=== PATIENT | female | born 2000 | race Hispanic/Latino ===

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

== ENCOUNTER 2021-05-28 13:58 | Emergency (ER) | payer OTHER ==
--- OUTSIDE RECORDS SUMMARY | 2021-05-28 14:00 | XMS REPORT | Continuity of Care Document ---
:2000 Author Organization [facility] Address [facility] Richard Galicia [address] [place] [id number] Care Team Providers Name Role Phone NONSTAFF Primary Care Physician Unavailable Lexie ROGERS Attending Clinician Unavailable Payers Payer Name Policy Type Policy Number Effective Date Expiration Date Lm bartholomew [place] Amber [id number] 2017 2012 [facility] 00:00:00 00:00:00 - [facility] Problems This patient has no known problems. Allergies, Adverse Reactions, Alerts This patient has no known allergies or adverse reactions. Medications This patient has no known medications. Procedures This patient has no known procedures. Encounters Start End Encounter Admission Attending Care Care Encounter Source Date/Time Date/Time Type Type Clinicians Facility Department ID 2017-06-30 2017-06-30 Departed ER [facility] [id number] WALTER Mendoza 19:25:00 22:00:[address] Results Test Description Test Time Test Comments Results Result Comments Source LOWER LEG LEFT [facility] [address] [place], [place] [address] Patient Name: ELISEO PEREZ MR #: [id number] : 2000 Age/Sex: 16/F Req #: [id number] Adm Physician: Ordered by: MEGAN JOYNER RECORDS MANAGER Report #: [id number] Location: ER Room/Bed: Procedure: [id number] DX/LOWER LEG LEFT Exam Date: 06/30/17 Exam Time: 1950 REPORT STATUS: Signed EXAMINATION: ANKLE 3+ VIEWS LEFT, FOOT LEFT COMPLETE, LOWER LEG LEFT 06/30/2017 7:37 PM COMPARISON: None INDICATION: Fall, rule out fracture DISCUSSION: 3 views of the left ankle (AP, lateral, and oblique) 2 views of the left lower leg (AP and lateral) 3 views of the left foot (AP, lateral, and oblique) No fracture or dislocation. Joint spaces are maintained. Soft tissues are unremarkable IMPRESSION: No acute radiographic abnormality of the left ankle, leg, or foot. Eva Jacobs MD Signed by: Dr. Eva Jacobs M.D. on 06/30/2017 9:00 PM Dictated By: EVA JACOBS MD 99 Transcribed By: SELWYN on 06/30/172099 COPY TO: MEGAN JOYNER RECORDS MANAGER FOOT LEFT COMPLETE [place] [address] Patient Name: ELISEO PEREZ MR #: [id number] : 2000 Age/Sex: 16/F Req #: [id number] Adm Physician: Ordered by: MEGAN JOYNER RECORDS MANAGER Report #: [id number] Location: ER Room/Bed: Procedure: [id number] DX/FOOT LEFT COMPLETE Exam Date: 06/30/17 Exam Time: 2007 REPORT STATUS: Signed EXAMINATION: ANKLE 3+ VIEWS LEFT, FOOT LEFT COMPLETE, LOWER LEG LEFT 06/30/2017 7:37 PM COMPARISON: None INDICATION: Fall, rule out fracture DISCUSSION: 3 views of the left ankle (AP, lateral, and oblique) 2 views of the left lower leg (AP and lateral) 3 views of the left foot (AP, lateral, and oblique) No fracture or dislocation. Joint spaces are maintained. Soft tissues are unremarkable IMPRESSION: No acute radiographic abnormality of the left ankle, leg, or foot. Eva Jacobs MD Signed by: Dr. Eva Jacobs M.D. on 06/30/2017 9:00 PM Dictated By: EVA JACOBS MD 99 Transcribed By: SELWYN on 06/30/172099 COPY TO: MEGAN JOYNER RECORDS MANAGER ANKLE 3+ VIEWS [place] [address] Patient Name: ELISEO PEREZ MR #: [id number] : 2000 Age/Sex: 16/F Req #: [id number] Adm Physician: Ordered by: MEGAN JOYNER RECORDS MANAGER Report #: [id number] Location: ER Room/Bed: Procedure: [id number] DX/ANKLE 3+ VIEWS LEFT Exam Date: 06/30/17 Exam Time: 2000 REPORT STATUS: Signed EXAMINATION: ANKLE 3+ VIEWS LEFT, FOOT LEFT COMPLETE, LOWER LEG LEFT 06/30/2017 7:37 PM COMPARISON: None INDICATION: Fall, rule out fracture DISCUSSION: 3 views of the left ankle (AP, lateral, and oblique) 2 views of the left lower leg (AP and lateral) 3 views of the left foot (AP, lateral, and oblique) No fracture or dislocation. Joint spaces are maintained. Soft tissues are unremarkable IMPRESSION: No acute radiographic abnormality of the left ankle, leg, or foot. Eva Jacobs MD Signed by: Dr. Eva Jacobs M.D. on 06/30/2017 9:00 PM Dictated By: EVA JACOBS MD 99 Transcribed By: SELWYN on 06/30/172099 COPY TO: MEGAN JOYNER NP
[2021-05-28 14:30] LABS: Urine Blood 2+ (Negative); Urine Glucose Negative (Negative); Urine Protein Trace (Negative); Urine Specific Gravity 1.025 (1.005-1.030)
[2021-05-28 14:42] LABS: Absolute Lymphocytes (CBC) 2.6 K/uL (0.7-4.9); Hematocrit 34.7 % (36.0-45.0); Lymphocytes % 22.6 % (15.3-44.8); MPV 7.8 fL (7.6-11.3); RBC Red Blood Cell Count 4.61 M/uL (3.86-4.86)
[2021-05-28 14:56] LABS: BUN Blood Urea Nitrogen 4 mg/dL (7-18); Bicarbonate 22 mmol/L (21-32); Glucose Level 90 mg/dL (74-106); Potassium 3.6 mmol/L (3.5-5.1); Sodium Level 135 mmol/L (136-145)
[2021-05-28 15:11] LABS: Anisocytosis 1+; Blood Morphology Comment NOTED (NOT SEEN); Platelet Estimate INCR; White Blood Cell Scan OK (OK)
[2021-05-28 15:15] LABS: HCG, Quantitative 87944 mIU/mL (1-3)
--- NOTE | 2021-05-28 15:59 | RAD REPORT ---
EXAM DESCRIPTION: US - Transvaginal OB - 05/28/2021 3:47 pm CLINICAL HISTORY: with abdominal pain COMPARISON: None. FINDINGS: The uterus measures 9 x 6 x 6 centimeters. Gestational sac is present within the endometr ium measuring 3.8 x 3 x 3.9 centimeters. Within this is a pole with a crown-rump length 2.2 lorenza timeters. Cardiac activity 176 beats per minute. 6 millimeter subchorionic bleed Ovaries are normal in size and echotexture.. The right adnexa unremarkable. Limited evaluation of the left at adnexa secondary to overlying bowel gas No significant free fluid IMPRESSION: Single live into with an estimated gestational age 9 weeks 0 days [facility] 01/01/20 22
--- NOTE | 2021-05-28 16:04 | EDPHYS ---
Physician Documentation [facility] Name: Jessica Tavares Age: 20 yrs Sex: Female : 2000 Arrival Date: 05/28/2021 Time: 14:02 Bed 20 Private MD: ED Physician Hernando Foster HPI: 05/28 14:46 This 20 yrs old Female presents to ER via Ambulatory with complaints of kb Vaginal Bleeding, + Preg <12wks, Abdominal Cramping. 16:01 The patient presents to the emergency department with abdominal pain, described as kb crampy, vaginal bleeding, described as spotting. The estimated gestational age is 8 weeks. course: care: none. Previous pregnancies: the patient has never been . Associated signs and symptoms: Pertinent positives: abdominal pain, vaginal bleeding. The patient has not experienced similar symptoms in the past. The patient has not recently seen a physician. Pt reports bright red blood when she wiped and abd cramping that started today. CAme in to make sure everything was ok. Has not seen an OB yet. 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 - Social history:: Smoking status: Patient denies any tobacco usage or history of. ROS: 16:01 Constitutional: Negative for fever, chills, and weight loss. kb 16:01 Abdomen/GI: Positive for abdominal cramps. 16:01 : Positive for vaginal bleeding. 16:01 All other systems are negative. Exam: 16:01 Constitutional: This is a well developed, well nourished patient who is awake, alert, kb and in no acute distress. Head/Face: Normocephalic, atraumatic. ENT: Moist Mucous membranes Cardiovascular: Regular rate and rhythm with a normal S1 and S2. No gallops, murmurs, or rubs. No pulse deficits. Respiratory: Respirations even and unlabored. No increased work of breathing. Talking in full sentences Abdomen/GI: Soft, non-tender. No distention Skin: Warm, dry with normal turgor. Normal color. MS/ Extremity: Pulses equal, no cyanosis. Neurovascular intact. Full, normal range of motion. Neuro: Awake and alert, GCS 15, oriented to person, place, time, and situation. Moves all extremities. Normal gait. Psych: Awake, alert, with orientation to person, place and time. Behavior, mood, and affect are within normal limits. Vital Signs: 14:08 BP 124 / 70; Pulse 72; Resp 18; Temp 98.4; Pulse Ox 100% ; Weight 102.06 kg; Height 5 ap3 ft. (152.40 cm); 15:34 BP 121 / 71; Pulse 70; Resp 16; Temp 98.6; Pulse Ox 98% ; Pain 0/10; cb5 14:08 Body Mass Index 43.94 (102.06 kg, 152.40 cm) ap3 MDM: 14:17 Patient medically screened. kb 16:01 Data reviewed: vital signs, nurses notes. Data interpreted: Pulse oximetry: on room air kb is 100 %. Interpretation: normal. Counseling: I had a detailed discussion with the patient and/or guardian regarding: the historical points, exam findings, and any diagnostic results supporting the discharge/admit diagnosis, lab results, radiology results, the need for outpatient follow up, an OB/Gyne specialist, to return to the emergency department if symptoms worsen or persist or if there are any questions or concerns that arise at home. 05/28 14:18 Order name: Abo/rh Typing; Complete Time: 16:03 kb 05/28 14:18 Order name: Basic Metabolic Panel; Complete Time: 15:19 kb 05/28 14:18 Order name: CBC with Diff; Complete Time: 15:19 kb 05/28 14:18 Order name: Quantitative Hcg; Complete Time: 15:19 kb 05/28 14:30 Order name: Urine Dipstick-Ancillary; Complete Time: 14:40 EDMS 05/28 14:32 Order name: Urine --Ancillary (enter results) bd 05/28 14:18 Order name: IV Saline Lock; Complete Time: 14:37 kb 05/28 14:18 Order name: Labs collected and sent; Complete Time: 14:37 kb 03/08 14:18 Order name: NPO; Complete Time: 14:37 kb 05/28 14:18 Order name: Urine Dipstick-Ancillary (obtain specimen); Complete Time: 14:37 kb 05/28 14:18 Order name: Urine Test (obtain specimen); Complete Time: 14:37 kb 05/28 14:18 Order name: US Transvaginal Ob; Complete Time: 16:00 kb 05/28 15:11 Order name: CBC Smear Scan; Complete Time: 15:19 EDMS Administered Medications: No medications were administered Point of Care Testing: Urine : 16:17 hCG Reading: Positive; cb5 Disposition: 17:08 Co-signature as Attending Physician, Hernnado Foster MD. rn Disposition Summary: 05/28/21 16:03 Discharge Ordered Location: Home kb Condition: Stable kb Diagnosis - Threatened kb Followup: kb - With: Emergency Department - When: As needed - Reason: Worsening of condition Followup: kb - With: Private Physician - When: 2 - 3 days - Reason: Recheck today's complaints, Continuance of care, Re-evaluation by your physician Discharge Instructions: - Discharge Summary Sheet kb - Threatened Miscarriage, [id number] kb - Vaginal Bleeding During , First Trimester, [id number] kb Forms: - Medication Reconciliation Form kb - Thank You Letter kb - Antibiotic Education kb - Prescription Opioid Use kb Signatures: Dispatcher [employer] Maria Fernanda Morris, NURSE ANESTHESIA PROGRAM DIRECTOR-C NURSE ANESTHESIA PROGRAM DIRECTOR-Hernando Swan MD MD rn Trish Deleon RN RN ap3
--- NOTE | 2021-05-28 16:04 | ER ---
Nurse's Notes [facility] Name: Jessica Tavares Age: 20 yrs Sex: Female : 2000 Arrival Date: 05/28/2021 Time: 14:02 Bed 20 Private MD: Diagnosis: Threatened Presentation: 05/28 14:08 Chief complaint: Patient states: she has been nauseated with severe lower abdominal ap3 cramping. patient reports she is approx 8 weeks , and has noticed vaginal bleeding which she described as bright red. Coronavirus screen: At this time, the client does not indicate any symptoms associated with coronavirus-19. Ebola Screen: No symptoms or risks identified at this time. Initial Sepsis Screen: Does the patient meet any 2 criteria? No. Patient's initial sepsis screen is negative. Does the patient have a suspected source of infection? No. Patient's initial sepsis screen is negative. Risk Assessment: Do you want to hurt yourself or someone else? Patient reports no desire to harm self or others. Onset of symptoms was May 28, 2021. 14:08 Method Of Arrival: Ambulatory ap3 14:08 Acuity: HEATHER 3 ap3 Triage Assessment: 14:11 General: Appears in no apparent distress. Behavior is calm, cooperative, appropriate ap3 for age. Pain: Complains of pain in abdomen Pain currently is 0 out of 10 on a pain scale. at worst was 6 out of 10 on a pain scale. Is intermittent. Neuro: Level of Consciousness is awake, alert, obeys commands, Oriented to person, place, time, situation, Appropriate for age Speech is normal. Cardiovascular: Patient's skin is warm and dry. Respiratory: Airway is patent Respiratory effort is even, unlabored. : Reports cramping, low abdominal cramping vaginal bleeding that is bright red. CPHT: 14:13 LMP 03/26/2021 ap3 14:46 1, 0, Living 0, LMP 03/26/2021 kb Historical: - Allergies: 14:11 No Known Allergies; ap3 - Home Meds: 14:11 None [Active]; ap3 - PMHx: 14:11 None; ap3 - Immunization history:: Client reports receiving the 1st dose of the Covid vaccine, Flu vaccine is up to date. - Social history:: Smoking status: Patient denies any tobacco usage or history of. Screenin:13 Abuse screen: Denies threats or abuse. Nutritional screening: No deficits noted. ap3 Tuberculosis screening: No symptoms or risk factors identified. Fall Risk Fall in past 12 months (25 points). Assessment: 14:30 General: Appears in no apparent distress. comfortable, obese, well groomed, Behavior is cb5 calm, cooperative, appropriate for age. Pain: Complains of pain in abdomen Pain currently is 3 out of 10 on a pain scale. Quality of pain is described as crampy. Neuro: No deficits noted. Level of Consciousness is awake, alert, obeys commands, Oriented to person, place, time, situation, Appropriate for age. Cardiovascular: No deficits noted. Respiratory: No deficits noted. GI: No deficits noted. : No deficits noted. EENT: No deficits noted. Derm: No deficits noted. Musculoskeletal: No deficits noted. 15:09 Reassessment: Patient and/or family updated on plan of care and expected duration. Pain cb5 level reassessed. Vital Signs: 14:08 BP 124 / 70; Pulse 72; Resp 18; Temp 98.4; Pulse Ox 100% ; Weight 102.06 kg; Height 5 ap3 ft. (152.40 cm); 15:34 BP 121 / 71; Pulse 70; Resp 16; Temp 98.6; Pulse Ox 98% ; Pain 0/10; cb5 14:08 Body Mass Index 43.94 (102.06 kg, 152.40 cm) ap3 ED Course: 14:02 Patient arrived in ED. kz 14:07 [facility]C [facility] kb 14:07 Hernando Foster MD is Attending Physician. kb 14:10 Triage completed. ap3 14:13 Arm band placed on right wrist. ap3 14:21 [place] Ren, CRISTIAN is Primary Nurse. cb5 14:24 Initial lab(s) drawn, by ED staff, sent to lab. Urine collected: clean catch specimen. kj1 Inserted saline lock: 20 gauge in right antecubital area, using aseptic technique. Blood collected. 15:10 Patient has correct armband on for positive identification. Call light in reach. Side cb5 rails up X 1. 15:46 US Transvaginal Ob In Process Unspecified. EDMS 16:17 No provider procedures requiring assistance completed. cb5 16:17 IV discontinued. cb5 Administered Medications: No medications were administered Point of Care Testing: Urine : 16:17 hCG Reading: Positive; cb5 Outcome: 16:03 Discharge ordered by MD. angel 16:17 Discharged to home ambulatory. cb5 16:17 Condition: stable 16:17 Discharge instructions given to patient. 16:18 Patient left the ED. cb5 Signatures: Dispatcher [employer] EDMaria Fernanda Avalos, Trish Franks, RN RN ap3 Sigrid Shetty Colleen, CRISTIAN RN cb5 Mirtha Moulton
[2021-05-28 16:45] VITALS: BP 121/71; TEMP 98.6; O2SAT 98
[2021-05-28 18:29] LABS: Urine Specific Gravity/Preg 1.025 (1.005-1.030)
== END 2021-05-28 16:18 | disposition home or self-care (01) ==
LOC: ER 13:58
DX: O20.0 Threatened abortion (principal); Z3A.09 9 weeks gestation of pregnancy
CPT/HCPCS: 36415; 76817; 80048; 81003; 81025; 84702; 85025; 86900; 86901; 99284

== ENCOUNTER 2021-08-06 01:09 | Emergency (ER) | payer OTHER ==
--- OUTSIDE RECORDS SUMMARY | 2021-08-06 01:12 | XMS REPORT | Continuity of Care Document ---
:2000 Author Organization [facility] Address [address] [place] [address] Care Team Providers Name Role Phone NONSTAFF Primary Care Physician Unavailable Lexie ROGERS Attending Clinician Unavailable Payers Payer Name Policy Type Policy Number Effective Date Expiration Date S puma Clark [id number] 2017 2012 [facility] 00:00:00 00:00:00 [facility] Problems This patient has no known problems. Allergies, Adverse Reactions, Alerts This patient has no known allergies or adverse reactions. Medications This patient has no known medications. Procedures This patient has no known procedures. Encounters Start End Encounter Admission Attending Care Care Encounter Source Date/Time Date/Time Type Type Clinicians Facility Department ID 2017-06-30 2017-06-30 Departed ER [facility] [id number] WALTER Goodman 19:25:00 22:00:[address] s Room [facility] Results Test Description Test Time Test Comments Results Result Comments Source CULTURE, URINE 2021-07-13 SPECIMEN NUMBER: [id number] CULTURE, URINE SPECIMEN NUMBER: [id number] SPECIMEN COMMENT: URINE SOURCE: URINE REPORT STATUS: FINAL FINAL REPORT: 07/13/2021 >100,000 CFU/ML UROGENITAL SUSIE PRESENT NO COMMON PATHOGENS DRUG ABUSE SCREEN 10 REFLEX CONFIRM 2021-07-12 05:43:38 Test Item Value Reference Range Interpretation Comme nts AMPHETAMINES (test code = NEGATIVE NEGATIVE 3201) BARBITURATES (test code = NEGATIVE NEGATIVE 3202) BENZODIAZEPINES (test code = NEGATIVE NEGATIVE 3203) CANNABINOIDS (test code = NEGATIVE NEGATIVE 3204) COCAINE METABOLITE (test code NEGATIVE NEGATIVE = 3205) OPIATES (test code = 3209) NEGATIVE NEGATIVE OXYCODONE (test code = 92587) NEGATIVE NEGATIVE PHENCYCLIDINE (test code = NEGATIVE NEGATIVE 3210) METHADONE (test code = 3207) NEGATIVE NEGATIVE BUPRENORPHINE (test code = NEGATIVE NEGATIVE 24328) SOURCE (test code = 271765) URINE SEE BELOW FOR THRESHOLDS AND IMPORTANT M ETHOD NOTES ANALYTE SCREENING CUTOF F CONFIRMATORY CUTOFF AMPHETAMIN ES 500 NG/ML 100 NG/MLBARBITURAT ES 200 NG/ML 100 NG/MLBENZODIAZE PINES 200 NG/ML 100 NG/MLCANNABINOI DS (THC) 20 NG/ML 15 NG/MLCOCAINE ME TABOLITES 150 NG/ML 100 NG/MLOPIATE MET ABOLITES 300 NG/ML 100 NG/MLOXYCODONE 100 NG/ML 100 NG/MLPHENCYCLID INE (PCP) 25 NG/ML 25 NG/MLMETHADONE 300 NG/ML 100 NG/MLBUPRENORPH INE 5 NG/ML 5 NG/ML NOTE: Screening methodology is qualitative Enz yme Immunoassay.The screening metho d may be less sensitive for c ertain medicationsincl uding clonazepam and lorazepam in th e benzodiazepine assay andtramad ol or fentanyl in the opiate assa y, amongst others. Patientcomplian ce, hydration status, timing and dose of medications, dr ugabsorption and specimen qualit y may affect screening assay .For clinical discrepancies, consider directed testing for spe cificcompounds or contact the lab oratory within specimen stabil shirin back for confirmatory te sting. This test is specified for m edicalpurposes only. It is not yoandy d for forensic use. UNLESS OTH ERWISE INDICATED, ALL TESTING PER FORMED [facility]CL[facility] PATHOLOGY [facility] [address] [place] [address] LABORATORY DIRE CTOR: YAYA MERCER M.D. CLIA NUMBER [id number] [place]. [id number] GLUCOSE 1 HR POST 50 [id number] 04:51:49 Test Item Value Reference Range Interpretation Comments GLUCOSE 1 HR POST 50 GM (test code = 87 MG/DL <140 2005) CULTURE, [id number] 08:46:16SPECIMEN NUMBER: [id number] CULTURE, URINE SPECIMEN NUMBER: [id number] SPECIMEN COMMENT: URINE SOURCE: URINE REPORT STATUS: FINAL FINAL REPORT: 06/09/2021 & gt;100,000 CFU/ML UROGENITAL SUSIE PRESENT NO COMMON PATHOGENS DRUG ABUSE SCREEN 10 REFLEX [id number] 12:01:40 Test Item Value Reference Interpretation Comments Range COMMENTS (test code TEST NOT Unable t o perform = 3222) PERFORMED testing due to a laboratory erro r.Charges adjusted as natalie licable. Note: Valid ity testing suggest s an altered, adulte rated or compromised specimen. Analytic detec tion may be affected. Consideration s hould be given to repeat analysis on a newly acquired specimen or cli nical correlation and medication review. AMPHETAMINES (test TEST NOT NEGATIVE code = 3201) PERFORMED BARBITURATES (test TEST NOT NEGATIVE code = 3202) PERFORMED BENZODIAZEPINES TEST NOT NEGATIVE (test code = 3203) PERFORMED CANNABINOIDS (test TEST NOT NEGATIVE code = 3204) PERFORMED COCAINE METABOLITE TEST NOT NEGATIVE (test code = 3205) PERFORMED OPIATES (test code = TEST NOT NEGATIVE 3209) PERFORMED OXYCODONE (test code TEST NOT NEGATIVE = 59851) PERFORMED PHENCYCLIDINE (test TEST NOT NEGATIVE code = 3210) PERFORMED METHADONE (test code TEST NOT NEGATIVE = 3207) PERFORMED BUPRENORPHINE (test TEST NOT NEGATIVE code = 63569) PERFORMED SOURCE (test code = TEST NOT * SEE BELOW FOR 332051) PERFORMED THRESHOLDS AND IMPORTANT METHOD NOTES * ANALYTE SCREENING CUTOF F CONFIRMATORY CUTOFF ___AMPHETAMINES 500 NG/M L 100 NG/MLBARBITURAT ES 200 NG /ML 100 NG/MLBENZODIAZE PINES 200 NG /ML 100 NG/MLCANNABINOI DS (THC) 20 NG /ML 15 NG/MLCOCAINE ME TABOLITES 150 NG /ML 100 NG /MLOPIATE METABOLITES 300 NG/ML 100 NG/MLOXYCOD ONE 10 0 NG/ML 10 0 NG/MLPHENCYCLID INE (PCP) 25 NG /ML 25 NG/MLMETHADONE 300 NG /ML 100 NG/MLBUPRENORPH INE 5 NG /ML 5 NG /ML NOTE: Screening metho dology is qualitative Enz yme Immunoassay.The screening metho d may be less sensitive for certain medicationsincl uding clonazepam and lorazepam in the benzodia zepine assay andtramad ol or fentanyl in the opiate assay, amongst others. Patientcomplian ce, hydration statu s, timing and dose of med ications, drugabsorption and specimen qualit y may affect screenin g assay.For clini hussein discrepancies, consider directed testin g for specificcompoun ds or contact the lab oratory within specimen stability tofor navarro for confirmatory te sting. This test is sp ecified for medicalpurp oses only. It is no t valid for forensic us e. UNLESS OTHERWIS E INDICATED, ALL TESTING PERFORMED [facility]. [address] [address] 4 LABORATORY DIR MESHA: YAYA BARAJAS M.D. CLIA NUMBER [id number] CAP ACCREDITATION N O. [id number] HEMOGLOBIN [id number] 10:51:35 Test Item Value Reference Range Interpretation Comments HEMOGLOBIN A1 (test 97.8 % 95.0-98.5 code = 2575) HEMOGLOBIN A2 (test 2.2 % 1.6-3.7 code = 2576) HEMOGLOBIN F () 0.0 % 0.0-2.0 (test code = 2722) HEMOGLOBIN S (test NONE % NONE DETECTED code = 2724) HEMOGLOBIN C (test NONE % NONE DETECTED code = 2726) OTHER HEMOGLOBIN NONE DETEC % NONE DETECTED VARIANT (test code = 24271) PATHOLOGIST'S (NOTE) NO ABNORMAL INTERPRETATION (test HEMOGLO BINS code = 2577) IDENTIFIED. IF NOT ALREADY PERFORM ED, TESTINGFOR SERU M IRON, TIBC, AND SERAFIN TIN IS SUGGESTED. IF IRON DEFICIENCYEXIST S AND IF HEMOGLOBIN D OES NOT NORMALIZE AFTER IRON STORES AREREPLE NISHED, A REPEAT HEMOGL OBIN ELECTROPHORESIS IS SUGGESTED. IRONDEFICIENCY CAN OBSCURE THE IJEOMA GNOSIS OF ALPHA-THALAS SEMIA OR CAN CAUSEA S PURIOUS DECREASE IN HbA 2, OBSCURING THE DIAGNOSIS OFBETA-THALASSE KATHLEEN. CESAR HOOVER M.D. CT/NG, NAAT, [id number] 18:48:48 Test Item Value Reference Range Interpretation Comments GONORRHEA, NAAT NEGATIVE NEGATIVE IMPORTANT (test code = NOTICE: [place] [address]) [email or web address] Note: Assay methodology is nucleic acid amplification b y web solutions architect mediated amplification ( TMA) utilizing the A ptima Combo 2 Assay. CHLAMYDIA, NAAT NEGATIVE NEGATIVE IMPORTANT (test code = NOTICE: [place] [address]) [email or web address] Note: Assay methodology is nucleic acid amplification b y web solutions architect mediated amplification ( TMA) utilizing the A ptima Combo 2 Assay. VARICELLA ZOSTER [id number] 16:11:55 Test Item Value Reference Range Interpretation Comments VARICELLA ZOSTER IgG 177 INDEX SEE BELOW INTERPRETATION (test code = 99367) VZV IgG N EGATIVE . . . . . . . . . . . . INDEX <135 EQUIVOCAL. . . . . . . . . . . . I NDEX 135-164 NOTE: CONSIDER RETEST ING IN A CLINICALLY SUIT ABLE KAYY OD OF TIME, NO SOONER THAN 1-2 WEEKS. POSITIVE . . . . . . . . . . . . INDEX >=165 OBSTETRIC PANEL + [id number] 03:58:49 Test Item Value Reference Range Interpretation Comments WBC (test code = 11.7 K/UL 3.5-11.0 H 1001) RBC (test code = 4.41 M/UL 3.80-5.40 1002) HEMOGLOBIN (test 10.8 G/DL 11.5-15.5 L code = 1003) HEMATOCRIT (test 33.6 % 34.0-45.0 L code = 1004) MCV (test code = 76.2 fL 80.0-99.0 L 1005) MCH (test code = 24.5 PG 25.0-33.0 L 1006) MCHC (test code = 32.1 G/DL 31.0-36.0 1007) RDW (test code = 18.3 % 11.5-15.0 H 1038) NEUTROPHILS (test 72.5 % code = 1008) LYMPHOCYTES (test 21.3 % code = 1010) MONOCYTES (test 3.8 % code = 1011) EOSINOPHILS (test 1.8 % code = 1012) BASOPHILS (test 0.3 % code = 1013) IMMATURE 0.3 % GRANULOCYTES (test code = 1036) NUCLEATED RBCS 0.0 /100 WBC'S See_Comment [Automate d message] (test code = 1065) The syste m which generated this result transmit leonardo reference range : 0.0. The refere nce range was not u sed to interpret th is result as normal/abnormal . PLATELET COUNT 390 K/UL 130-400 (test code = 1015) ABSOLUTE 8.49 K/UL 1.50-7.50 H NEUTROPHILS (test code = 1066) ABSOLUTE 2.49 K/UL 1.00-4.00 LYMPHOCYTES (test code = 1067) ABSOLUTE MONOCYTES 0.45 K/UL 0.20-1.00 (test code = 1068) ABSOLUTE 0.21 K/UL 0.00-0.50 EOSINOPHILS (test code = 1040) ABSOLUTE BASOPHILS 0.03 K/UL 0.00-0.20 (test code = 1069) ABS IMMATURE 0.04 K/UL 0.00-0.10 GRANULOCYTES (test code = 1020) ABS NUCLEATED RBCS 0.00 K/UL 0.00-0.11 (test code = 25588) BLOOD TYPE AND RH O POSITIVE A HISTORI HUSSEIN RECORD (test code = 3901) CHECK FOR PREVIOUS RESULTS IS NOT PERFORMED.THESE RESULTS SHOULD BE CORRELATED WITH RESULTS OF PRIO R BLOODTYPING AND ANTIBODY SCREEN STUDIES. ANTIBODY SCREEN NEGATIVE NEGATIVE A HISTORICA L RECORD (test code = 3902) CHECK FOR PREVIOUS RESULTS IS NOT PERFORMED.THESE RESULTS SHOULD BE CORRELATED WITH RESULTS OF PRIO R BLOODTYPING AND ANTIBODY SCREEN STUDIES. RUBELLA ANTIBODY 31 IU/ML SEE BELOW SCREEN (test code = INTERPRE TATION 4600) RUBELLA IgG NON-REACTIVE/NO N-IMM UNE . . . . . . . IU/ML < 10 REACTIVE/IM MUNE . . . . . . . . . . . IU/ML >=10 RUBELLA IgG INTERP REACTIVE REACTIVE (test code = 43599) HEPATITIS B SURF AG NON-REACTIVE NON-REACTIVE (test code = 1808) RPR (test code = NON-REACTIVE NON-REACTIVE 52434) RPR TITER (test NOT INDIC. NOT INDIC. code = 3500) TITER HIV 1/2 4TH GEN, NON-REACTIVE NON-REACTIVE RFLX CONF (test code = 3514) HEPATITIS C REFLEX [id number] 03:58:49 Test Item Value Reference Range Interpretation Comments HEPATITIS C ANTIBODY (test code NON-REACTIVE NON-REACTIVE = 4675) [id number] 03:24:31 Test Item Value Reference Range Interpretation Comments RPR RESULT (test code = NON-REACTIVE NON-REACTIVE 3501) RPR TITER (test code = 3500) NOT INDIC. TITER NOT INDIC. ANKLE 3+ VIEWS LEFT [facility] [address] [address] Patient Name: ELISEO PEREZ MR #: [id number] : 2000 Age/Sex: 16/F #: [id number] Adm Physician: Ordered by: MEGAN JOYNER FISCAL OFFICER Report #: [id number] Location: ER Room/Bed: Procedure: [id number] DX/ANKLE 3+ VIEWS LEFT Exam Date: 06/30/17 [...] JACOBS MD 99 Transcribed By: SELWYN on COPY TO: MEGAN JOYNER NPLOWER LEG LEFT [place] [address] Patient Name: ELISEO PEREZ MR #: [id number] : 2000 Age/Sex: 16/F #: [id number] Adm Physician: Ordered by: MEGAN JOYNER FISCAL OFFICER Report #: [id number] Location: ER Room/Bed: Procedure: [id number] DX/LOWER LEG LEFT Exam Date: 06/30/17 Exam [...] SELWYN on 06/30/172099 COPY TO: MEGAN JOYNER NPFOOT LEFT COMPLETE [place] [address] Patient Name: ELISEO PEREZ MR #: [id number] : 2000 Age/Sex: 16/F #: [id number] Adm Physician: Ordered by: MEGAN JOYNER NP Report #: [id number] Location: ER Room/Bed: Procedure: [id number] DX/FOOT LEFT COMPLETE Exam Date: 06/30/17 Exam Time: 2007 REPORT STATUS: Signed EXAMINATION: ANKLE 3+ VIEWS LEFT, FOOT LEFT COMPLETE, LOWER LEG LEFT 06/30/2017 7:37 PM COMPARISON: None INDICATION: Fall, rule out fracture DISCUSSION: 3 views of the left ankle (AP, lateral, and oblique) 2 viewsof the left lower leg (AP and lateral) 3 views of the left foot (AP, lateral, and oblique) Nofracture or dislocation. Joint spaces are maintained. Soft tissues are unremarkable
[2021-08-06 03:14] LABS: Urine Blood Trace-lysed (Negative); Urine Glucose Negative (Negative); Urine Protein Trace (Negative); Urine Specific Gravity >=1.030 (1.005-1.030)
[2021-08-06 03:50] LABS: Urine Bacteria 20-50 /HPF (<20); Urine Urothelial Cells <5 /HPF (NONE SEEN)
--- NOTE | 2021-08-06 04:08 | EDPHYS ---
Physician Documentation [facility] Name: Jessica Tavares Age: 20 yrs Sex: Female : 2000 Arrival Date: 08/06/2021 Time: 01:14 Bed 17 Private MD: ED Physician Miles Long HPI: 08/06 03:05 This 20 yrs old Female presents to ER via Ambulatory with complaints of mh7 Vaginal Itching. 03:05 The patient presents with vaginal discharge, that is a moderate amount of curd-like, mh7 white discharge. Onset: The symptoms/episode began/occurred 1 week(s) ago. Modifying factors: The symptoms are alleviated by nothing, the symptoms are aggravated by urinating. Associated signs and symptoms: Pertinent negatives: constipation, cramping, diarrhea, dyspareunia, fever, hematuria, nausea, urinary frequency, vaginal bleeding, vomiting. Severity of symptoms: At their worst the symptoms were moderate, 3 day(s) ago, in the emergency department the symptoms are unchanged. The patient is sexually active, reportedly has a single partner, uses protection during intercourse. States that she is 19 weeks . She complains of white, cottage cheese like vaginal discharge, and burning with urination for a week. Denies any abdominal pain, pelvic pain, fever, nausea, vomiting, vaginal bleeding.. 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 - Social history:: Smoking status: Patient denies any tobacco usage or history of. ROS: 03:05 Constitutional: Negative for fever, chills, and weight loss, Eyes: Negative for injury, mh7 pain, redness, and discharge, ENT: Negative for injury, pain, and discharge, Neck: Negative for injury, pain, and swelling, Cardiovascular: Negative for chest pain, palpitations, and edema, Respiratory: Negative for shortness of breath, cough, wheezing, and pleuritic chest pain, Abdomen/GI: Negative for abdominal pain, nausea, vomiting, diarrhea, and constipation, Back: Negative for injury and pain, MS/Extremity: Negative for injury and deformity, Skin: Negative for injury, rash, and discoloration, Neuro: Negative for headache, weakness, numbness, tingling, and seizure, Psych: Negative for depression, anxiety, suicide ideation, homicidal ideation, and hallucinations, Allergy/Immunology: Negative for hives, rash, and allergies, Endocrine: Negative for neck swelling, polydipsia, polyuria, polyphagia, and marked weight changes. Exam: 03:05 Constitutional: This is a well developed, well nourished patient who is awake, alert, mh7 and in no acute distress. Head/Face: Normocephalic, atraumatic. Eyes: Pupils equal round and reactive to light, extra-ocular motions intact. Lids and lashes normal. Conjunctiva and sclera are non-icteric and not injected. Cornea within normal limits. Periorbital areas with no swelling, redness, or edema. Neck: Trachea midline, no thyromegaly or masses palpated, and no cervical lymphadenopathy. Supple, full range of motion without nuchal rigidity, or vertebral point tenderness. No Meningismus. Chest/axilla: Normal chest wall appearance and motion. Nontender with no deformity. No lesions are appreciated. Cardiovascular: Regular rate and rhythm with a normal S1 and S2. No gallops, murmurs, or rubs. Normal PMI, no JVD. No pulse deficits. Respiratory: Lungs have equal breath sounds bilaterally, clear to auscultation and percussion. No rales, rhonchi or wheezes noted. No increased work of breathing, no retractions or nasal flaring. Back: No spinal tenderness. No costovertebral tenderness. Full range of motion. Skin: Warm, dry with normal turgor. Normal color with no rashes, no lesions, and no evidence of cellulitis. MS/ Extremity: Pulses equal, no cyanosis. Neurovascular intact. Full, normal range of motion. Neuro: Awake and alert, GCS 15, oriented to person, place, time, and situation. Cranial nerves II-XII grossly intact. Motor strength 5/5 in all extremities. Sensory grossly intact. Cerebellar exam normal. Normal gait. Psych: Awake, alert, with orientation to person, place and time. Behavior, mood, and affect are within normal limits. 03:55 : CVA tenderness, is absent, Pelvic Exam: External exam: is normal, Speculum exam: no mh7 bleeding is noted, no cervicitis, no tissue in cervix is seen, no tissue in vagina is seen, bimanual exam reveals normal findings, discharge, white, the nurse was present for the exam, Gravid exam: Fundal height: consistent with gestational age, Bladder: is normal, non-distended, non-tender, Rectal exam: is refused by patient or guardian. Vital Signs: 01:35 BP 122 / 68; Pulse 75; Resp 16 S; Temp 98.2(O); Pulse Ox 99% on R/A; Weight 107.05 kg bb (R); Height 5 ft. 0 in. (152.40 cm) (R); Pain 0/10; 01:35 Body Mass Index 46.09 (107.05 kg, 152.40 cm) bb MDM: 04:05 Differential diagnosis: efrem infection, cervicitis, urinary tract infection, mh7 vaginosis. Data reviewed: vital signs, nurses notes, lab test result(s), urinalysis, bacteruria. Data interpreted: Pulse oximetry: on room air is 99 %. Interpretation: normal. Counseling: I had a detailed discussion with the patient and/or guardian regarding: the historical points, exam findings, and any diagnostic results supporting the discharge/admit diagnosis, lab results, the need for outpatient follow up, an OB/Gyne specialist, to return to the emergency department if symptoms worsen or persist or if there are any questions or concerns that arise at home. Response to treatment: the patient's symptoms have markedly improved after treatment. 04:08 Patient medically screened. [facility] 08/06 03:12 Order name: Urine Microscopic Only; Complete Time: 04:02 [facility] 08/06 03:12 Order name: Urine Culture [facility] 08/06 03:14 Order name: Urine Dipstick-Ancillary; Complete Time: 04:02 EDMS 08/06 04:02 Order name: GC (GONORR/CHLAMYDIA) Probe [facility] 08/06 04:02 Order name: Wet Prep [facility] 08/06 03:05 Order name: Urine Dipstick-Ancillary (obtain specimen); Complete Time: 03:18 [facility] Administered Medications: 04:15 Drug: Macrobid (nitrofurantoin) 100 mg Route: PO; lp1 04:26 Follow up: Response: Medication administered at discharge. [facility] Disposition Summary: 08/06/21 04:08 Discharge Ordered Location: Home [facility] Problem: new [facility] Symptoms: have improved [facility] Condition: Stable [facility] Diagnosis - Candidiasis of vulva and vagina [facility] - UTI/ Urinary tract infection, site not specified [facility] - 19 weeks gestation of [facility] Followup: [facility] - With: Private Physician - When: 1 - 2 days - Reason: Worsening of condition, Recheck today's complaints, Continuance of care, Re-evaluation by your physician Discharge Instructions: - Discharge Summary Sheet [facility] - Vaginal Yeast Infection, Adult [facility] Forms: - Family Work Release lp1 - Medication Reconciliation Form [facility] - Thank You Letter [facility] - Antibiotic Education [facility] - Prescription Opioid Use [facility] Prescriptions: - Clotrimazole 1 % Vaginal Cream - insert 1 applicatorful by VAGINAL route At bedtime for 7 days; 7 Syringe; [facility] Refills: 0, Product Selection Permitted - Pyridium 200 mg Oral Tablet - take 1 tablet by ORAL route every 8 hours for 2 days; 6 tablet; Refills: 0, [facility] Product Selection Permitted - Macrobid 100 mg Oral Capsule - take 1 capsule by ORAL route every 12 hours for 7 days; 14 capsule; Refills: 0, [facility] Product Selection Permitted Signatures: Dispatcher [employer] Ayana Cervantes RN RN bb Henna West RN RN lp1 Miles Long MD MD [facility]
--- NOTE | 2021-08-06 04:08 | ER ---
Nurse's Notes [facility] Name: Jessica Tavares Age: 20 yrs Sex: Female : 2000 Arrival Date: 08/06/2021 Time: 01:14 Bed 17 Private MD: Diagnosis: Candidiasis of vulva and vagina;UTI/ Urinary tract infection, site not specified;19 weeks gestation of Presentation: 08/06 01:35 Chief complaint: Patient states: she is 19 weeks and has had burning and bb itching in her vaginal area x 1 week with a milky discharge. Coronavirus screen: At this time, the client does not indicate any symptoms associated with coronavirus-19. Ebola Screen: No symptoms or risks identified at this time. Initial Sepsis Screen: Does the patient meet any 2 criteria? No. Patient's initial sepsis screen is negative. Does the patient have a suspected source of infection? No. Patient's initial sepsis screen is negative. Risk Assessment: Do you want to hurt yourself or someone else? Patient reports no desire to harm self or others. Onset of symptoms was July 30, 2021. 01:35 Method Of Arrival: Ambulatory bb 01:35 Acuity: HEATHER 3 bb Triage Assessment: 01:36 General: Appears in no apparent distress. uncomfortable, Behavior is calm, cooperative. bb Pain: Denies pain. Neuro: Level of Consciousness is awake, alert, obeys commands, Oriented to person, place, time, situation. Cardiovascular: No deficits noted. : Reports vaginal itching, and burning. Derm: Skin is pink, warm \T\ dry. Musculoskeletal: Circulation, motion, and sensation intact. 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 - Social history:: Smoking status: Patient denies any tobacco usage or history of. Screenin:07 Abuse screen: Denies threats or abuse. Denies injuries from another. Nutritional lp1 screening: No deficits noted. Tuberculosis screening: No symptoms or risk factors identified. Fall Risk None identified. Assessment: 02:30 General: Appears uncomfortable, Behavior is appropriate for age. Pain: Complains of lp1 pain in groin Quality of pain is described as burning. Neuro: Level of Consciousness is awake, alert, obeys commands. Cardiovascular: Patient's skin is warm and dry. Respiratory: Respiratory effort is even, unlabored. GI: No signs and/or symptoms were reported involving the gastrointestinal system. : Reports discharge, from vagina that is white, vaginal itching, since 1 week ago Currently . EENT: No signs and/or symptoms were reported regarding the EENT system. Derm: Skin is pink, warm \T\ dry. Musculoskeletal: No deficits noted. Vital Signs: 01:35 BP 122 / 68; Pulse 75; Resp 16 S; Temp 98.2(O); Pulse Ox 99% on R/A; Weight 107.05 kg bb (R); Height 5 ft. 0 in. (152.40 cm) (R); Pain 0/10; 01:35 Body Mass Index 46.09 (107.05 kg, 152.40 cm) ED Course: 01:14 Patient arrived in ED. kz 01:36 Triage completed. bb 01:36 Arm band placed on Patient placed in waiting room, Patient notified of wait time. bb Family accompanied patient. 02:21 Miles Long MD is Attending Physician. [facility] 02:30 Patient has correct armband on for positive identification. Placed in gown. lp1 03:27 Henna West, RN is Primary Nurse. lp1 04:00 Assist provider with pelvic exam: Set up pelvic tray. Performed by Miles Long MD lp1 Specimens sent to lab. 04:25 Patient did not have IV access during this emergency room visit. lp1 Administered Medications: 04:15 Drug: Macrobid (nitrofurantoin) 100 mg Route: PO; lp1 04:26 Follow up: Response: Medication administered at discharge. lp1 Medication: 04:07 VIS not applicable for this client. lp1 Outcome: 04:08 Discharge ordered by . [facility] 04:25 Discharged to home ambulatory, with significant other. lp1 04:25 Condition: good 04:25 Discharge instructions given to patient, Instructed on discharge instructions, follow up and referral plans. medication usage, Demonstrated understanding of instructions, follow-up care, medications, Prescriptions given X 3. 04:26 Patient left the ED. lp1 Signatures: Ayana Nettles RN RN bb Henna West RN RN lp1 Miles Long MD MD [facility] Mirtha Moulton
[2021-08-06] MEDS ORDERED: NITROFURAN MACRO 100 MG CAP PO ONE (04:19)
[2021-08-06 04:33] VITALS: BP 122/68; TEMP 98.2; O2SAT 99
[2021-08-08 17:03] LABS: C.trachomatis RNA,TMA Not Detected (Not Detected)
== END 2021-08-06 04:26 | disposition home or self-care (01) ==
LOC: ER 01:09
DX: O98.812 Other maternal infectious and parasitic diseases complicating pregnancy, second trimester (principal); O23.42 Unspecified infection of urinary tract in pregnancy, second trimester; N39.0 Urinary tract infection, site not specified; B37.3 Candidiasis of vulva and vagina; Z3A.19 19 weeks gestation of pregnancy
CPT/HCPCS: 81003; 81015; 87077; 87086; 87088; 87186; 87210; 87490; 87590; 99284

== ENCOUNTER 2021-08-24 19:19 | Emergency (ER) | payer OTHER ==
--- OUTSIDE RECORDS SUMMARY | 2021-08-24 19:21 | XMS REPORT | Continuity of Care Document ---
:2000 Author Organization [facility] Address [facility] [address] [place] [address] Care Team Providers Name Role Phone NONSTAFF Primary Care Physician Unavailable Lexie ROGERS Attending Clinician Unavailable Payers Payer Name Policy Type Policy Number Effective Date Expiration Date Lm Clark [id number] 2017 [address] [facility] 00:00:00 00:00:00 Patient Medical Center Problems This [...] 2017-06-30 Departed ER [facility] [id number] WALTER Goodman 19:25:00 22:00:00 Emergency [facility] [address] [place] [address] s Room Patient [facility] Results Test Description Test Time Test Comments Results Result Comments Source CULTURE, URINE 2021-08-14 SPECIMEN NUMBER: 10:22:58 [id number] CULTURE, URINE SPECIMEN NUMBER: [id number] SPECIMEN COMMENT: URINE SOURCE: URINE REPORT STATUS: FINAL ISOLATE NUMBER 1: IDENTIFICATION: 08/14/2021 50-100,000 CFU/ML BETA-STREPTOCOCCUS GROUP B ADDITIONAL OBSERVATIONS: PENICILLIN AND AMPICILLIN ARE DRUGS OF CHOICE FOR TREATMENT OF B-HEMOLYTIC STREPTOCOCCAL INFECTIONS. SUSCEPTIBILITY TESTING OF PENICILLIN AND OTHER B-LACTAMS APPROVED BY THE US FOOD AND DRUG ADMINISTRATION FOR TREATMENT OF B-HEMOLYTIC STREPTOCOCCAL INFECTIONS NEED NOT BE PERFORMED ROUTINELY. ADDITIONAL OBSERVATIONS: 08/14/2021 50-100,000 CFU/ML UROGENITAL SUSIE PRESENT NO COMMON PATHOGENS MATERNAL AFP FOR NTD ONLY 2021-08-13 15:16:44 Test Item Value Reference Range Interpretation Comme nts INTERPRETATION (test code = SCREEN NEGATIVE 478304) Neural tube defect risk (test 1:1196 code = 51241) Neural tube defect interpretation (NOTE) --- NORMAL - NOT AT (test code = 20869) INCREASE D RISK --- The AFP results indicat e a risk for neural tube def ect less than or equal to parish t of the general population. (A normal result is defined as an Adjusted AFP M.O.M. of less than 2.50 for non-diabetics a nd less than 2.0 for diabetics). The gestation age w as based upon Ultrasound Exam ination. Note that this is a screening test only. Nor mal results are not a guara ntee of a normal . DATE OF (test code = 2660) 2000 MATERNAL WEIGHT (test code = 239 LBS 2657) INITIAL/REPEAT (test code = INITIAL 597094) FAMILY HISTORY OF NTD (test code NO = 947350) INSULIN DEP. DIABETIC (test code NO = 2659) RACE (test code = 2658) SMOKER? (test code = 350739) NO NUMBER OF GESTATIONS (test code = 1 99671) GESTATIONAL AGE (test code = 20.0 WEEKS 2656) DETERMINED BY: (test code = 2654) US DATE OF SONOGRAM (test code = 06/07/2021 63605) GESTATIONAL AGE AT SONO (test 10.6 WEEKS code = 2653) ADJUST AFP M.O.M. (test code = 1.465 M.O.M. 2661) AFP (test code = 18872) 65.0 NG/ML UNLESS OTHERWISE INDICATED, ALL TESTING PERFORMED ATCLINICAL PATH [place] [address] LABORATORY DIRE CTOR: YAYA MERCER M.D. CLIA NUMBER [id number] [place]. [id number] CULTURE, [id number] 09:06:22SPECIMEN NUMBER: [id number] CULTURE, URINE SPECIMEN NUMBER: [id number] SPECIMEN COMMENT: URINE SOURCE: URINE REPORT STATUS: FINAL FINAL REPORT: 07/13/2021 & gt;100,000 CFU/ML UROGENITAL SUSIE PRESENT NO COMMON PATHOGENS DRUG ABUSE SCREEN 10 REFLEX [id number] 05:43:38 Test Item Value Reference Range Interpretation Comments AMPHETAMINES (test NEGATIVE NEGATIVE code = 3201) BARBITURATES (test NEGATIVE NEGATIVE code = 3202) BENZODIAZEPINES (test NEGATIVE NEGATIVE code = 3203) CANNABINOIDS (test NEGATIVE NEGATIVE code = 3204) COCAINE METABOLITE NEGATIVE NEGATIVE (test code = 3205) OPIATES (test code = NEGATIVE NEGATIVE 3209) OXYCODONE (test code NEGATIVE NEGATIVE = 91652) PHENCYCLIDINE (test NEGATIVE NEGATIVE code = 3210) METHADONE (test code NEGATIVE NEGATIVE = 3207) BUPRENORPHINE (test NEGATIVE NEGATIVE code = 03168) SOURCE (test code = URINE * SEE BELOW FOR 875361) THRESHOLDS AND IMPORTANT METHOD NOTES * ANALYTE SCREENING CUTOF F CONFIRMATORY CUTOFF AMPHETAMINES 500 NG/ML 100 NG/MLBARB ITURATES 2 00 NG/ML 10 0 NG/MLBENZODIAZE PINES 200 NG/ ML 100 NG/MLCANNABINOI DS (THC) 20 NG/ ML 15 NG/M LCOCAINE METABOLITES 150 NG/ML 100 NG/MLOPIATE MET ABOLITES 300 NG/ ML 100 NG/M LOXYCODONE 100 NG/ML 100 NG/MLPHENCYCLID INE (PCP) 25 NG/ ML 25 NG/M LMETHADONE 300 NG/ML 100 NG/MLBUPRENORPH INE 5 NG/ ML 5 NG/M L NOTE: Screening metho dology is qualitative Enz yme Immunoassay.The screening method may be l ess sensitive for c ertain medicationsincl uding clonazepam and lorazepam in the benzodia zepine assay andtramad ol or fentanyl in the opiate assay, amongst others. Patientcomplian ce, hydration statu s, timing and dose of med ications, drugabsorption and specimen qualit y may affect screenin g assay.For clini hussein discrepancies, consider directed testin g for specificcompoun ds or contact the lab oratory within specimen stability toforward for confirmatory te sting. This test is sp ecified for medicalpurp oses only. It is not yoandy d for forensic use. UNLESS OTHERWIS E INDICATED, ALL TESTING PERFORMED [facility] [employer] [address] [place] [address] [place], [place] [address] LABORATORY DIRE CTOR: YAYA BARAJAS M.D. CLIA NUMBER [id number] [place]. [id number] GLUCOSE 1 HR POST 50 [id number] 04:51:49 Test Item Value Reference Range Interpretation Comments GLUCOSE 1 HR POST 50 GM (test code = 87 MG/DL <140 2006) CULTURE, [id number] 08:46:16SPECIMEN NUMBER: [id number] CULTURE, URINE SPECIMEN NUMBER: [id number] SPECIMEN COMMENT: URINE SOURCE: URINE REPORT STATUS: FINAL FINAL REPORT: 06/09/2021 & gt;100,000 CFU/ML UROGENITAL SUSIE PRESENT NO COMMON PATHOGENS DRUG ABUSE SCREEN 10 REFLEX [id number] 12:01:40 Test Item Value Reference Interpretation Comments [...] OXYCODONE (test code TEST NOT NEGATIVE = 34399) PERFORMED PHENCYCLIDINE (test TEST NOT NEGATIVE code = 3210) PERFORMED METHADONE (test code TEST NOT NEGATIVE = 3207) PERFORMED BUPRENORPHINE (test TEST NOT NEGATIVE code = 54162) PERFORMED SOURCE (test code = TEST NOT * SEE BELOW FOR 107428) PERFORMED THRESHOLDS AND IMPORTANT METHOD NOTES * [...] UNLESS OTHERWIS E INDICATED, ALL TESTING PERFORMED [email or web address] [address] [place] [address] 4 LABORATORY DIR MESHA: YAYA BARAJAS M.D. CLIA NUMBER [id number] [place] N O. [id number] HEMOGLOBIN [id number] 10:51:35 Test Item Value Reference Range Interpretation [...] % NONE DETECTED VARIANT (test code = 21169) PATHOLOGIST'S (NOTE) NO ABNORMAL INTERPRETATION (test HEMOGLO [...] OFBETA-THALASSE KATHLEEN. CESAR HOOVER M.D. CT/NG, NAAT, [id number] 18:48:48 Test Item Value Reference Range Interpretation Comments GONORRHEA, NAAT NEGATIVE NEGATIVE IMPORTANT (test code = NOTICE: [place] [address]) [email or web address] Note: Assay methodology is nucleic acid amplification b y port surveyor mediated amplification ( TMA) utilizing the A ptEyeQuant Combo 2 Assay. CHLAMYDIA, NAAT NEGATIVE NEGATIVE IMPORTANT (test code = NOTICE: [place] [address]) [email or web address] Note: Assay methodology is nucleic acid amplification b y port surveyor mediated amplification ( TMA) utilizing the A ptEyeQuant Combo 2 Assay. VARICELLA ZOSTER [id number] 16:11:55 Test Item Value Reference Range Interpretation Comments VARICELLA ZOSTER IgG 177 INDEX SEE BELOW INTERPRETATION (test code = 24857) VZV IgG N EGATIVE . . . [...] . . INDEX >=165 OBSTETRIC PANEL + [id number] 03:58:49 Test Item Value Reference Range Interpretation [...] message] (test code = 1065) The syste [employer] which generated this result transmit leonardo reference [...] RBCS 0.00 K/UL 0.00-0.11 (test code = 68126) BLOOD TYPE AND RH O POSITIVE A HISTORI HUSSEIN RECORD (test code = 3907) CHECK FOR PREVIOUS RESULTS IS NOT PERFORMED.THESE RESULTS SHOULD BE CORRELATED WITH RESULTS OF PRIO R BLOODTYPING AND ANTIBODY SCREEN STUDIES. ANTIBODY SCREEN NEGATIVE NEGATIVE A HISTORICA L RECORD (test code = 3908) CHECK FOR PREVIOUS RESULTS IS NOT PERFORMED.THESE RESULTS SHOULD BE CORRELATED WITH RESULTS OF PRIO R BLOODTYPING AND ANTIBODY SCREEN STUDIES. RUBELLA ANTIBODY 31 IU/ML SEE BELOW SCREEN (test code = INTERPRE TATION 3470) RUBELLA IgG NON-REACTIVE/NO N-IMM UNE . . . . . . . IU/ML < 10 REACTIVE/IM MUNE . . . . . . . . . . . IU/ML >=10 RUBELLA IgG INTERP REACTIVE REACTIVE (test code = 28767) HEPATITIS B SURF AG NON-REACTIVE NON-REACTIVE (test code = 2739) RPR (test code = NON-REACTIVE NON-REACTIVE 07584) RPR TITER (test NOT INDIC. NOT INDIC. code = 3500) TITER HIV 1/2 4TH GEN, NON-REACTIVE NON-REACTIVE RFLX CONF (test code = 3514) HEPATITIS C REFLEX [id number] 03:58:49 Test Item Value Reference Range Interpretation Comments HEPATITIS C ANTIBODY (test code NON-REACTIVE NON-REACTIVE = 4675) [id number] 03:24:31 Test Item Value Reference Range Interpretation Comments RPR RESULT (test code = NON-REACTIVE NON-REACTIVE 3501) RPR TITER (test code = 3500) NOT INDIC. TITER NOT INDIC. LOWER LEG LEFT [place] [address] Patient Name: ELISEO PEREZ MR #: [id number] : 2000 Age/Sex: 16/F #: [id number] Adm Physician: Ordered by: MEGAN JOYNER MAIL ORDER SORTER Report #: [id number] Location: ER Room/Bed: Procedure: [id number] DX/LOWER LEG LEFT Exam Date: 06/30/17 Exam [...] COPY TO: MEGAN JOYNER NPFOOT LEFT COMPLETE [place] [address] Patient Name: ELISEO PEREZ MR #: [id number] : 2000 Age/Sex: 16/F #: [id number] Adm Physician: Ordered by: MEGAN JOYNER MAIL ORDER SORTER Report #: [id number] Location: ER Room/Bed: Procedure: [id number] DX/FOOT LEFT COMPLETE Exam Date: 06/30/17 Exam [...] SELWYN on 06/30/172099 COPY TO: MEGAN JOYNER NPANKLE 3+ VIEWS LEFT [facility] [address] [place] [address] Patient Name: ELISEO PEREZ MR #: [id number] : 2000 Age/Sex: 16/F #: [id number] Adm Physician: Ordered by: MEGAN JOYNER NP Report #: [id number] Location: ER Room/Bed: Procedure: [id number] DX/ANKLE 3+ VIEWS LEFT Exam Date: 06/30/17 [...] By: SELWYN on COPY TO: MEGAN JOYNER NP
--- NOTE | 2021-08-24 19:51 | ER ---
Nurse's Notes [facility] Name: Jessica Tavares Age: 21 yrs Sex: Female : 2000 Arrival Date: 08/24/2021 Time: 19:22 Bed Waiting Private MD: Diagnosis: Influenza Presentation: 08/24 19:40 Chief complaint: Patient states: I've been having flu like symptoms. my obgyn told me kd3 to come here. I'm 21 weeks . last night I was vomiting and i have muscle aches. Coronavirus screen: Vaccine status: Patient reports receiving the 1st dose of the Covid vaccine. Date December 2021. Ebola Screen: No symptoms or risks identified at this time. Initial Sepsis Screen: Does the patient meet any 2 criteria? No. Patient's initial sepsis screen is negative. Does the patient have a suspected source of infection? No. Patient's initial sepsis screen is negative. Risk Assessment: Do you want to hurt yourself or someone else? Patient reports no desire to harm self or others. Onset of symptoms was August 24, 2021. 19:40 Method Of Arrival: Ambulatory kd3 19:40 Acuity: HEATHER 3 kd3 Triage Assessment: 19:44 General: Appears in no apparent distress. Behavior is calm, cooperative. Pain: kd3 Complains of pain in generalized body aches. Neuro: Level of Consciousness is awake, alert, obeys commands, Oriented to person, place, time, situation. Cardiovascular: Patient's skin is warm and dry. Respiratory: Airway is patent Trachea midline Respiratory effort is even, unlabored, Respiratory pattern is regular, symmetrical. 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 - Social history:: Smoking status: Patient denies any tobacco usage or history of. Screenin:48 Abuse screen: Denies threats or abuse. Denies injuries from another. Nutritional kd3 screening: No deficits noted. Tuberculosis screening: No symptoms or risk factors identified. Fall Risk None identified. Assessment: 20:21 Reassessment: pt seen in triage and discharged from the lobby. kd3 Vital Signs: 19:40 BP 110 / 81; Pulse 110; Resp 17; Temp 97.4(TE); Pulse Ox 100% on R/A; Weight 107.05 kg; kd3 Height 5 ft. (152.40 cm); 19:40 Body Mass Index 46.09 (107.05 kg, 152.40 cm) kd3 ED Course: 19:22 Patient arrived in ED. ja2 19:24 Carlos Hooper DO is Attending Physician. ms3 19:43 Triage completed. kd3 19:44 Arm band placed on right wrist. kd3 19:48 Patient has correct armband on for positive identification. kd3 19:48 No provider procedures requiring assistance completed. Patient did not have IV access kd3 during this emergency room visit. 19:49 Merle Rosas, RN is Primary Nurse. kd3 Administered Medications: No medications were administered Medication: 19:49 VIS not applicable for this client. kd3 Outcome: 19:48 Discharged to home ambulatory, with family. kd3 19:48 Condition: stable 19:48 Discharge instructions given to patient, family, Instructed on discharge instructions, follow up and referral plans. medication usage, Demonstrated understanding of instructions, follow-up care, medications, Prescriptions given X 19:50 Discharge ordered by MD. ms3 20:20 Patient left the ED. kd3 Signatures: Carlos Hooper DO DO ms3 Kay Wilhelm ja2 Merle Rosas, RN RN kd3
--- NOTE | 2021-08-24 19:51 | EDPHYS ---
Physician Documentation [facility] Name: Jessica Tavares Age: 21 yrs Sex: Female : 2000 Arrival Date: 08/24/2021 Time: 19:22 Bed Waiting Private MD: ED Physician Carlos Hooper HPI: 08/24 19:50 This 21 yrs old Female presents to ER via Ambulatory with complaints of Flu ms3 Symptoms. 19:50 The patient or guardian reports cough, Fever. Onset: The symptoms/episode ms3 began/occurred 2 day(s) ago. Severity of symptoms: At their worst the symptoms were moderate, in the emergency department the symptoms are unchanged. Modifying factors: The symptoms are alleviated by Tylenol, the symptoms are aggravated by nothing. Associated signs and symptoms: Pertinent positives: fever, Pertinent negatives: chest pain. 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 - Social history:: Smoking status: Patient denies any tobacco usage or history of. ROS: 19:52 Eyes: Negative for injury, pain, redness, and discharge, Neck: Negative for injury, ms3 pain, and swelling, Cardiovascular: Negative for chest pain, and palpitations. 19:52 Skin: Negative for injury, rash, and discoloration, Psych: Negative for depression, anxiety, suicide ideation, homicidal ideation, and hallucinations. 19:52 Constitutional: Positive for body aches, chills, fever. 19:52 Respiratory: Positive for cough. 19:52 All other systems are negative. Exam: 19:52 Constitutional: This is a well developed, well nourished patient who is awake, alert, ms3 and in no acute distress. Eyes: Pupils equal round and reactive to light, extra-ocular motions intact. Lids and lashes normal. Conjunctiva and sclera are non-icteric and not injected. Periorbital areas with no swelling, redness, or edema. ENT: Nares patent. No nasal discharge, no septal abnormalities noted. Tympanic membranes are normal and external auditory canals are clear. Oropharynx with no redness, swelling, or masses, exudates, or evidence of obstruction, uvula midline. Mucous membranes moist. Neck: Trachea midline, no cervical lymphadenopathy. Supple, full range of motion without nuchal rigidity, or vertebral point tenderness. No Meningismus. Chest/axilla: Normal chest wall appearance and motion. Nontender with no deformity. Cardiovascular: Regular rate and rhythm with a normal S1 and S2. No gallops, murmurs, or rubs. Normal PMI, no JVD. No pulse deficits. Respiratory: Lungs have equal breath sounds bilaterally, clear to auscultation and percussion. No rales, rhonchi or wheezes noted. No increased work of breathing, no retractions or nasal flaring. Abdomen/GI: Soft, non-tender, with normal bowel sounds. No distension or tympany. No guarding or rebound. No evidence of tenderness throughout. Psych: Awake, alert, with orientation to person, place and time. Behavior, mood, and affect are within normal limits. Vital Signs: 19:40 BP 110 / 81; Pulse 110; Resp 17; Temp 97.4(TE); Pulse Ox 100% on R/A; Weight 107.05 kg; kd3 Height 5 ft. (152.40 cm); 19:40 Body Mass Index 46.09 (107.05 kg, 152.40 cm) kd3 MDM: 19:47 Patient medically screened. ms3 19:52 Differential Diagnosis: Influenza Upper Respiratory Infection Viral Syndrome. Data ms3 reviewed: vital signs, nurses notes. Counseling: I had a detailed discussion with the patient and/or guardian regarding: the historical points, exam findings, and any diagnostic results supporting the discharge/admit diagnosis, the need for outpatient follow up, to return to the emergency department if symptoms worsen or persist or if there are any questions or concerns that arise at home. ED course: Discussed physical exam findings with patient. Patient to follow-up with primary care physician in 2 to 3 days. Patient understands and agrees with plan. All questions were answered. Return precautions discussed include worsening symptoms, or any other concerns.. Administered Medications: No medications were administered Disposition Summary: 08/24/21 19:50 Discharge Ordered Location: Home ms3 Condition: Stable ms3 Diagnosis - Influenza ms3 Followup: ms3 - With: Private Physician - When: 2 - 3 days - Reason: Re-evaluation by your physician Discharge Instructions: - Discharge Summary Sheet ms3 - Influenza, Adult, [id number] ms3 Forms: - Medication Reconciliation Form ms3 - Thank You Letter ms3 - Antibiotic Education ms3 - Prescription Opioid Use ms3 Prescriptions: - Tamiflu 75 mg Oral Capsule - take 1 tablet by ORAL route every 12 hours for 5 days; 10 tablet; Refills: 0, ms3 Product Selection Permitted Signatures: Carlos Hooper DO DO ms3 Merle Rosas, RN RN kd3
[2021-08-24 20:24] VITALS: BP 110/81; TEMP 97.4; O2SAT 100
== END 2021-08-24 20:20 | disposition home or self-care (01) ==
LOC: ER 19:19
DX: J11.1 Influenza due to unidentified influenza virus with other respiratory manifestations (principal); Z20.822 Contact with and (suspected) exposure to COVID-19
CPT/HCPCS: 99282

== ENCOUNTER 2022-01-10 17:25 | Inpatient (IN) | payer OTHER ==
--- OUTSIDE RECORDS SUMMARY | 2022-01-10 17:31 | XMS REPORT | Continuity of Care Document ---
:2000 Author Organization [facility] Address [address] [place] [place] [address] Care Team Providers Name Role Phone NONSTAFF Primary Care Physician Unavailable MIMI FLOWER Attending Clinician Unavailable Mimi Jo Attending Clinician Enrrique Agarwal MD Attending Clinician Loly Robledo MD Attending Clinician [phone] Abelino Richardson MD Attending Clinician Salas Cifuentes MD Attending Clinician Doctor Unassigned, [place] Attending Clinician Unavailable INDIRA PEÑA Attending Clinician Unavailable Visit, [place] Nurse Attending Clinician Unavailable CHAITANYA JACOBO Attending Clinician Unavailable Princess Hayes DO Attending Clinician [place] Attending Clinician Chaitanya Jacobo MD Attending Clinician Michael, [place] Attending Clinician Unavailable Ultrasound, Ang-Mfm Attending Clinician Unavailable Yassine Gaspar MD Attending Clinician YASSINE GASPAR Attending Clinician Unavailable YASSINE GASPAR Attending Clinician Unavailable YUNG ROGERS Attending Clinician Unavailable CHAITANYA JACOBO Admitting Clinician Unavailable Loly Robledo MD Admitting Clinician [phone] LOLY ROBLEDO Admitting Clinician Unavailable Chaitanya Jacobo MD Admitting Clinician Payers Payer Name Policy Type Policy Number Effective Date Expiration Date Lm bartholomew [place] [employer] [id number] 2016 HEALTH 00:00:00 [place] [facility] [id number] 2017 2012 [facility] 00:00:00 00:00:00 [facility] Problems Condition Condition Condition Status Onset Resolution Last Treating Co mments Source Name Details Category Date Date Treatment Clinician Date Disease Active 2021-03 Univers (spontaneo (spontaneo 0-13 it y [place] vaginal [place] delivery[place] delivery[place] 00 [facility] Single Single Disease Active 2021-03 Univers live live 0-13 it y of 00:00: [place] 00 [facility] Branch Obstetrica Obstetrica Disease Active 2021-03 U nivers l l 0-13 ity of laceration [place] 00 [facility] [place] Acute Acute Disease Active 2021-03 Univers blood loss blood loss 0-13 it y of anemia anemia 00:00: [place] 00 [facility] Branch Rubella Rubella Disease Active 2021-03 Univers non-immune non-immune 0-13 it y of status, status, 00:00: [place] antepartum antepartum 00 Ca dical Branch GBS (group GBS (group Disease Active 2021-03 Overview : Univers B B 0-12 Formattin ity of Streptococ Streptococ 00:00: g of this [place] cus cus 00 note Medical carrier), carrier), might be Br anch +RV +RV different culture, culture, from the currently currently original. Address in labor and Delivery Elevated Elevated Disease Active 2021-03 Unive rs BP without BP without 0-10 it y of diagnosis diagnosis 00:00[place] of of 00 Medical hypertensi hypertensi Br anch on on 38 weeks 38 weeks Disease Active 2021-03 Unive rs gestation gestation 0-10 ity of of of 00:00: [place] 00 [facility] Depression Depression Disease Active 2021-03 U nivers 0-10 ity of 00:00: [place] 00 [facility] Branch Internal Internal Disease Active Unive rs hemorrhoid hemorrhoid 8-16 it y of s s 00:00: [place] 00 Medical Branch Diet Diet Disease Active Univers controlled controlled 8-10 it y of gestationa gestationa 00:00[place] l diabetes l diabetes 00 Me dical mellitus mellitus Branch (GDM) in (GDM) in third third trimester trimester Anemia of Anemia of Disease Active Uni vers mother in mother in 10-16 ity of , , 00:00: [place] antepartum antepartum 00 Me dical Branch Maternal Maternal Disease Active Overview: [place] varicella, varicella, 6-08 Formattin ity of non-immune non-immune 00:00: g of this [place] 00 note Medical might be Branch different from the original. Address in PP BMI BMI Disease Active Univers 45.0-49.9, 45.0-49.9, 6-06 it y of adult adult 00:00: [place] [address] Medical Branch Morbid Morbid Disease Active Univers obesity obesity 08-26 ity of 00:00: [address] History of History of Disease Active U nivers depression depression 6-06 it y of 00:00: [place] [facility] Multiparit Multiparit Disease Active U nivers y y 606 ity of 00:00: [address] Supervisio Supervisio Disease Active U nivers n of high n of high 6-06 ity of risk risk 00:00: [place] , , 00 Me dical antepartum antepartum Br anch Allergies, Adverse Reactions, Alerts Allergy Allergy Status Severity Reaction(s) Onset Inactive Treating Comm ents Source Name Type Date Date Clinician NO KNOWN Drug Active Univers ALLERGIE Class ity of [facility] Social History Social Habit Start Date Stop Date Quantity Comments Source ASSERTION 2021-04-16 [facility] 00:00:00 [facility] Alcohol intake 2022-01-01 2022-01-01 Ex-drinker [facility] 00:00:00 00:00:00 (finding) [facility] Exposure to 2021-12-20 2021-12-30 Not sure [facility] SARS-CoV-2 00:00:00 19:31:00 [facility] [place] [facility] (event) Branch Tobacco use and 2021-10-16 2021-10-16 Smokeless tobacco Un iversity of exposure 00:00:00 00:00:[address] [facility] Sex Assigned At 2000 2000 Universit y of 00:00:00 00:00:00 [facility] Smoking Status Start Date Stop Date Source Never smoked tobacco [facility] Medications Ordered Filled Start Stop Current Ordering Indication Dosage Frequency Signature Comments Components Source Medication Medication Date Date Medication? Clinician (SIG) Name Name ascorbic 2021-03 Yes 500mg 500 mg, Unive rs acid 0-13 Oral, BID, ity of (vitamin C) 14:00: First dose [place] (VITAMIN C) 00 on [facility] Medica l tablet 500 01/02/22 Branc h mg at 0900, Until Discontinu ed, Routine ferrous 2021-03 Yes 325mg 325 mg, Univer s sulfate 0-13 Oral, BID, ity of tablet 325 14:00: First dose [place] mg 00 on [facility] Medical 01/02/22 Branch at 0900, Until Discontinu ed, Routine varicella 2021-03 Yes 1{each} 0.5 mL (1 Univers virus 0-13 Each), ity of vaccine 12:53: Subcutaneo [facility] live 48 , Medical (VARIVAX) ONCE-PRIOR Bran ch injection TO and diluent DISCHARGE, vial 1 dose, Starting on [facility] 01/02/22 at 0753, Until Discontinu ed, Routine, Give vaccine prior to discharge oseltamivir 2021-03- No Take by [place] phosphate 0-13 10-13 mouth. ity of (TAMIFLU 07:56: 00:00 [place] ORAL) 35 :00 Medical Branch 2021-03 Yes [id number] 1{tbl} Take 1 Univers [id number] 0-13 tablet by ity of fum-folic 00:00: mouth in [facility] 27 mg iron- 00 the Medical 1 mg folic morning. Branc h tablet docusate 2021-03 Yes [id number] 200mg Take 2 U nivers 100 mg 0-13 capsules ity of capsule 00:00: by mouth [place] [address] once daily Medical as needed Branch for Constipati on. ferrous 2021-03 Yes [id number] 325mg Take 1 [place] sulfate 325 0-13 tablet by ity of mg (65 mg 00:00: mouth in [facility] iron) 00 the Medical tablet morning Branch and 1 tablet in the evening. ibuprofen 2021-03 Yes [id number] 600mg Take 1 Univers 600 mg 0-13 tablet by ity of tablet 00:00: mouth [place] 00 every 6 Medical (six) Branch hours as needed (Pain). Take with food or milk. foLIC acid 2021-03 Yes [id number] 1mg Take 1 Univers 1 mg tablet 0-13 tablet by ity of 00:00: mouth in [place] 00 the Medical morning. Branch 2021-03 Yes [id number] 1{tbl} Take 1 Univers [id number] 0-13 tablet by ity of fum-folic 00:00: mouth in [facility] s 27 mg iron- 00 the Medical 1 mg folic morning. Branc h tablet docusate 2021-03 Yes [id number] 200mg Take 2 U nivers 100 mg 0-13 capsules ity of capsule 00:00: by mouth [place] 00 once daily Medical as needed Branch for Constipati on. ferrous 2021-03 Yes [id number] 325mg Take 1 [place] sulfate 325 0-13 tablet by ity of mg (65 mg 00:00: mouth in [facility] iron) 00 the Medical tablet morning Branch and 1 tablet in the evening. ibuprofen 2021-03 Yes [id number] 600mg Take 1 Univers 600 mg 0-13 tablet by ity of tablet 00:00: mouth [place] 00 every 6 Medical (six) Branch hours as needed (Pain). Take with food or milk. foLIC acid 2021-03 Yes [id number] 1mg Take 1 Univers 1 mg tablet 0-13 tablet by ity of 00:00: mouth in [place] 00 the Medical morning. Branch 2021-03 Yes [id number] 1{tbl} Take 1 Univers [id number] 0-13 tablet by ity of fum-folic 00:00: mouth in [facility] 27 mg iron- 00 the Medical 1 mg folic morning. Branc h tablet docusate 2021-03 Yes [id number] 200mg Take 2 U nivers 100 mg 0-13 capsules ity of capsule 00:00: by mouth [place] 00 once daily Medical as needed Branch for Constipati on. ferrous 2021-03 Yes [id number] 325mg Take 1 [place] sulfate 325 0-13 tablet by ity of mg (65 mg 00:00: [facility] Medical tablet morning Branch and 1 tablet in the evening. ibuprofen 2021-03 Yes [id number] 600mg Take 1 Univers 600 mg 0-13 tablet by ity of tablet 00:00: mouth [place] 00 every 6 Medical (six) Branch hours as needed (Pain). Take with food or milk. foLIC acid 2021-03 Yes [id number] 1mg Take 1 Univers 1 mg tablet 0-13 tablet by ity of 00:00: mouth in [place] 00 the Medical morning. Branch rho(D) 2021-03 Yes 300ug 300 mcg, Univer s immune 0-12 Intramuscu ity of globulin 13:35: lar, ONCE, [place] (RHOGAM) 12 For 1 Medical syringe 300 dose, Branch mcg Conditiona l, Routine diphenhydrA 2021-03 Yes 25mg 25 mg, Univ ers MINE 0-12 Oral, ity of (BENADRYL) 13:35: Q6HPRN, [place] tablet 25 02 Starting Medica l mg on Thu Branch 01/01/22 at 0835, Until Discontinu ed, Routine, Sleep, Itching ondansetron 2021-03 Yes 4mg 4 mg, Slow Univers (ZOFRAN 0-12 IV Push, ity of (PF)) 13:35: Q8HPRN, [place] injection 4 02 Starting Medi yan mg on Thu Branch 01/01/22 at 0835, Until Discontinu ed, Routine, Nausea and Vomiting (N/V) simethicone 2021-03 Yes 160mg 160 mg, [place] (GAS RELIEF 0-12 Oral, ity of (SIMETHICON 13:35: PC+HSPRN, [place] E)) 02 Starting Medical chewable on Thu tablet 160 01/01/22 mg at 0835, Until Discontinu ed, Routine, Gas docusate 2021-03 Yes 200mg 200 mg, Unive rs (COLACE) 0-12 Oral, ity of capsule 200 13:35: QDAILYPRN, [place] mg 02 Starting Medical on Thu Branch 01/01/22 at 0835, Until Discontinu ed, Routine, Constipati on magnesium 2021-03 Yes 30mL 30 mL, Univer s hydroxide 0-12 Oral, ity of (MILK OF 13:35: QDAILYPRN, [place] MAGNESIA) 02 Starting Medica l 400 mg/5 mL on Thu Branch suspension 01/01/22 30 mL at 0835, Until Discontinu ed, Routine, Constipati on benzocaine- 2021-03 Yes Topical, [place] menthol 0-12 PRN, ity of (DERMOPLAST 13:25: Starting [place] ) 20-0.5 % 56 on Thu Medical topical 01/01/22 Branch spray at 0825, Until Discontinu ed, Routine, Perineum discomfort ibuprofen 2021-03 Yes 600mg 600 mg, Univ ers (IBU) 0-12 Oral, ity of tablet 600 12:36: Q6HPRN, [place] mg 04 Starting Medical on Thu Branch 01/01/22 at 0736, Until Discontinu ed, Routine, Pain (scale 4-6) acetaminoph 2021-03 Yes 650mg 650 mg, [place] en 0-12 Oral, ity of (TYLENOL) 12:36: Q6HPRN, [place] tablet 650 04 Starting Medic al mg on Thu Branch 01/01/22 at 0736, Until Discontinu ed, Routine, Pain (scale 1-3) oxytocin 2021-03- No 300mL/h 300 mL/hr, Univers (PITOCIN) 0-12 -12 IV ity of 30 units in 10:34: 13:35 Infusion, [place] NS 500 mL 12 :10 SEE-INSTRU Medi yan IV infusion CTIONS, Branc h Starting on Thu01/01/[address] at 300 mL/hr for 1 hr then 150 mL/hr for 1 hr. & nbsp; For post delivery uterotonic
oseltamivir 2021-03 Yes Take by Uni vers phosphate 0-12 mouth. ity of (TAMIFLU 05:35: [place] ORAL) 54 Medical Branch lactated 2021-03- No 500mL at 999 Unive rs ringers IV 0-12 10-12 mL/hr, 500 it y of infusion 03:45: 03:36 mL, IV [place] 500 mL 00 :00 Infusion, Medical ONCE, 1 Branch dose, On Thu12/31/21 at 2245, Routine sodium 2021-03- No 30mL 30 mL, Univers citrate-cit 0-12 10-12 Oral, ity of radha acid 02:54: 02:56 PRE-PROCED [place] (BICITRA) 39 :00 URE ONCE, Medic al 500-334 1 dose, Branch mg/5 mL Starting solution 30 on Thu mL 12/31/21 at 2154, Until Thu12/31/21 at 2156, Routine, Surgery/Pr ocedure sodium 2021-03- No 30mL 30 mL, Univers citrate-cit 0-12 10-12 Oral, ONCE i ty of radha acid 01:00: 00:14 NOW, 1 [place] (BICITRA) 00 :00 dose, On Medica l 500-334 e Branch mg/5 mL 12/31/21 solution 30 at 2000, mL Routine lactated 2021-03- No 500mL at 999 Unive rs ringers IV 0-12 10-12 mL/hr, 500 it y of infusion 00:27: 01:21 mL, IV [place] 500 mL 34 :00 Infusion, Medical PRN - SEE Branch INSTRUCTIO NS, 1 dose, Starting on Thu12/31/21 at 1927, Until Thu12/31/21 at 202, Routine lactated 2021-03- No 500mL at 999 Unive rs ringers IV 0-11 10-11 mL/hr, 500 it y of infusion 19:15: 20:12 mL, IV [place] 500 mL 00 :18 Infusion, Medical ONCE, 1 Branch dose, On Thu12/31/21 at 1415, Routine ropivacaine 2021-03 Yes Epidural, U nivers 0.2 % 0-11 CONTINUOUS ity of (NAROPIN 19:10: PRN, [place] (PF)) 00 Starting Medical epidural on Tue Branch infusion 12/31/21 at 1410, Until Discontinu ed, Routine, Intra-op ropivacaine 2021-03- No Epidural, Univers 0.2 % 0-11 10-12 CONTINUOUS ity of (NAROPIN 19:10: 11:35 PRN, [place] (PF)) 00 :22 Starting Medical epidural on Tue Branch infusion 12/31/21 at 1410, Until Discontinu ed, Routine, Intra-op lidocaine-e 2021-03 Yes Intraderma Univers pinephrine 0-11 l, ONCE ity of (XYLOCAINE 19:04: INTRA [place] W/EPINEPHRI 00 PROCEDURE, Me dical NE) 1.5 Starting Branch %-1:200,000 on e injection 12/31/21 at 1404, Until Discontinu ed, Routine, Intra-op lidocaine-e 2021-03- No Intraderma Univers pinephrine 0-12 l, ONCE ity o f (XYLOCAINE 19:04: 11:35 INTRA [place] W/EPINEPHRI 00 :22 PROCEDURE, Me dical NE) 1.5 Starting Branch %-1:200,000 on Tue injection 12/31/21 at 1404, Until Discontinu ed, Routine, Intra-op lidocaine 2021-03 Yes Infiltrati [place] 1% 0-11 on, ONCE ity of (XYLOCAINE) 18:58: INTRA [place] 100 mg/10 00 PROCEDURE, Medi yan mL (1 %) Starting Branch injection on Thu12/31/21 at 1358, Until Discontinu ed, Routine, Intra-op lidocaine 2021-03- No Infiltrati U nivers 1% 011 -12 on, ONCE ity of (XYLOCAINE) 18:58: 11:35 INTRA [place] 100 mg/10 00 :22 PROCEDURE, Medi yan mL (1 %) Starting Branch injection on Thu12/31/21 at 1358, Until Discontinu ed, Routine, Intra-op lactated 2021-03- No 500mL at 999 Unive rs ringers IV 0 10-11 mL/hr, 500 it y of infusion 18:16: 19:18 mL, IV [place] 500 mL 35 :47 Infusion, Medical PRN - SEE Branch INSTRUCTIO NS, 1 dose, Starting on Thu12/31/21 at 1316, Until Thu12/31/21 at 1418, Routine sodium 2021-03- No 30mL 30 mL, Univers citrate-cit 012-31 Oral, ity of radha acid 18:16: 18:50 PRE-PROCED [place] (BICITRA) 35 :00 URE ONCE, Medic al 500-334 1 dose, Branch mg/5 mL Starting solution 30 on Thu mL 12/31/21 at 1316, Until Thu12/31/21 at 1350, Routine, Surgery/Pr ocedure proMETHazin 2021-03- No 12.5mg 12.5 mg, Univers e 012-31 IV ity of (PHENERGAN) 13:45: 14:07 Piggyback, [place] 12.5 mg in 00 :38 at 200 Medical NS 50 mL IV mL/hr Branch piggyback Administer (CNR) over 15 Minutes, ONCE, 1 dose, On Thu12/31/21 at 0845, Routine butorphanol 2021-03- No 1mg 1 mg, Univ ers (STADOL) 0- 10-11 Intravenou ity of injection 1 13:45: 13:08 s, ONCE, 1 [place] mg 00 :00 dose, On [facility] 12/31/21 at 0845, Routine oxytocin 2021-03- No 2mU/min at 2-40 [place] (PITOCIN) 0-11 10-12 mL/hr, IV ity of 30 units in 11:49: 13:35 Infusion, [place] NS 500 mL 16 :10 TITRATE, Medica l IV infusion Starting Bran ch on Thu12/31/21 at 0649, Until Thu01/01/22 at 0835, CAN proMETHazin 2021-03- No 12.5mg 12.5 mg, Univers e 011 IV ity of (PHENERGAN) 07:15: 09:13 Piggyback, [place] 12.5 mg in 00 :00 at 200 Medical NS 50 mL IV mL/hr Branch piggyback Administer (CNR) over 15 Minutes, ONCE, 1 dose, On [facility] 12/31/21 at 0215, Routine butorphanol 2021-03- No 1mg 1 mg, Univ ers (STADOL) 0-11 10-11 Intravenou ity of injection 1 07:15: 06:30 s, ONCE, 1 [place] mg 00 :00 dose, On [facility] 12/31/21 at 0215, Routine Sliding 2021-03- No Subcutaneo Uni vers Scale 0-11 10-12 us, Q4H, ity of Insulin-Reg 05:00: 13:35 First dose [place] ular + Fsbg 00 :10 on Tue Medica l Testing 12/31/21 Branch at 0000, Until Discontinu ed, Routine [id number]-[id number] IV 2021-03- No 1000mL at 1-125 U nivers infusion 0-11 10-12 mL/hr, IV ity o f 1,000 mL 02:24: 13:35 Infusion, [place] 18 :10 TITRATE, [facility] on 12/30/21 at 2124, Until Thu01/01/22 at 0835, Routine oseltamivir 2021-03 Yes Take by Uni vers phosphate 0-10 mouth. ity of (TAMIFLU 19:36: [place] ORAL) 14 [facility] hydrocortis Yes [id number] 25mg Insert 1 Univers one 25 mg 8-16 Suppositor ity of suppository 00:00: y [place] 00 rectum in [facility] morning and 1 Suppositor y in the evening. hydrocortis Yes [id number] 25mg Insert 1 Univers one 25 mg 8-16 Suppositor ity of suppository 00:00: y into [place] rectum in [facility] morning and 1 Suppositor y in the evening. hydrocortis Yes [id number] 25mg Insert 1 Univers one 25 mg 8-16 Suppositor ity of suppository 00:00: y into [place] rectum in [facility] morning and 1 Suppositor y in the evening. hydrocortis Yes [id number] 25mg Insert 1 Univers one 25 mg 8-16 Suppositor ity of suppository 00:00: y [place] rectum in [facility] morning and 1 Suppositor y in the evening. hydrocortis Yes [id number] 25mg Insert 1 Univers one 25 mg 8-16 Suppositor ity of suppository 00:00: y [place] rectum in [facility] morning and 1 Suppositor y in the evening. hydrocortis Yes [id number] 25mg Insert 1 Univers one 25 mg 8-16 Suppositor ity of suppository 00:00: y into [place] rectum in [facility] morning and 1 Suppositor y in the evening. hydrocortis Yes [id number] 25mg Insert 1 Univers one 25 mg 8-16 Suppositor ity of suppository 00:00: y into [place] rectum in [facility] morning and 1 Suppositor y in the evening. hydrocortis Yes [id number] 25mg Insert 1 Univers one 25 mg 8-16 Suppositor ity of suppository 00:00: y into [place] rectum in [facility] morning and 1 Suppositor y in the evening. hydrocortis Yes [id number] 25mg Insert 1 Univers one 25 mg 8-16 Suppositor ity of suppository 00:00: y into [place] rectum in [facility] morning and 1 Suppositor y in the evening. hydrocortis Yes [id number] 25mg Insert 1 Univers one 25 mg 8-16 Suppositor ity of suppository 00:00: y into [place] rectum in [facility] morning and 1 Suppositor y in the evening. hydrocortis 2021- No [id number] 25mg Insert 1 Univers one 25 mg 8-16 10-13 Suppositor ity of suppository 00:00: 00:00 y into [place] 00 :00 rectum in [facility] morning and 1 Suppositor y in the evening. ascorbic Yes [id number] 500mg Take 1 U nivers acid, 8-10 tablet by ity of vitamin C, 00:00: mouth in [place] 500 mg 00 the Medical tablet morning Branch and 1 tablet at noon and 1 tablet in the evening. ferrous Yes [id number] 325mg Take 1 [place] sulfate 325 8-10 tablet by ity of mg (65 mg 00:00: mouth [place] iron) 00 the Medical tablet morning Branch and 1 tablet in the evening. ascorbic 2021-0 Yes [id number] 500mg Take 1 U nivers acid, 8-10 tablet by ity of vitamin C, 00:00: mouth in [place] 500 mg 00 the Medical tablet morning Branch and 1 tablet at noon and 1 tablet in the evening. ferrous 2021-0 Yes [id number] 325mg Take 1 [place] sulfate 325 8-10 tablet by ity of mg (65 mg 00:00: mouth [place] iron) 00 the Medical tablet morning Branch and 1 tablet in the evening. ascorbic 2021-0 Yes [id number] 500mg Take 1 U nivers acid, 8-10 tablet by ity of vitamin C, 00:00: mouth in [place] 500 mg 00 the Medical tablet morning Branch and 1 tablet at noon and 1 tablet in the evening. ferrous 2021-0 Yes [id number] 325mg Take 1 [place] sulfate 325 8-10 tablet by ity of mg (65 mg 00:00: mouth [place] iron[place] 00 the Medical tablet morning Branch and 1 tablet in the evening. ascorbic 2021-0 Yes [id number] 500mg Take 1 U nivers acid, 8-10 tablet by ity of vitamin C, 00:00: mouth in [place] 500 mg 00 the Medical tablet morning Branch and 1 tablet at noon and 1 tablet in the evening. ferrous 2021-0 Yes [id number] 325mg Take 1 [place] sulfate 325 8-10 tablet by ity of mg (65 mg 00:00: mouth [place] iron) 00 the Medical tablet morning Branch and 1 tablet in the evening. ascorbic 0 Yes [id number] 500mg Take 1 U nivers acid, 8-10 tablet by ity of vitamin C, 00:00: mouth in [place] 500 mg 00 the Medical tablet morning Branch and 1 tablet at noon and 1 tablet in the evening. ferrous 2021-0 Yes [id number] 325mg Take 1 [place] sulfate 325 8-10 tablet by ity of mg (65 mg 00:00: mouth in [place] iron) 00 the Medical tablet morning Branch and 1 tablet in the evening. ascorbic 2021-0 Yes [id number] 500mg Take 1 U nivers acid, 8-10 tablet by ity of vitamin C, 00:00: mouth in [place] 500 mg 00 the Medical tablet morning Branch and 1 tablet at noon and 1 tablet in the evening. ferrous 2021-0 Yes [id number] 325mg Take 1 [place] sulfate 325 8-10 tablet by ity of mg (65 mg 00:00: mouth [place] iron[place] 00 the Medical tablet morning Branch and 1 tablet in the evening. ascorbic 2021-0 Yes [id number] 500mg Take 1 U nivers acid, 8-10 tablet by ity of vitamin C, 00:00: mouth in [place] 500 mg 00 the Medical tablet morning Branch and 1 tablet at noon and 1 tablet in the evening. ferrous 2021-0 Yes [id number] 325mg Take 1 [place] sulfate 325 8-10 tablet by ity of mg (65 mg 00:00: mouth in [place] iron) 00 the Medical tablet morning Branch and 1 tablet in the evening. ascorbic Yes [id number] 500mg Take 1 U nivers acid, 8-10 tablet by ity of vitamin C, 00:00: mouth in [place] 500 mg 00 the Medical tablet morning Branch and 1 tablet at noon and 1 tablet in the evening. ferrous Yes [id number] 325mg Take 1 [place] sulfate 325 8-10 tablet by ity of mg (65 mg 00:00: mouth [place] iron) 00 the Medical tablet morning Branch and 1 tablet in the evening. ascorbic 0 Yes [id number] 500mg Take 1 U nivers acid, 8-10 tablet by ity of vitamin C, 00:00: mouth in [place] 500 mg 00 the Medical tablet morning Branch and 1 tablet at noon and 1 tablet in the evening. ferrous Yes [id number] 325mg Take 1 [place] sulfate 325 8-10 tablet by ity of mg (65 mg 00:00: mouth [place] iron) 00 the Medical tablet morning Branch and 1 tablet in the evening. ascorbic Yes [id number] 500mg Take 1 U nivers acid, 8-10 tablet by ity of vitamin C, 00:00: mouth in [place] 500 mg 00 the Medical tablet morning Branch and 1 tablet at noon and 1 tablet in the evening. ferrous Yes [id number] 325mg Take 1 [place] sulfate 325 8-10 tablet by ity of mg (65 mg 00:00: mouth in [place] iron) 00 the Medical tablet morning Branch and 1 tablet in the evening. ascorbic 2021- No [id number] 500mg Take 1 Univers acid, 8-10 10-13 tablet by ity of vitamin C, 00:00: 00:00 mouth in [place] 500 mg 00 :00 the Medical tablet morning Branch and 1 tablet at noon and 1 tablet in the evening. ferrous 0 2021- No [id number] 325mg Take 1 U nivers sulfate 325 8-10 10-13 tablet by it y of mg (65 mg 00:00: 00:00 mouth in [place] iron) 00 :00 the Medical tablet morning Branch and 1 tablet in the evening. oseltamivir Yes Take by Uni vers phosphate 8-01 mouth. ity of (TAMIFLU 20:52: [place] ORAL) 40 Medical Branch oseltamivir 0 Yes Take by Uni vers phosphate 8-01 mouth. ity of (TAMIFLU 20:52: [place] ORAL) 40 Medical Branch oseltamivir 0 Yes Take by Uni vers phosphate 8-01 mouth. ity of (TAMIFLU 20:52: [place] ORAL) 40 Medical Branch oseltamivir Yes Take by Uni vers phosphate 8- mouth. ity of (TAMIFLU 20:52: [place] ORAL) 40 Medical Branch oseltamivir 0 Yes Take by Uni vers phosphate 8- mouth. ity of (TAMIFLU 20:52: [place] ORAL) 40 Medical Branch oseltamivir Yes Take by Uni vers phosphate 8- mouth. ity of (TAMIFLU 20:52: [place] ORAL) 40 Medical Branch oseltamivir Yes Take by Uni vers phosphate 8- mouth. ity of (TAMIFLU 20:52: [place] ORAL) 40 Medical Branch oseltamivir Yes Take by Uni vers phosphate 8-01 mouth. ity of (TAMIFLU 20:52: [place] ORAL) 40 Medical Branch Blood-Gluco Yes [id number] Use as Univers se Meter 10-21 directed ity of (FREESTYLE 00:00: [place] FREEDOM 00 Medical LITE) Kit Branch blood sugar Yes [id number] Use as Univers diagnostic 10-21 directed ity o f (FREESTYLE 00:00: [place] LITE 00 Medical STRIPS) Branch strip lancets 17 Yes [id number] Use as U nivers gauge Misc 10-21 directed ity o f 00:00: [place] 00 Medical Branch metroNIDAZO 0 Yes [id number] 500mg Take 1 Univers LE (FLAGYL) 10-21 tablet by ity of 500 mg 00:00: mouth [place] tablet 00 every 12 Medical (twelve) Branch hours. Nitrofurant 0 Yes [id number] 100mg Take 1 Univers oin&Nit. 10-21 capsule by ity o f Macrocryst 00:00: mouth in [place] 100 mg 00 the Medical capsule morning Branch and 1 capsule in the evening. Blood-Gluco Yes [id number] Use as Univers se Meter 10-21 directed ity of (FREESTYLE 00:00: [place] FREEDOM 00 Medical LITE) Kit Branch blood sugar 0 Yes [id number] Use as Univers diagnostic 10-21 directed ity o f (FREESTYLE 00:00: [place] LITE 00 Medical STRIPS) Branch strip lancets 17 0 Yes [id number] Use as U nivers gauge Misc 10-21 directed ity o f 00:00: [place] 00 Medical Branch metroNIDAZO 0 Yes [id number] 500mg Take 1 Univers LE (FLAGYL) 8-01 tablet by ity of 500 mg 00:00: mouth [place] tablet 00 every 12 Medical (twelve) Branch hours. Nitrofurant 0 Yes [id number] 100mg Take 1 Univers oin&Nit. 8-01 capsule by ity o f Macrocryst 00:00: mouth in [place] 100 mg 00 the Medical capsule morning Branch and 1 capsule in the evening. Blood-Gluco 0 Yes [id number] Use as Univers se Meter 10-21 directed ity of (FREESTYLE 00:00: [place] FREEDOM 00 Medical LITE) Kit Branch blood sugar 0 Yes [id number] Use as Univers diagnostic 10-21 directed ity o f (FREESTYLE 00:00: [place] LITE 00 Medical STRIPS) Branch strip lancets 17 0 Yes [id number] Use as U nivers gauge Misc 10-21 directed ity o f 00:00: [place] 00 Medical Branch metroNIDAZO 2021-0 Yes [id number] 500mg Take 1 Univers LE (FLAGYL) 8-01 tablet by ity of 500 mg 00:00: mouth [place] tablet 00 every 12 Medical (twelve) Branch hours. Nitrofurant 2021-0 Yes [id number] 100mg Take 1 Univers oin&Nit. 8-01 capsule by ity o f Macrocryst 00:00: mouth in [place] 100 mg 00 the Medical capsule morning Branch and 1 capsule in the evening. Blood-Gluco 2021-0 Yes [id number] Use as Univers se Meter 10-21 directed ity of (FREESTYLE 00:00: [place] FREEDOM 00 Medical LITE) Kit Branch blood sugar 2021-0 Yes [id number] Use as Univers diagnostic 10-21 directed ity o f (FREESTYLE 00:00: [place] LITE 00 Medical STRIPS) Branch strip lancets 17 Yes [id number] Use as U nivers gauge Misc 8 directed ity o f 00:00: [place] 00 Medical Branch metroNIDAZO Yes [id number] 500mg Take 1 Univers LE (FLAGYL) 8-01 tablet by ity of 500 mg 00:00: mouth [place] tablet 00 every 12 Medical (twelve) Branch hours. Nitrofurant Yes [id number] 100mg Take 1 Univers oin&Nit. 8-01 capsule by ity o f Macrocryst 00:00: mouth in [place] 100 mg 00 the Medical capsule morning Branch and 1 capsule in the evening. Blood-Gluco Yes [id number] Use as Univers se Meter 8 directed ity of (FREESTYLE 00:00: [place] FREEDOM 00 Medical LITE) Kit Branch blood sugar Yes [id number] Use as Univers diagnostic 10-21 directed ity o f (FREESTYLE 00:00: [place] LITE 00 Medical STRIPS) Branch strip lancets 17 Yes [id number] Use as U nivers gauge Misc 10-21 directed ity o f 00:00: [place] 00 Medical Branch metroNIDAZO Yes [id number] 500mg Take 1 Univers LE (FLAGYL) 8-01 tablet by ity of 500 mg 00:00: mouth [place] tablet 00 every 12 Medical (twelve) Branch hours. Nitrofurant Yes [id number] 100mg Take 1 Univers oin&Nit. 8-01 capsule by ity o f Macrocryst 00:00: mouth in [place] 100 mg 00 the Medical capsule morning Branch and 1 capsule in the evening. Blood-Gluco Yes [id number] Use as Univers se Meter 8 directed ity of (FREESTYLE 00:00: [place] FREEDOM 00 Medical LITE) Kit Branch blood sugar 0 Yes [id number] Use as Univers diagnostic 8 directed ity o f (FREESTYLE 00:00: [place] LITE 00 Medical STRIPS) Branch strip lancets 17 0 Yes [id number] Use as U nivers gauge Misc 10-21 directed ity o f 00:00: [place] 00 Medical Branch metroNIDAZO 0 Yes [id number] 500mg Take 1 Univers LE (FLAGYL) 8-01 tablet by ity of 500 mg 00:00: mouth [place] tablet 00 every 12 Medical (twelve) Branch hours. Nitrofurant 2021-0 Yes [id number] 100mg Take 1 Univers oin&Nit. 8-01 capsule by ity o f Macrocryst 00:00: mouth in [place] 100 mg 00 the Medical capsule morning Branch and 1 capsule in the evening. Blood-Gluco 2021-0 Yes [id number] Use as Univers se Meter 8 directed ity of (FREESTYLE 00:00: [place] FREEDOM 00 Medical LITE) Kit Branch blood sugar 0 Yes [id number] Use as Univers diagnostic 8- directed ity o f (FREESTYLE 00:00: [place] LITE 00 Medical STRIPS) Branch strip lancets 17 0 Yes [id number] Use as U nivers gauge Misc 8 directed ity o f 00:00: [place] 00 Medical Branch metroNIDAZO 2021-0 Yes [id number] 500mg Take 1 Univers LE (FLAGYL) 8-01 tablet by ity of 500 mg 00:00: mouth [place] tablet 00 every 12 Medical (twelve) Branch hours. Nitrofurant 2021-0 Yes [id number] 100mg Take 1 Univers oin&Nit. 8-01 capsule by ity o f Macrocryst 00:00: mouth in [place] 100 mg 00 the Medical capsule morning Branch and 1 capsule in the evening. Blood-Gluco 2021-0 Yes [id number] Use as Univers se Meter 8 directed ity of (FREESTYLE 00:00: [place] FREEDOM 00 Medical LITE) Kit Branch blood sugar 0 Yes [id number] Use as Univers diagnostic 8 directed ity o f (FREESTYLE 00:00: [place] LITE 00 Medical STRIPS) Branch strip lancets 17 0 Yes [id number] Use as U nivers gauge Misc 8 directed ity o f 00:00: [place] 00 Medical Branch metroNIDAZO 2021-0 Yes [id number] 500mg Take 1 Univers LE (FLAGYL) 8-01 tablet by ity of 500 mg 00:00: mouth [place] tablet 00 every 12 Medical (twelve) Branch hours. Nitrofurant 2021-0 Yes [id number] 100mg Take 1 Univers oin&Nit. 8-01 capsule by ity o f Macrocryst 00:00: mouth in [place] 100 mg 00 the Medical capsule morning Branch and 1 capsule in the evening. Blood-Gluco 2021-0 Yes [id number] Use as Univers se Meter 8 directed ity of (FREESTYLE 00:00: [place] FREEDOM 00 Medical LITE) Kit Branch blood sugar 0 Yes [id number] Use as Univers diagnostic 10-21 directed ity o f (FREESTYLE 00:00: [place] LITE 00 Medical STRIPS) Branch strip lancets 17 0 Yes [id number] Use as U nivers gauge Misc 8 directed ity o f 00:00: [place] 00 Medical Branch metroNIDAZO 0 Yes [id number] 500mg Take 1 Univers LE (FLAGYL) 8-01 tablet by ity of 500 mg 00:00: mouth [place] tablet 00 every 12 Medical (twelve) Branch hours. Nitrofurant 2021-0 Yes [id number] 100mg Take 1 Univers oin&Nit. 8-01 capsule by ity o f Macrocryst 00:00: mouth in [place] 100 mg 00 the Medical capsule morning Branch and 1 capsule in the evening. Blood-Gluco 2021-0 Yes [id number] Use as Univers se Meter 10-21 directed ity of (FREESTYLE 00:00: [place] FREEDOM 00 Medical LITE) Kit Branch blood sugar 0 Yes [id number] Use as Univers diagnostic 10-21 directed ity o f (FREESTYLE 00:00: [place] LITE 00 Medical STRIPS) Branch strip lancets 17 0 Yes [id number] Use as U nivers gauge Misc 8 directed ity o f 00:00: [place] 00 Medical Branch metroNIDAZO 2021-0 Yes [id number] 500mg Take 1 Univers LE (FLAGYL) 8-01 tablet by ity of 500 mg 00:00: mouth [place] tablet 00 every 12 Medical (twelve) Branch hours. Nitrofurant 2021-0 Yes [id number] 100mg Take 1 Univers oin&Nit. 8-01 capsule by ity o f Macrocryst 00:00: mouth in [place] 100 mg 00 the Medical capsule morning Branch and 1 capsule in the evening. Blood-Gluco 2021-0 2021- No [id number] Use as Univers se Meter 8-01-02 directed ity of (FREESTYLE 00:00: 00:00 [place] FREEDOM 00 :00 Medical LITE) Kit Branch blood sugar 2021- No [id number] Use as Univers diagnostic 10-21 directed ity of (FREESTYLE 00:00: 00:00 [place] LITE 00 :00 Medical STRIPS) Branch strip lancets 17 2021- No [id number] Use as Univers gauge Misc 10-21 directed ity of 00:00: 00:00 [place] 00 :00 Medical Branch metroNIDAZO 2021- No [id number] 500mg Take 1 Univers LE (FLAGYL) 10-21 tablet by it y of 500 mg 00:00: 00:00 mouth [place] tablet 00 :00 every 12 Medical (twelve) Branch hours. Nitrofurant 2021- No [id number] 100mg Take 1 Univers oin&Nit. 10-21 capsule by ity of Macrocryst 00:00: 00:00 [place] 100 mg 00 :00 the Medical capsule morning Branch and 1 capsule in the evening. Yes [id number] 1{packe Take 1 Univers vit 6-06 t} Packet by ity of 33-iron-fol 00:00: mouth [place] ic-dha 00 daily. Medical (SELECT-OB Branch + DHA) 29 mg iron-1 mg -250 mg combo pack Yes [id number] 1{packe Take 1 Univers vit 6-06 t} Packet by ity of 33-iron-fol 00:00: mouth [place] ic-dha 00 daily. Medical (SELECT-OB Branch + DHA) 29 mg iron-1 mg -250 mg combo pack Yes [id number] 1{packe Take 1 Univers vit 6-06 t} Packet by ity of 33-iron-fol 00:00: mouth [place] ic-dha 00 daily. Medical (SELECT-OB Branch + DHA) 29 mg iron-1 mg -250 mg combo pack Yes [id number] 1{packe Take 1 Univers vit 6-06 t} Packet by ity of 33-iron-fol 00:00: mouth [place] ic-dha 00 daily. Medical (SELECT-OB Branch + DHA) 29 mg iron-1 mg -250 mg combo pack Yes [id number] 1{packe Take 1 Univers vit 6-06 t} Packet by ity of 33-iron-fol 00:00: mouth [place] ic-dha 00 daily. Medical (SELECT-OB Branch + DHA) 29 mg iron-1 mg -250 mg combo pack Yes [id number] 1{packe Take 1 Univers vit 6-06 t} Packet by ity of 33-iron-fol 00:00: mouth [place] ic-dha 00 daily. Medical (SELECT-OB Branch + DHA) 29 mg iron-1 mg -250 mg combo pack Yes [id number] 1{packe Take 1 Univers vit 6-06 t} Packet by ity of 33-iron-fol 00:00: mouth [place] ic-dha 00 daily. Medical (SELECT-OB Branch + DHA) 29 mg iron-1 mg -250 mg combo pack Yes [id number] 1{packe Take 1 Univers vit 6-06 t} Packet by ity of 33-iron-fol 00:00: mouth [place] ic-dha 00 daily. Medical (SELECT-OB Branch + DHA) 29 mg iron-1 mg -250 mg combo pack Yes [id number] 1{packe Take 1 Univers vit 6-06 t} Packet by ity of 33-iron-fol 00:00: mouth [place] ic-dha 00 daily. Medical (SELECT-OB Branch + DHA) 29 mg iron-1 mg -250 mg combo pack Yes [id number] 1{packe Take 1 Univers vit 6-06 t} Packet by ity of 33-iron-fol 00:00: mouth [place] ic-dha 00 daily. Medical (SELECT-OB Branch + DHA) 29 mg iron-1 mg -250 mg combo pack 2022- No [id number] 1{packe Take 1 Univers vit 6-06 10-13 t} Packet by ity of 33-iron-fol 00:00: 00:[place] ic[place]dha 00 :00 daily. Medical (SELECT-OB Branch + DHA) 29 mg iron-1 mg -250 mg combo pack Immunizations Ordered Filled Immunization Date Status Comments [facility] Immunization Name Name TDAP 2021-10-16 Completed [place] of 00:00:00 [place] [facility] TDAP 2021-10-16 Completed University of 00:00:00 [place] [facility] TDAP 2021-10-16 Completed University of 00:00:00 [place] [facility] TDAP 2021-10-16 Completed University of 00:00:00 [place] [facility] TDAP 2021-10-16 Completed University of 00:00:00 [place] [facility] TDAP 2021-10-16 Completed University of 00:00:00 [place] [facility] TDAP 2021-10-16 Completed University of 00:00:00 [place] [facility] TDAP 2021-10-16 Completed University of 00:00:00 [place] [facility] TDAP 2021-10-16 Completed University of 00:00:00 [place] [facility] TDAP 2021-10-16 Completed University of 00:00:00 [place] [facility] TDAP 2021-10-16 Completed University of 00:00:00 [place] [facility] TDAP 2021-10-16 Completed University of 00:00:00 [place] [facility] TDAP 2021-10-16 Completed University of 00:00:00 [facility] Vital Signs Vital Name Observation Time Observation Value Comments Source Systolic blood 2022-01-03 21:43:00 128 mm[Hg] Univer sity of pressure [facility] Diastolic blood 2022-01-03 21:43:00 71 mm[Hg] Unive rsity of pressure [facility] Heart rate 2022-01-03 21:43:00 80 /min [facility] Body temperature 2022-01-03 21:43:00 36.61 Eli [facility] Respiratory rate 2022-01-03 21:43:00 18 /min [facility] Oxygen saturation in 2022-01-03 21:43:00 98 /min [facility] Arterial blood by [facility] Pulse oximetry Branch Body height 2021-12-31 19:48:00 152.4 cm [facility] Body weight 2021-12-31 19:48:00 113.445 kg [facility] BMI 2021-12-31 19:48:00 48.84 kg/m2 [facility] Systolic blood 2021-12-30 21:32:00 148 mm[Hg] Univer sity of pressure [facility] Diastolic blood 2021-12-30 21:32:00 92 mm[Hg] Unive rsity [facility] Systolic blood 2021-12-30 20:48:00 161 mm[Hg] Univer sity [facility] Diastolic blood 2021-12-30 20:48:00 92 [facility]Hg[facility] 2021-12-30 20:30:00 81 /min [facility] Respiratory rate 2021-12-30 20:30:00 17 /min [facility] Body weight 2021-12-30 20:30:00 113.445 kg [facility] BMI 2021-12-30 20:30:00 48.84 kg/m2 [facility] Procedures Procedure Date / Time Performed Performing Clinician Sour e CBC WITH DIFF 2022-01-03 17:57:[address] [facility] POCT GLUCOSE 2022-01-02 11:02:00 [facility] (AUT[facility] CBC WITH DIFF 2022-01-02 05:08:00 Emily Wu [facility] VENOUS CORD GAS 2022-01-01 10:35:[address] [facility] POCT GLUCOSE 2022-01-01 09:02:00 [facility] ([facility] POCT GLUCOSE 2022-01-01 07:01:00 [facility] ([facility] POCT GLUCOSE 2022-01-01 04:50:00 [facility] CENTRAL NEURAXIAL 2022-01-01 03:35:18 Dulce Maria [facility] POCT GLUCOSE 2022-01-01 02:57:00 [facility] ([facility]) [facility] CENTRAL NEURAXIAL 2022-01-01 01:03:31 Dulce Maria [facility] POCT GLUCOSE 2021-12-31 23:14:00 [facility] POCT GLUCOSE 2021-12-31 19:21:00 [facility] ([facility]OM[facility]) [facility] CENTRAL NEURAXIAL 2021-12-31 19:05:32 [facility] POCT GLUCOSE 2021-12-31 15:29:00 [facility] POCT GLUCOSE 2021-12-31 11:20:00 [facility] POCT GLUCOSE 2021-12-31 07:50:00 [facility] CBC WITH DIFF 2021-12-31 06:11[facility]00 [facility] 2021-12-31 06:10[facility]00 [facility] HIV 1/2 AG-AB WITH 2021-12-31 06:10:00 John [facility] REFLEX [facility] GALV ONLY - SYPHILIS 2021-12-31 06:10[facility] Branch HB ABO GROUPING 2021-12-31 05:22:00 [facility] RHO (D) IMMUNE 2021-12-31 05:22:[address] [facility] PO[facility] GLU[facility]SE 2021-12-31 05:12:00 [facility] ([facility] POCT URINALYSIS 2021-12-30 00:00:00 Mimi Flower [facility] EXTERNAL PROVIDER 2021-11-27 05:01:00 Doctor Unassigned, No Univ [facility] RECORDS Name Medical Branch Encounters Start End Encounter Admission Attending Care Care Encounter Source Date/Time Date/Time Type Type Clinicians Facility Department ID 2021-10-21 Outpatient P [facility] [id number] Univers 20:53:25 [facility] 2022-01-10 2022-01-10 Outpatient R CHING [facility] [id number] Univers 13:00:00 13:00:00 [address]DA ity o f [facility] 2022-01-10 2022-01-10 [facility] [id number] Univers 00:00:00 00:00:00 Rosjulionda R DRAWER MAKER [id number] ity of [facility] 4.2.7.2.686 [place] as MATERNAL [id number] Med ical & CHILD [address] [place] [address] 2022-01-05 2022-01-05 [facility] [id number] Univers 00:00:00 00:00:00 Radhanda R DRAWER MAKER [id number] ity of REGIONAL 4.2.7.2.686 [place] as MATERNAL [id number] Med ical & CHILD [address] [place] [address] 2021-12-30 2022-01-03 [facility] Enrirque Agarwal [id number] Univers 19:35:00 20:15:00 Encounter Saravanan Johnbarak RANKIN 350. 1.13.10 ity of HOSPITAL 4.2.7.2.686 [place] as [id number] [facility] 133 Branch 2021-12-31 2022-01-01 Anesthesia Abelino Richardson 1.2.840.1 [id number] Univers 13:45:00 06:35:00 Event MaryDebby kingjohnnyaretha MASSIEL 350.1.13.10 ity of [facility] 4.2.7.2.686 [place] as [id number] [facility] 132 Branch 2021-12-30 2021-12-30 [facility] [id number] Univers 15:15:00 16:38:[address] ity o f [facility] 2021-12-30 2021-12-30 [facility] 1.2.840.114 [id number] Univers 15:15:00 15:30:00 Rosnda R DRAWER MAKER 350.1.13.10 ity of Visit [facility] 4.2.7.2.686 [place] as MATERNAL [id number] Med ical & CHILD 107 Branch [facility] 2021-12-30 2021-12-30 [facility] [id number] Univers 15:15:00 15:15:[address] o [address] [facility] 2021-11-28 2021-11-28 Outpatient R [facility] [id number] Univers 15:30:00 15:30:[address] [facility] 2021-11-27 2021-11-27 Orders Doctor JOCE 1.2.840.114 [id number] Univers 00:00:00 00:00:00 Only Unassigned, MASSIEL 350.1.13.10 ity of [place] [facility] 4.2.7.2.686 [place] as [id number] [address] 2021-11-14 2021-11-14 Outpatient R [facility] [id number] Univers 15:15:00 15:15:[address] [facility] 2021-11-06 2021-11-06 Telephone [facility] [id number] Univers 00:00:00 00:00:00 Roshunda R DRAWER MAKER 350.1.13.10 ity of REGIONAL 4.2.7.2.686 [place] as MATERNAL [id number] [address] 2021-11-05 2021-11-05 Outpatient R [facility] [id number] Univers 14:30:00 15:25:[address] o [address] [facility] 2021-11-05 2021-11-05 Routine [facility] 1.2.840.114 [id number] Univers 14:30:00 15:25:34 Roshunda R DRAWER MAKER 350.1.13.10 ity of Visit REGIONAL 4.2.7.2.686 [place] as MATERNAL [id number] [address] 2021-11-04 2021-11-04 Telephone [facility] 1.2.030.152 [id number] Univers 00:00:00 00:00:00 Roshunda R DRAWER MAKER 350.1.13.10 ity of [facility] 4.2.7.2.686 [place] as MATERNAL [id number] [facility] & CHILD [address] [place] [address] 2021-10-30 2021-10-30 Outpatient Natalya FLOWER [facility] [id number] Univers 15:15:00 15:46:45 STEFANNDA shirin o [facility] [place] [facility] 2021-10-30 2021-10-30 [facility] 1.2.840.114 [id number] Univers 15:15:00 15:46:45 Rosjulionda R DRAWER MAKER 350.1.13.10 ity of Visit [facility] 4.2.7.2.686 [place] as MATERNAL [id number] [facility] & CHILD [address] [place] [address] 2021-10-30 2021-10-30 [facility] [id number] Univers 15:15:00 15:15:00 MIMI nagabarak o [facility] 2021-10-30 2021-10-30 Orders Doctor JOCE 1.2.840.114 [id number] Univers 00:00:00 00:00:00 Only Unassigned, MASSIEL 350.1.13.10 ity of [place] [facility] 4.2.7.2.686 [place] as [id number] [address] 2021-10-23 2021-10-23 [facility] 1.2 .840.114 [id number] Univers 13:00:00 13:26:19 Visit Radha Flowerfatou R DRAWER MAKER 350.1.13.10 ity of [facility] 4.2.7.2.686 [place] as MATERNAL [id number] [facility] & CHILD [address] [place] [address] 2021-10-23 2021-10-23 Outpatient Natalya FLOWER [facility] [id number] Univers 13:00:00 13:00:00 MIMI torres [facility] 2021-10-21 2021-10-21 Outpatient CHAITANYA PALOMO [facility] [id number] Univers 16:46:00 20:52:[address] [facility] 2021-10-21 2021-10-21 [facility] Princess Hayes [facility] 1.2.840.1 [id number] Univers 16:46:00 20:52:00 Encounter [place] 350.1.1 3.10 ity of Chaitanya Jacobo W[place] 4.2.7.2.686 [facility] [id number] [place] [id number] [place] 2021-10-21 2021-10-21 Telephone Ching [facility] [id number] Univers 00:00:00 00:00:00 Roshunda R DRAWER MAKER 350.1.13.10 ity of [facility] 4.2.7.2.686 [place] MATERNAL [id number] Med ical & CHILD [address] [place] [address] 2021-10-18 2021-10-18 Elevator Pilot Lab, [facility] 1.2.840. 114 [id number] Univers 07:45:00 08:22:40 Visit Mimi Flower R DRAWER MAKER 350.1.13.10 ity of [facility] 4.2.7.2.686 [place] as MATERNAL [id number] Med ical & CHILD [address] [place] [address] 2021-10-18 2021-10-18 Outpatient R [facility] [id number] Univers 07:45:00 07:45:[address] [facility] 2021-10-18 2021-10-18 Outpatient R CHING [facility] [id number] Univers 07:45:00 07:45:[address] ity o [address] [facility] 2021-10-16 2021-10-16 Outpatient R CHING [facility] [id number] Univers 12:45:00 14:03:[address] o [address] [facility] 2021-10-16 2021-10-16 [facility] 1.2.840.114 [id number] Univers 12:45:00 14:03:21 Rosjulionda R DRAWER MAKER 350.1.13.10 ity of Visit [facility] 4.2.7.2.686 [place] as MATERNAL [id number] Med ical & CHILD [address] [place] [address] 2021-09-26 2021-09-26 Telephone Flower [facility] [id number] Univers 00:00:00 00:00:00 Rosjulionda R DRAWER MAKER 350.1.13.10 ity of REGIONAL 4.2.7.2.686 [place] as MATERNAL [id number] [facility] & CHILD [address] [place] [address] 2021-09-25 2021-09-25 [facility] [id number] Univers 11:00:00 11:15:[address] o [address] [facility] 2021-09-25 2021-09-25 Routine [facility] 1.2.840.114 [id number] Univers 11:00:00 11:15:37 Rosjulionda R DRAWER MAKER 350.1.13.10 ity of Visit REGIONAL 4.2.7.2.686 [place] as MATERNAL [id number] [facility] & CHILD [address] [place] [address] 2021-09-24 2021-09-24 Abstract [facility] 1.2.840.114 [id number] Univers 00:00:00 00:00:00 Rosjulionda R DRAWER MAKER 350.1.13.10 ity of REGIONAL 4.2.7.2.686 [place] as MATERNAL [id number] [address] 2021-09-20 2021-09-20 Elevator [facility] 1.2 .840.114 [id number] Univers 10:45:00 12:00:00 Visit Yassine Gaspar DRAWER MAKER 350.1.13.10 ity of REGIONAL 4.2.7.2.686 [place] as MATERNAL [id number] [facility] & CHILD [address] [place] [address] 2021-09-20 2021-09-20 Outpatient P YASSINE GASPAR [facility] [id number] Univers 10:45:00 10:45:00 YASSINE GASPAR [facility] 2021-09-20 2021-09-20 Orders Doctor HOBSON 1.2.840.114 [id number] Univers 00:00:00 00:00:00 Only Unassigned, MASSIEL 350.1.13.10 ity of [place] [facility] 4.2.7.2.686 [place] as [id number] [address] 2021-08-27 2021-08-27 Orders Doctor JOCE 1.2.840.114 [id number] Univers 00:00:00 00:00:00 Only Unassigned, MASSIEL 350.1.13.10 ity of [place] [facility] 4.2.7.2.686 [place] as [id number] [address] 2021-08-26 2021-08-26 [facility] 1.2.840.114 [id number] Univers 14:00:00 14:30:00 Rosnda R DRAWER MAKER 350.1.13.10 ity of Visit [facility] 4.2.7.2.686 [place] as MATERNAL [id number] Med ical & CHILD [address] [place] [address] 2021-08-26 2021-08-26 Outpatient Natalya [facility] [id number] [facility] 14:00:00 14:00:00 ROSJULIONDA ity o [facility] 2021-08-26 2021-08-26 Outpatient Natalya [facility] [id number] [facility] 13:30:00 13:30:00 ROSNDA ity o [facility] 2021-08-26 2021-08-26 [facility] [id number] [facility] 13:30:00 13:30:00 RADHANDA ity o [facility] 2017-06-30 2017-06-30 Departed TERESSA ROGERS, [facility] [id number] 19:25:00 22:00:00 Emergency YUNG 61 [facility] Results Test Description Test Time Test Comments Results Result Comments Source POCT GLUCOSE (AUTOMATED) 2022-01-02 11:04:01 Test Item Value Reference Range Interpretation Comme nts POCT GLU (test code = 8261575001) 77 mg/dL 70-110 Lab Interpretation (test code = 28774-2) Normal [facility] with [id number] 06:12:56 Test Item Value Reference Range Interpretation Comments WBC (test code = See_Comment H [Automated 6690-2) message] The system which generated this result transmit leonardo reference range : 4.30 - 11.10 10*3/?L. The reference range was not used to interpret this result as normal/abnormal . RBC (test code = See_Comment L [Automated 789-8) message] The system which generated this result transmit leonardo reference range : 3.93 - 5.25 10*6/?L. The reference range was not used to interpret this result as normal/abnormal . HGB (test code = 7.0 g/dL 11.6-15 L 718-7) HCT (test code = 23.4 % 35.7-45.2 L 4544-3) MCV (test code = 69.0 fL 80.6-95.5 L 787-2) MCH (test code = 20.6 pg 25.9-32.8 L 785-6) MCHC (test code = 29.9 g/dL 31.6-35.1 L 786-4) RDW-SD (test code = 46.1 fL 39-49.9 88391-7) RDW-CV (test code = 19.1 % 12-15.5 H 788-0) PLT (test code = See_Comment [Automated 777-3) message] The system which generated this result transmit leonardo reference range : 166 - 358 10*3/ ?L. The reference range was not u sed to interpret th is result as normal/abnormal . MPV (test code = 10.3 fL 9.5-12.9 52200-5) NRBC/100 WBC (test See_Comment [Automat ed code = 2739853604) message] The system which generated this result transmit leonardo reference range : 0.0 - 10.0 /100 WBCs. The reference range was not used to interpret this result as normal/abnormal . NRBC x10^3 (test code See_Comment [Auto mated = 5614168737) message] The system which generated this result transmit leonardo reference range : 10*3/?L. The reference range was not used to interpret this result as normal/abnormal . GRAN MAT (NEUT) % 75.0 % (test code = 770-8) IMM GRAN % (test code 1.30 % = 9675429754) LYMPH % (test code = 17.5 % 736-9) MONO % (test code = 5.7 % 5905-5) EOS % (test code = 0.3 % 713-8) BASO % (test code = 0.2 % 706-2) GRAN MAT x10^3(ANC) 18.57 10*3/uL 1.88-7.09 H (test code = 8786666717) IMM GRAN x10^3 (test 0.32 10*3/uL 0-0.06 H code = 6394489181) LYMPH x10^3 (test code 4.33 10*3/uL 1.32-3.29 H = 731-0) MONO x10^3 (test code 1.40 10*3/uL 0.33-0.92 H = 742-7) EOS x10^3 (test code = 0.08 10*3/uL 0.03-0.39 711-2) BASO x10^3 (test code 0.05 10*3/uL 0.01-0.07 = 704-7) BANDS (test code = Increased A 6546314555) Lab Interpretation Abnormal (test code = 82688-1) [facility] I[facility]UNE [id number] 13:50:00 Test Item Value Reference Range Interpretation Comments RHIG CANDIDATE? No- see comment Patient i s not a (test code = candidate for R hIg- 5055) Patient is Rh Positive.Perfor med at [facility] Laboratory Services - [facility] Blood [address] [place], [place] [id number] Free: [phone] A No. [id number] [facility] [id number] 10:47:16 Test Item Value Reference Range Interpretation Comments VENOUS BASE EXCESS, mEq/L CORD (test code = 6520216549) VENOUS PH, CORD (test 7.25-7.45 code = 0276005628) VENOUS PC02, CORD See_Comment [Automate d message] The (test code = system which ge nerated 5876142421) this result tra nsmitted reference range : 27 - 49 mmHg. The refer ence range was not used to interpret this result as normal/abnormal . VENOUS PO2, CORD (test See_Comment [Aut omated message] The code = 3357895714) system wh ich generated this result tra nsmitted reference range : 17 - 41 mmHg. The refer ence range was not used to interpret this result as normal/abnormal . VENOUS BICARBONATE, See_Comment [Automa leonardo message] The CORD (test code = system [facility] generated 6819525638) this result tra nsmitted reference range : 12 - 29 mEq/L. The refe rence range was not used to interpret this result as normal/abnormal . [facility] [id number] 10:46:16 Test Item Value Reference Range Interpretation Comments BASE EXCESS, CORD (test mEq/L code = 0164245333) AC PH, CORD (BEAKER) 7.18-7.38 L (test code = 4446764461) PC02, CORD (test code = See_Comment [Au tomated message] 3033532694) The system [facility] generated this result transmitted ref erence range: 32 - 66 mmHg. The reference r lizandro was not used to interpret this result as normal/abnor mal. PO2, CORD (test code = See_Comment [Aut omated message] 9954023636) The system [facility] generated this result transmitted ref erence range: 10 - 30 mmHg. The reference r lizandro was not used to interpret this result as normal/abnor mal. BICARBONATE, CORD (test See_Comment [Au tomated message] code = 0538758493) The syste m which generated this result transmitted ref erence range: 17 - 27 mEq/L. The reference r lizandro was not used to interpret this result as normal/abnor mal. Lab Interpretation (test Abnormal code = 52676-7) [facility] GLUCOSE (AUTOMATED)2022-01-01 09:03:23 Test Item Value Reference Range Interpretation Comments POCT GLU (test code = 0539494509) 123 mg/dL 70-110 H Lab Interpretation (test code = Abnormal 05918-8) [facility] GLUCOSE (AUTOMATED)2022-01-01 07:02:45 Test Item Value Reference Range Interpretation Comments POCT GLU (test code = 3478216904) 124 mg/dL 70-110 H Lab Interpretation (test code = Abnormal 67444-0) [facility] GLUCOSE (AUTOMATED)2022-01-01 04:51:25 Test Item Value Reference Range Interpretation Comments POCT GLU (test code = 9090810227) 128 mg/dL 70-110 H Lab Interpretation (test code = Abnormal 95876-5) [facility] GLUCOSE (AUTOMATED)2022-01-01 02:58:36 Test Item Value Reference Range Interpretation Comments POCT GLU (test code = 5018875262) 120 mg/dL 70-110 H Lab Interpretation (test code = Abnormal 83830-0) [facility] GLUCOSE (AUTOMATED)2021-12-31 23:16:04 Test Item Value Reference Range Interpretation Comments POCT GLU (test code = 2692756014) 102 mg/dL 70-110 Lab Interpretation (test code = Normal 81466-4) [facility] GLUCOSE (AUTOMATED)2021-12-31 20:33:59 Test Item Value Reference Range Interpretation Comments POCT GLU (test code = 5214042928) 110 mg/dL 70-110 Lab Interpretation (test code = Normal 29090-8) [facility] GLUCOSE (AUTOMATED)2021-12-31 20:32:25 Test Item Value Reference Range Interpretation Comments POCT GLU (test code = 4407793953) 100 mg/dL 70-110 Lab Interpretation (test code = Normal 97056-2) [facility] ONLY - SYPHILIS [id number] 14:35:39 Test Item Value Reference Range Interpretation Comments Syphilis IgG/IgM (test Non-reactive Non-reactive code = 30568-7) OSMANY (test code = OSMANY) Non-reactive - No serologic evidence of T. pallidum infection. Cannot exclude incubating or early syphilis. Submit a second specimen in 2-4 weeks if syphilis is clinically suspected. Equivocal - Further testing to follow. Reactive - Further testing to follow. Lab Interpretation (test Normal code = 03717-7) [facility]HI [facility]/2 AG-AB WITH [id number] 12:18:07 Test Item Value Reference Range Interpretation Comments HIV Negative Negative Semi-quantitative (test code = 28801-0) OSMANY (test code = Non-reactive for HIV-1 OSMANY) antigen and HIV-1/HIV-2 antibodies. ?No laboratory evidence of HIV infection. ?Repeat in 2-4 weeks if acute HIV infection is suspected. [facility] HospitalHepatitis B Surface [id number] 11:22:17 Test Item Value Reference Range Interpretation Comments HBsAg Semi-Quantitative (test code = Negative Negative 5195-3) [facility] GLUCOSE (AUTOMATED)2021-12-31 11:21:22 Test Item Value Reference Range Interpretation Comments POCT GLU (test code = 5389752620) 116 mg/dL 70-110 H Lab Interpretation (test code = Abnormal 53486-8) [facility] GLUCOSE (AUTOMATED)2021-12-31 07:52:22 Test Item Value Reference Range Interpretation Comments POCT GLU (test code = 3213236705) 116 mg/dL 70-110 H Lab Interpretation (test code = Abnormal 55039-8) [facility] HospitalType and Screen - ONCE [id number] 07:29:20 Test Item Value Reference Range Interpretation Comments ABO & RH (test code O POSITIVE Performe d at [facility] = 20) Laboratory Serv [facility] Blood Bank3 [address] [facility] s [address]Vavd Free: [phone] A No. [id number] IAT (test code = Negative Performed a t [facility] 1185) Laboratory Serv [facility] Blood Bank3 [facility] s [address]Bicq Free: [phone] A No. [id number] [facility] HospitalCBC with [id number] 06:29:09 Test Item Value Reference Range Interpretation Comments WBC (test code = See_Comment H [Automated 1590-2) message] The sy stem which generated this result transmitted reference range : 4.30 - 11.10 10*3/?L. The reference range was not used to interpret this result as normal/abnormal . RBC (test code = See_Comment [Automated 099-8) message] The sy stem which generated this result transmitted reference range : 3.93 - 5.25 10*6/?L. The reference range was not used to interpret this result as normal/abnormal . HGB (test code = 8.3 g/dL 11.6-15 L 718-7) HCT (test code = 27.2 % 35.7-45.2 L 4544-3) MCV (test code = 68.3 fL 80.6-95.5 L 787-2) MCH (test code = 20.9 pg 25.9-32.8 L 785-6) MCHC (test code = 30.5 g/dL 31.6-35.1 L 786-4) RDW-SD (test code = 44.7 fL 39-49.9 12724-7) RDW-CV (test code = 18.6 % 12-15.5 H 788-0) PLT (test code = See_Comment [Automated 777-3) message] The sy stem which generated this result transmitted reference range : 166 - 358 10*3/ ?L. The reference r lizandro was not used to interpret this result as normal/abnormal . MPV (test code = 10.4 fL 9.5-12.9 31647-6) NRBC/100 WBC (test See_Comment [Automat ed code = 3893684811) message] The system which generated this result transmitted reference range : 0.0 - 10.0 /100 WBCs. The refer ence range was not u sed to interpret th is result as normal/abnormal . NRBC x10^3 (test code See_Comment [Auto mated = 8206530731) message] The s ystem which generated this result transmitted reference range : 10*3/?L. The reference range was not used to interpret this result as normal/abnormal . GRAN MAT (NEUT) % 62.0 % (test code = 770-8) IMM GRAN % (test code 1.50 % = 3906070711) LYMPH % (test code = 29.4 % 736-9) MONO % (test code = 6.4 % 5905-5) EOS % (test code = 0.4 % 713-8) BASO % (test code = 0.3 % 706-2) GRAN MAT x10^3(ANC) 7.03 10*3/uL 1.88-7.09 (test code = 9129278302) IMM GRAN x10^3 (test 0.17 10*3/uL 0-0.06 H code = 2312736866) LYMPH x10^3 (test code 3.33 10*3/uL 1.32-3.29 H = 731-0) MONO x10^3 (test code 0.72 10*3/uL 0.33-0.92 = 742-7) EOS x10^3 (test code = 0.04 10*3/uL 0.03-0.39 711-2) BASO x10^3 (test code 0.03 10*3/uL 0.01-0.07 = 704-7) Lab Interpretation Abnormal (test code = 88931-4) [facility] GLUCOSE (AUTOMATED)2021-12-31 05:13:18 Test Item Value Reference Range Interpretation Comments POCT GLU (test code = 8664825458) 191 mg/dL 70-110 H Lab Interpretation (test code = Abnormal 55760-9) [facility] URINALYSIS W SPECIFIC [id number] 20:35:00 Test Item Value Reference Range Interpretation Comments POCT U SP GRAV (test code = . 1.005-1.025 3255) POCT PH U (test code = 3254) . 5-8 POCT U LEUK EST (test code = ++ Negative - Negative 3263) POCT U NIT (test code = 3262) . Negative - Negative POCT U PROT (test code = 3259) about 30 Negative - Negative POCT U GLU (test code = 3256) normal Negative - Negative POCT U KETONE (test code = 3258) . Negative - Negative POCT U UROBILI (test code = . 0.2-1 3260) POCT U BILI (test code = 3261) . Negative - Negative POCT U BLD (test code = 3257) . Negative - Negative POCT U COLOR (test code = 3266) danish POCT U APPEAR (test code = 3267) hazy [facility] URINALYSIS W SPECIFIC [id number] 20:35:00 Test Item Value Reference Range Interpretation Comments POCT U SP GRAV (test code = . 1.005-1.025 3255) POCT PH U (test code = 3254) . 5-8 POCT U LEUK EST (test code = ++ Negative - Negative 3263) POCT U NIT (test code = 3262) . Negative - Negative POCT U PROT (test code = 3259) about 30 Negative - Negative POCT U GLU (test code = 3256) normal Negative - Negative POCT U KETONE (test code = 3258) . Negative - Negative POCT U UROBILI (test code = . 0.2-1 3260) POCT U BILI (test code = 3261) . Negative - Negative POCT U BLD (test code = 3257) . Negative - Negative POCT U COLOR (test code = 3266) danish POCT U APPEAR (test code = 3267) [facility] URINALYSIS W SPECIFIC [id number] 20:35:00 Test Item Value Reference Range Interpretation Comments POCT U SP GRAV (test code = . 1.005-1.025 3255) POCT PH U (test code = 3254) . 5-8 POCT U LEUK EST (test code = ++ Negative - Negative 3263) POCT U NIT (test code = 3262) . Negative - Negative POCT U PROT (test code = 3259) about 30 Negative - Negative POCT U GLU (test code = 3256) normal Negative - Negative POCT U KETONE (test code = 3258) . Negative - Negative POCT U UROBILI (test code = . 0.2-1 3260) POCT U BILI (test code = 3261) . Negative - Negative POCT U BLD (test code = 3257) . Negative - Negative POCT U COLOR (test code = 3266) danish POCT U APPEAR (test code = 3267) [facility] URINALYSIS W SPECIFIC [id number] 20:35:00 Test Item Value Reference Range Interpretation Comments POCT U SP GRAV (test code = . 1.005-1.025 3255) POCT PH U (test code = 3254) . 5-8 POCT U LEUK EST (test code = ++ Negative - Negative 3263) POCT U NIT (test code = 3262) . Negative - Negative POCT U PROT (test code = 3259) about 30 Negative - Negative POCT U GLU (test code = 3256) normal Negative - Negative POCT U KETONE (test code = 3258) . Negative - Negative POCT U UROBILI (test code = . 0.2-1 3260) POCT U BILI (test code = 3261) . Negative - Negative POCT U BLD (test code = 3257) . Negative - Negative POCT U COLOR (test code = 3266) danish POCT U APPEAR (test code = 3267) [facility] URINALYSIS W SPECIFIC [id number] 20:35:00 Test Item Value Reference Range Interpretation Comments POCT U SP GRAV (test code = . 1.005-1.025 3255) POCT PH U (test code = 3254) . 5-8 POCT U LEUK EST (test code = ++ Negative - Negative 3263) POCT U NIT (test code = 3262) . Negative - Negative POCT U PROT (test code = 3259) about 30 Negative - Negative POCT U GLU (test code = 3256) normal Negative - Negative POCT U KETONE (test code = 3258) . Negative - Negative POCT U UROBILI (test code = . 0.2-1 3260) POCT U BILI (test code = 3261) . Negative - Negative POCT U BLD (test code = 3257) . Negative - Negative POCT U COLOR (test code = 3266) danish POCT U APPEAR (test code = 3267) [facility] URINALYSIS W SPECIFIC [id number] 20:35:00 Test Item Value Reference Range Interpretation Comments POCT U SP GRAV (test code = . 1.005-1.025 3255) POCT PH U (test code = 3254) . 5-8 POCT U LEUK EST (test code = ++ Negative - Negative 3263) POCT U NIT (test code = 3262) . Negative - Negative POCT U PROT (test code = 3259) about 30 Negative - Negative POCT U GLU (test code = 3256) normal Negative - Negative POCT U KETONE (test code = 3258) . Negative - Negative POCT U UROBILI (test code = . 0.2-1 3260) POCT U BILI (test code = 3261) . Negative - Negative POCT U BLD (test code = 3257) . Negative - Negative POCT U COLOR (test code = 3266) danish POCT U APPEAR (test code = 3267) [facility] [id number] 10:22:58SPECIMEN NUMBER: [id number] CULTURE, URINE SPECIMEN NUMBER: [id number] SPECIMEN COMMENT: URINE SOURCE:URINE REPORT STATUS: FINAL ISOLATE NUMBER 1: IDENTIFICATION: 08/14/2021 50-100,000 CFU/ML BETA-STREPTOCOCCUS GROUP B ADDITIONAL OBSERVATIONS: PENICILLIN AND AMPICILLIN ARE DRUGS OF CHOICE FOR TREATMENTOF B-HEMOLYTIC STREPTOCOCCAL INFECTIONS. SUSCEPTIBILITY TESTING OF PENICILLIN AND OTHER B- LACTAMS APPROVED BY THE [place] [employer]OD AND DRUG [employer]RATION FOR TREATMENT OF B- HEMOLYTIC STREPTOCOCCAL INFECTIONS NEED NOT BE PERFORMED ROUTINELY. ADDITIONAL OBSERVATIONS: 08/14/2021 50-100,000 CFU/ML UROGENITAL SUSIE PRESENT NO COMMON PATHOGENSMATERNAL AFP FOR NTD [id number] 15:16:44 Test Item Value Reference Range Interpretation Comments INTERPRETATION (test SCREEN NEGATIVE code = 258887) Neural tube defect 1:1196 risk (test code = 11445) Neural tube defect (NOTE) --- NORM AL - NOT interpretation (test AT INCR EASED RISK code = 07233) --- The AFP re sults indicate a risk for neural tube def ect less than or eq ual to that of the general populat ion. (A normal resul t is defined as an Adjusted AFP M. O.M. of less than 2. 50 for non-diabeti cs and less than 2 .0 for diabetics). The gestation age w as based upon Ultrasound Examination. No te that this is a screening test only. Normal results are not a guarantee of a normal . DATE OF (test 2000 code = 2660) MATERNAL WEIGHT (test 239 LBS code = 2657) INITIAL/REPEAT (test INITIAL code = 579875) FAMILY HISTORY OF NTD NO (test code = 324313) INSULIN DEP. DIABETIC NO (test code = 2659) RACE (test code = 2658) SMOKER? (test code = NO 937967) NUMBER OF GESTATIONS 1 (test code = 08383) GESTATIONAL AGE (test 20.0 WEEKS code = 2656) DETERMINED BY: (test US code = 2654) DATE OF SONOGRAM 06/07/2021 (test code = 80488) GESTATIONAL AGE AT 10.6 WEEKS SONO (test code = 2653) ADJUST AFP M.O.M. 1.465 M.O.M. (test code = 2661) AFP (test 65.0 NG/ML UNLESS O THERWISE code = 59203) INDICATED, ALL TESTING PERFORM ED ATCLINICAL PATHOLOGY LABORATORIES, [facility]. [address] [address] 4 SOLAR PHOTOVOLTAIC SYSTEMS ENGINEER: Troy ZURITAIA NUMBER [id number] CAP ACCREDITATION N O. [id number] CULTURE, [id number] 09:06:22SPECIMEN NUMBER: [id number] CULTURE, URINE SPECIMEN NUMBER: [id number] SPECIMEN COMMENT: URINE SOURCE: URINE REPORT STATUS: FINAL FINAL REPORT: 07/13/2021 >100,000 CFU/ML UROGENITAL SUSIE PRESENT NO C OMMON PATHOGENSDRUG ABUSE SCREEN 10 REFLEX [id number] 05:43:38 Test Item Value Reference Range Interpretation Comments AMPHETAMINES (test NEGATIVE NEGATIVE code = 3201) BARBITURATES (test NEGATIVE NEGATIVE code = 3202) BENZODIAZEPINES (test NEGATIVE NEGATIVE code = 3203) CANNABINOIDS (test NEGATIVE NEGATIVE code = 3204) COCAINE METABOLITE NEGATIVE NEGATIVE (test code = 3205) OPIATES (test code = NEGATIVE NEGATIVE 3209) OXYCODONE (test code NEGATIVE NEGATIVE = 50088) PHENCYCLIDINE (test NEGATIVE NEGATIVE code = 3210) METHADONE (test code NEGATIVE NEGATIVE = 3207) BUPRENORPHINE (test NEGATIVE NEGATIVE code = 96720) SOURCE (test code = URINE SEE BELOW FOR 134058) THRESHOLDS AND IMPORTANT METHOD NOTES * ANALYTE SCREENING CUTOF F CONFIRMATORY CUTOFF AMPHETAMINES 50 0 NG/ML 100 NG/MLBARBIT URATES 200 NG/ML 100 NG/MLBENZODIAZE PINES 200 NG/ML 100 NG/MLCANNABINOI DS (THC) 20 NG/ML 15 NG/ MLCOCAINE METABOLITES 150 NG/ML 100 NG/MLOPIATE MET ABOLITES 300 NG/ML 100 NG/MLOXYCODONE 100 NG/ML 100 NG/MLPHENCY CLIDINE (PCP) 25 NG/ML 25 NG/MLMETHADONE 300 NG/ML 100 NG/MLBUPREN ORPHINE 5 NG/ML 5 NG/ML NOTE: Screening metho dology is qualitative Enz yme Immunoassay.The screening method may be l ess sensitive for c ertain medicationsincl uding clonazepam and lorazepam in the benzodia zepine assay andtramad ol or fentanyl in the opiate assay, amongst others. Patientcomplian ce, hydration statu s, timing and dose of med ications, drugabsorption and specimen qualit y may affect screenin g assay.For clini yan discrepancies, consider directed testin g for specificcompoun ds or contact the lab oratory within specimen stability toforward for confirmatory te sting. This test is sp ecified for medicalpurp oses only. It is not valid for forensic use. U NLESS OTHERWISE INDIC ATED, ALL TESTING PERFORM ED ATCLINICAL PATH OLOGY LABORATORIES, [facility]. [address] [place] [address] LABORATORY DIRE CTOR: Robert ZURITA. CLIA NUMBER [id number] CAP ACCREDITATION N O. [id number] GLUCOSE 1 HR POST 50 [id number] 04:51:49 Test Item Value Reference Range Interpretation Comments GLUCOSE 1 HR POST 50 GM (test code = 87 MG/DL <140 2005) CULTURE, [id number] 08:46:16SPECIMEN NUMBER: [id number] CULTURE, URINE SPECIMEN NUMBER: [id number] SPECIMEN COMMENT: URINE SOURCE: URINE REPORT STATUS: FINAL FINAL REPORT: 06/09/2021 >100,000 CFU/ML UROGENITAL SUSIE PRESENT NO C OMMON PATHOGENSDRUG ABUSE SCREEN 10 REFLEX [id number] 12:01:40 Test Item Value Reference Interpretation Comments Range COMMENTS (test code TEST NOT Unable t o perform = 8691) PERFORMED testing due to a laboratory erro r.Charges adjusted as natalie licable. Note: Validity testing suggests an alt ered, adulterated or compromised spe cimen. Analytic detect ion may be affected. Consideration s hould be given to repeat analysis on a newly acqu ired specimen or cli nical correlation and medication revi ew. AMPHETAMINES (test TEST NOT NEGATIVE code = 3201) PERFORMED BARBITURATES (test TEST NOT NEGATIVE code = 3202) PERFORMED BENZODIAZEPINES TEST NOT NEGATIVE (test code = 3203) PERFORMED CANNABINOIDS (test TEST NOT NEGATIVE code = 3204) PERFORMED COCAINE METABOLITE TEST NOT NEGATIVE (test code = 3205) PERFORMED OPIATES (test code = TEST NOT NEGATIVE 3209) PERFORMED OXYCODONE (test code TEST NOT NEGATIVE = 20801) PERFORMED PHENCYCLIDINE (test TEST NOT NEGATIVE code = 3210) PERFORMED METHADONE (test code TEST NOT NEGATIVE = 3207) PERFORMED BUPRENORPHINE (test TEST NOT NEGATIVE code = 94431) PERFORMED SOURCE (test code = TEST NOT SEE BELOW FOR 381819) PERFORMED THRESHOLDS AND IMPORTANT METHOD NOTES * ANALYTE SCREENING CUTOF F CONFIRMATORY CUTOFF ___AMPHETAMINES 500 NG/ML 100 NG/MLBARBITURAT ES 200 NG/ML 100 NG/MLBENZODIAZE PINES 200 NG/ML 100 NG/MLCANNABINOI DS (THC) 20 NG/ML 15 NG/ MLCOCAINE METABOLITES 150 NG/ML 100 NG/MLOPIATE METABOLITES 300 NG/ML 100 NG/MLOXYCOD ONE 100 NG/ML 100 NG/MLPHENCYCLID INE (PCP) 25 NG/ML 25 NG/MLMETHADONE 300 NG/ML 100 NG/MLBUPREN ORPHINE 5 NG/ML 5 NG/ML NOTE: Screening metho dology is qualitative Enz yme Immunoassay.The screening metho d may be less sensitive for certain medicationsincl uding clonazepam and lorazepam in the benzodia zepine assay andtramad ol or fentanyl in the opiate assay, amongst others. Patientcomplian ce, hydration statu s, timing and dose of med ications, drugabsorption and specimen qualit y may affect screenin g assay.For clini yan discrepancies, consider directed testin g for specificcompoun ds or contact the lab oratory within specimen stability tofor navarro for confirmatory te sting. This test is sp ecified for medicalpurp oses only. It is not valid for forensic us e. UNLESS OTHERWISE INDIC ATED, ALL TESTING PERFORM ED ATCLINICAL PATH OLOGY LABORATORIES, [place] [address] [facility] [place] [address] LABORATORY DIRE CTOR: YAYA BARAJAS M.D. CLIA NUMBER [id number] [place] [id number] HEMOGLOBIN [id number] 10:51:35 Test Item Value Reference Range Interpretation [...] % NONE DETECTED VARIANT (test code = 44979) PATHOLOGIST'S (NOTE) NO ABNORMAL INTERPRETATION (test HEMOGLO BINS code = 2577) IDENTIFIED. IF NOT ALREADY PERFORM ED, TESTINGFOR SERU M IRON, TIBC, AND SERAFIN TIN IS SUGGESTED. IF I DOV DEFICIENCYEXIST S AND IF HEMOGLOBIN D OES NOT NORMALIZE AFTER IRON STORES AREREPLE NISHED, A REPEAT HEMOGL OBIN ELECTROPHORESIS IS SUGGESTED. IRONDEFICIENCY CAN OBSCURE THE IJEOMA GNOSIS OF ALPHA-THALAS SEMIA OR CAN CAUSEA S PURIOUS DECREASE IN HbA 2, OBSCURING THE DIAGNOSIS OFBETA-THALASSE KATHLEEN. SAKSHI HOOVER M.D. CT/NG, NAAT, [id number] 18:48:48 Test Item Value Reference Range Interpretation Comments GONORRHEA, NAAT NEGATIVE NEGATIVE IMPORTA NT NOTICE: SEE (test code = [place] [address]) [email or web address] of Health and Human Services/Raghu The EtailerssUrineKit Note: Assay methodology is nucleic acid amplification b y music industry internship m ediated amplification ( TMA) utilizing the A ptima Combo 2 Assay. CHLAMYDIA, NAAT NEGATIVE NEGATIVE IMPORTA NT NOTICE: SEE (test code = [place] [address]) [email or web address].Department of Health and Human Services/Raghu DodonationobasUrineKit Note: Assay methodology is nucleic acid amplification b y music industry internship m ediated amplification ( TMA) utilizing the A ptima Combo 2 Assay. VARICELLA ZOSTER [id number] 16:11:55 Test Item Value Reference Range Interpretation Comments VARICELLA ZOSTER IgG 177 INDEX SEE BELOW INTERP RETATION VZV IgG (test code = 84170) NEGATIVE . . . . . . . . . . . . INDEX < 135 EQUIVOCAL. . . . . . . . . . . . INDEX 1 35-164 NOTE: CONSIDER RETESTING IN A CLINICALLY SUITABLE PERIOD OF TIME, NO SOONER THAN 1-2 WEEKS. POSITIVE . . . . . . . . . . . . INDEX > =165 OBSTETRIC PANEL + [id number] 03:58:49 Test Item Value Reference Range Interpretation [...] 1036) NUCLEATED RBCS 0.0 /100 WBC'S See_Comment [Automated message] (test code = 1065) The syste [...] RBCS 0.00 K/UL 0.00-0.11 (test code = 18815) BLOOD TYPE AND RH O POSITIVE A HISTORI YAN RECORD (test code = 3901) CHECK FOR [...] STUDIES. RUBELLA ANTIBODY 31 IU/ML SEE BELOW INTERPRETA TION SCREEN (test code = RUBELLA IgG 4600) NON-REACTIVE/NO N-IMM UNE . . . . . . . IU/ML <10 REACTIVE/IMMUNE . . . . . . . . . . . IU/ML >=10 RUBELLA IgG INTERP REACTIVE REACTIVE (test code = 26921) HEPATITIS B SURF AG NON-REACTIVE NON-REACTIVE (test code = 2739) RPR (test code = NON-REACTIVE NON-REACTIVE 41161) RPR TITER (test NOT INDIC. NOT INDIC. code = 3500) TITER HIV 1/2 4TH GEN, NON-REACTIVE NON-REACTIVE RFLX CONF (test code = 3514) HEPATITIS C REFLEX [id number] 03:58:49 Test Item Value Reference Range Interpretation Comments HEPATITIS C ANTIBODY (test code NON-REACTIVE NON-REACTIVE = 4675) [id number] 03:24:31 Test Item Value Reference Range Interpretation Comments RPR RESULT (test code = NON-REACTIVE NON-REACTIVE 3501) RPR TITER (test code = 3500) NOT INDIC. TITER NOT INDIC. LOWER LEG LEFT [facility] [address] [address] PatientName: ELISEO PEREZ MR #: [id number] : 2000 Age/Sex: 16/F Req #: [id number] Adm Physician: Ordered by: MEGAN JOYNER NP Report #: [id number] Location: ER Room/Bed: Procedure: [id number] DX/LOWER LEG LEFT Exam Date: 06/30/17 Exam Time: 1950 REPORT STATUS: Signed EXAMINATION: ANKLE 3+ VIEWS LEFT, FOOT LEFT COMPLETE, LOWER LEG LEFT 06/30/2017 7:37 PM COMPARISON: None INDICATION: Fall, rule out fracture DISCUSSION: 3 views of the left ankle (AP, lateral, and oblique) 2 views ofthe left lower leg (AP and lateral) 3 [...] COPY TO: MEGAN JOYNER NPFOOT LEFT COMPLETE [address] [address] Patient Name: ELISEO PREEZ MR #: [id number] : 2000 Age/Sex: 16/F Req #: [id number] Adm Physician: Ordered by: MEGAN JOYNER MILLINERY DESIGNER Report #: [id number] Location: ER Room/Bed: Procedure: [id number] DX/FOOT LEFT COMPLETE Exam Date: 06/30/17 Exam [...] TO: MEGAN JOYNER NPANKLE 3+ VIEWS LEFT [address] [place] [address] PatientName: ELISEO PEREZ MR #: [id number] : 2000 Age/Sex: 16/F Req #: [id number] [facility] Physician: Ordered by: MEGAN JOYNER MILLINERY DESIGNER Report #: [id number] Location: ER Room/Bed: Procedure: [id number] DX/ANKLE 3+ VIEWS LEFT Exam Date: 06/30/17 [...]
[2022-01-10] MEDS ORDERED: KETOROLAC 30 MG/ML INJ ONE (18:07)
[2022-01-10 18:15] LABS: Absolute Lymphocytes (CBC) 1.4 K/uL (0.7-4.9); Hematocrit 30.7 % (36.0-45.0); Lymphocytes % 6.5 % (15.3-44.8); MCV 66.3 fL (80-100); MPV 7.3 fL (7.6-11.3); RBC Red Blood Cell Count 4.63 M/uL (3.86-4.86)
[2022-01-10 18:18] LABS: Protime INR 1.14
[2022-01-10 18:25] LABS: Potassium 3.3 mmol/L (3.5-5.1)
[2022-01-10 18:26] LABS: Albumin 2.6 g/dL (3.4-5.0); Bilirubin Total 0.3 mg/dL (0.2-1.0); Protein, Total 7.7 g/dL (6.4-8.2)
[2022-01-10] MEDS ORDERED: NA CHLORIDE 0.9% 100 ML IV ONE (18:29)
[2022-01-10] MEDS ORDERED: AMPICILLIN/SULBACTAM 3GM/VIAL ONE (18:29)
[2022-01-10 18:44] LABS: Anisocytosis 1+; Blood Morphology Comment NOTED (NOT SEEN); Platelet Estimate INCR; Platelets, Giant PRESENT; Toxic Granulation 1+
[2022-01-10 18:45] LABS: Hypochromasia 1+
--- NOTE | 2022-01-10 19:01 | EDPHYS ---
Physician Documentation [facility] Name: Jessica Tavares Age: 21 yrs Sex: Female : 2000 Arrival Date: 01/10/2022 Time: 17:29 Bed 4 Private MD: ED Physician Joey Gilbert HPI: 01/10 17:30 This 21 yrs old Female presents to ER via EMS with complaints of Fever, Post jmm Problem. 17:30 The patient reports fever, not measured (subjective). Onset: The symptoms/episode jmm began/occurred gradually, today. Modifying factors: there are no obvious modifying factors. Associated signs and symptoms: Pertinent positives: chills. This is a 21-year-old female with history of anemia, gestational diabetes, that presents emerged department with complaints of right breast pain and fever beginning last night. . 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 - Social history:: Smoking status: Patient denies any tobacco usage or history of. ROS: 17:30 Constitutional: Positive for body aches, chills, fever. jmm 17:30 Skin: Positive for erythema. 17:30 All other systems are negative. Exam: 17:30 Constitutional: This is a well developed, well nourished patient who is awake, alert, jmm and in no acute distress. Head/Face: atraumatic. Eyes: EOMI, no conjunctival erythema appreciated ENT: Moist Mucus Membranes Neck: Trachea midline, Supple 17:30 Cardiovascular: Regular rate and rhythm. No edema appreciated Respiratory: Normal respirations, no respiratory distress appreciated Abdomen/GI: Non distended Back: Normal ROM 17:30 Chest/axilla: Breasts: swelling, that is moderate, of the right breast. 17:30 Skin: erythema noted to the right breast. 17:30 Neuro: Orientation: is normal, Mentation: is normal, Memory: is normal. 17:30 Psych: Behavior/mood is pleasant, cooperative. Vital Signs: 17:31 BP 125 / 75; Pulse 89; Resp 20; Temp 99.1(O); Pulse Ox 100% on R/A; Weight 113.4 kg; vg1 Height 5 ft. 0 in. (152.40 cm); Pain 8/10; 17:54 BP 125 / 75; Pulse 89; Resp 20; Temp 99.1; Pulse Ox 100% ; Weight 113.4 kg; Height 5 ll1 ft. 0 in. (152.40 cm); Pain 8/10; 18:49 BP 119 / 53; Pulse 89; Resp 17; Temp 99.3; Pulse Ox 96% on R/A; ll1 19:50 BP 106 / 60; Pulse 87; Resp 18 S; Pulse Ox 100% on R/A; ha1 17:54 Body Mass Index 48.82 (113.40 kg, 152.40 cm) ll1 MDM: 17:30 Patient medically screened. kb 18:55 Data reviewed: vital signs, nurses notes. Counseling: I had a detailed discussion with valerio the patient and/or guardian regarding: the historical points, exam findings, and any diagnostic results supporting the discharge/admit diagnosis, lab results, the need for outpatient follow up, the need for further work-up and treatment in the hospital. ED course: I discussed the patient with Halle Silva whom accepted the patient to Dr. Alvarez's service. I discussed the patient with Dr. Kate whom will consult on admission. . 01/10 17:33 Order name: Blood Culture Adult (2) [facility] 01/10 17:33 Order name: CBC with Diff; Complete Time: 18:50 [facility] 01/10 17:33 Order name: CMP; Complete Time: 18:33 [facility] 01/10 17:33 Order name: Lactate; Complete Time: 18:50 [facility] 01/10 17:33 Order name: Protime (+inr); Complete Time: 18:22 [facility] 01/10 17:33 Order name: Ptt, Activated; Complete Time: 18:22 [facility] 01/10 17:33 Order name: Accucheck; Complete Time: 17:55 [facility] 01/10 18:17 Order name: Glucose, Ancillary Testing; Complete Time: 18:22 [facility] 01/10 18:33 Order name: US Extrmty Nonvasular Limited [facility] 01/10 18:45 Order name: Manual Differential; Complete Time: 18:50 [facility] 01/10 18:50 Order name: SARS RAPID; Complete Time: 19:37 [facility] 01/10 19:53 Order name: US; Complete Time: 19:54 [facility] 01/10 17:33 Order name: Cardiac monitoring; Complete Time: 17:55 [facility] 01/10 17:33 Order name: EKG - Nurse/Tech; Complete Time: 17:55 [facility] 01/10 17:33 Order name: IV Saline Lock - Large Bore; Complete Time: 17:55 [facility] 01/10 17:33 Order name: Labs collected and sent; Complete Time: 17:55 [facility] 01/10 17:33 Order name: O2 Per Protocol; Complete Time: 17:38 [facility] 01/10 17:33 Order name: O2 Sat Monitoring; Complete Time: 17:38 [facility] 01/10 17:33 Order name: Vital Signs; Complete Time: 17:55 [facility] Administered Medications: 18:10 Drug: Ketorolac 30 mg Route: IVP; Site: left hand; [facility] 18:27 Follow up: Response: No adverse reaction [facility] 18:43 Drug: Unasyn (ampicillin-sulbactam) 3 grams Route: IVPB; Infused Over: 30 mins; Site: [facility] left hand; Disposition Summary: 01/10/22 19:00 Hospitalization Ordered Hospitalization Status: Observation [facility] Provider: Valdez Alvarez Location: [facility] Condition: Stable [facility] Problem: new [facility] Symptoms: are unchanged [facility] Bed/Room Type: Standard [facility] Room Assignment: [facility]-(01/10/22 19:45) Diagnosis - Nonpurulent mastitis associated with [facility] Discharge Instructions: - Discharge Summary Sheet ll1 Forms: - Medication Reconciliation Form [facility] - SBAR form ll1 Addendum: 01/14/2022 04:12 Co-signature as Attending Physician, Joey Gilbert MD I agree with the assessment and c govea plan of care. Signatures: Dispatcher [employer] EDMaria Fernanda Avalos FNP-C FNP-Gillian Handy RN RN mw Anderson, Corey, MD MD cha Mickail, Joel, PA PA [facility] Rulsan, Joann, RN RN vg1 Jovita Nguyen RN RN ll1 Lupe Silva PA-C PA-C sb4 Corrections: (The following items were deleted from the chart) 01/10 19:45 19:00 valerio mccloud
--- NOTE | 2022-01-10 19:01 | ER ---
Nurse's Notes [facility] Name: Jessica Tavares Age: 21 yrs Sex: Female : 2000 Arrival Date: 01/10/2022 Time: 17:29 Bed 4 Private MD: Diagnosis: Nonpurulent mastitis associated with Presentation: 01/10 17:31 Chief complaint: EMS states: toned out for fever and Right breast pain; 8 days post vg1 . Pt stated felt a lump to right breast and c/o of nipple pain. Pt took 500 mg PO of Tylenol at home about an hour ago. Onset of symptoms was January 09, 2022. 17:31 Method Of Arrival: EMS: [facility] 17:31 Acuity: HEATHER 3 vg1 17:31 Coronavirus screen: Vaccine status: Patient reports receiving the 1st dose of the Covid vg1 vaccine. Client denies travel out of the [place] in the last 14 days. Ebola Screen: Patient negative for fever greater than or equal to 101.5 degrees Fahrenheit, and additional compatible Ebola Virus Disease symptoms Patient denies exposure to infectious person. 17:31 Initial Sepsis Screen: Does the patient meet any 2 criteria? No. Patient's initial vg1 sepsis screen is negative. Does the patient have a suspected source of infection? No. Patient's initial sepsis screen is negative. Risk Assessment: Do you want to hurt yourself or someone else? Patient reports no desire to harm self or others. Triage Assessment: 17:44 General: Appears in no apparent distress. uncomfortable, Behavior is cooperative. Pain: vg1 Complains of pain in right breast Pain currently is 8 out of 10 on a pain scale. Pain began 1 day ago. Cardiovascular: Capillary refill. GI: Reports nausea. Derm: Skin is red, Skin temperature is hot to right breast. 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 - Social history:: Smoking status: Patient denies any tobacco usage or history of. Screenin:47 Abuse screen: Denies threats or abuse. Nutritional screening: No deficits noted. vg1 Tuberculosis screening: No symptoms or risk factors identified. Fall Risk No fall in past 12 months (0 pts). No secondary diagnosis (0 pts). IV access (20 points). Ambulatory Aid- None/Bed Rest/Nurse Assist (0 pts). Gait- Normal/Bed Rest/Wheelchair (0 pts) Mental Status- Oriented to own ability (0 pts). Total Herron Fall Scale indicates No Risk (0-24 pts). Assessment: 18:11 Reassessment: No changes from previously documented assessment. Patient and/or family ll1 updated on plan of care and expected duration. Pain level reassessed. Patient is alert, oriented x 3, equal unlabored respirations, skin warm/dry/pink. 18:50 Reassessment: No changes from previously documented assessment. Patient and/or family ll1 updated on plan of care and expected duration. Pain level reassessed. Patient is alert, oriented x 3, equal unlabored respirations, skin warm/dry/pink. 19:48 General: Appears comfortable, Behavior is calm, cooperative. Pain: Complains of pain in ha1 right breast Pain does not radiate. Pain currently is 4 out of 10 on a pain scale. Is intermittent. Neuro: Level of Consciousness is awake, alert, obeys commands, Oriented to person, place, time, situation. Cardiovascular: Patient's skin is warm and dry. Respiratory: Airway is patent Trachea midline Respiratory effort is even, unlabored, Respiratory pattern is regular, symmetrical. GI: No signs and/or symptoms were reported involving the gastrointestinal system. GI: Abdomen is non-distended, obese. : No signs and/or symptoms were reported regarding the genitourinary system. Musculoskeletal: Circulation, motion, and sensation intact. Range of motion: intact in all extremities. Vital Signs: 17:31 BP 125 / 75; Pulse 89; Resp 20; Temp 99.1(O); Pulse Ox 100% on R/A; Weight 113.4 kg; vg1 Height 5 ft. 0 in. (152.40 cm); Pain 8/10; 17:54 BP 125 / 75; Pulse 89; Resp 20; Temp 99.1; Pulse Ox 100% ; Weight 113.4 kg; Height 5 ll1 ft. 0 in. (152.40 cm); Pain 8/10; 18:49 BP 119 / 53; Pulse 89; Resp 17; Temp 99.3; Pulse Ox 96% on R/A; ll1 19:50 BP 106 / 60; Pulse 87; Resp 18 S; Pulse Ox 100% on R/A; ha1 17:54 Body Mass Index 48.82 (113.40 kg, 152.40 cm) ll1 ED Course: 17:29 Patient arrived in ED. eb 17:30 Maria Fernanda Shetty FNP-C is PHCP. kb 17:30 Joey Gilbert MD is Attending Physician. kb 17:33 Rafa Almonte PA is PHCP. m 17:33 Joey Gilbert MD is Attending Physician. [facility] 17:33 Triage completed. vg1 17:38 Jovita Nguyen RN is Primary Nurse. ll1 17:38 Arm band placed on Patient placed in an exam room, on a stretcher. ll1 17:45 Inserted saline lock: 22 gauge in left hand, using aseptic technique. Blood collected. ll1 17:48 Patient has correct armband on for positive identification. Placed in gown. Bed in low vg1 position. Call light in reach. Side rails up X 1. 18:58 Valdez Alvarez is Hospitalizing Provider. [facility] Administered Medications: 18:10 Drug: Ketorolac 30 mg Route: IVP; Site: left hand; ll1 18:27 Follow up: Response: No adverse reaction 1 18:43 Drug: Unasyn (ampicillin-sulbactam) 3 grams Route: IVPB; Infused Over: 30 mins; Site: ll1 left hand; Medication: 17:55 VIS not applicable for this client. 1 Outcome: 19:00 Decision to Hospitalize by Provider. [facility] 21:01 Patient left the ED. jb4 Signatures: Maria Fernanda Shetty FNP-C RV MECHANIC-CkRafa Roberts PA PA jmm Bryson, James RN RN jb4 Nina Sales Victoria RN RN vg1 Jovita Nguyen RN RN 1 Elenita Aguirre RN RN ha1
--- NOTE | 2022-01-10 19:33 | P.HP ---
Certification for Inpatient Patient admitted to: Inpatient With expected LOS: <2 Midnights Patient will require the following post-hospital care: None Practitioner: I am a practitioner with admitting privileges, knowledge of patient current condition, hospital course, and medical plan of care. Services: Services provided to patient in accordance with Admission requirements found in Title 42 Section 412.3 of the Code of Federal Regulations Patient History Date of Service: 01/10/22 Reason for admission: Mastitis History of Present Illness: Patient is a 21 year old female with history of anemia and gestational diabetes who presented to the ED via EMS with complaints of right breast pain/swelling and fever. Patient is 8 days and has been breast- feeding her baby. She delivered at [facility] but does not have a car so EMS brought her to this facility. Labs are significant for WBC 21.5, hgb 9.4, potassium 3.3, alk phos 142, lactic acid 1.9. Temp has been staying around 99F. Other vitals stable. Breast US showed soft tissue edema with no abscess or drainable fluid collection. She was started on unasyn in ED. She will be admitt ed for IV antibiotics. Allergies No Known Allergies Allergy (Unverified 11/14/21 22:32) Home medications list reviewed: Yes - Past Medical/Surgical History Diabetic: No -: Anemia -: Gestational Diabetes Past Surgical History: Patient denies surgical history Psychosocial/ Personal History: Patient lives at home with her baby. - Social History Smoking Status: Never smoker Alcohol use: No CD- Drugs: No Caffeine use: Yes Place of Residence: Home Review of Systems Integumentary: Other (right breast pain) Physical Examination - Physical Exam General: Alert, In no apparent distress, Obese HEENT: Atraumatic, PERRLA, EOMI, Sclerae nonicteric Neck: Supple, 2+ carotid pulse no bruit, No LAD, Without JVD or thyroid abnormality Respiratory: Clear to auscultation bilaterally, Normal air movement Cardiovascular: Regular rate/rhythm, Normal S1 S2 Gastrointestinal: Normal bowel sounds, No tenderness Musculoskeletal: No tenderness Integumentary: No rashes Neurological: Normal speech, Normal strength at 5/5 x4 extr, Normal tone, Normal affect - Studies Laboratory Data (last 24 hrs) 01/10/22 17:45: PT 12.5, INR 1.14, APTT 30.7 01/10/22 17:45: Sodium 137, Potassium 3.3 L, BUN 10, Creatinine 0.83, Glucose 99, Total Bilirubin 0.3, AST 17, ALT 25, Alkaline Phosphatase 142 H 01/10/22 17:45: WBC 21.50 H*, Hgb 9.4 L, Hct 30.7 L, Plt Count 642 H Female Exam - Breasts Breasts: Other (right breast erythematous and tender) Assessment and Plan - Problems (Diagnosis) (1) Nonpurulent mastitis associated with Current Visit: Yes Status: Acute (2) Anemia Current Visit: Yes Status: Chronic Qualifiers: Anemia type: iron deficiency Iron deficiency anemia type: unspecified iron deficiency Qualified Code(s): D50.9 - Iron deficiency anemia, unspecified - Plan -[facility] -Her baby is coming to stay with her, encourage continued breast feeding -Continue IV unasyn. Blood cultures obtained. Patient is NOT meeting sepsis criteria at this time. -Dr Kate has agreed to consult in case of abscess formation. NPO at midnight -Tylenol and ibuprofen PRN. Supportive care with IVF -Reconcile and continue home medications -Monitor and replete electrolytes per protocol -VTE prophylaxis -Full code Discharge Plan: Home Plan to discharge in: 48 Hours - Advance Directives Does patient have a Living Will: No Does patient have a Durable POA for Healthcare: No - Code Status/Comfort Care Code Status Assessed: Yes (Full) Critical Care: No Time Spent Managing Pts Care (In Minutes): 50
[2022-01-10 19:35] LABS: SARS-CoV-2 Antigen Rapid Res Negative (Negative)
--- NOTE | 2022-01-10 19:52 | RAD REPORT ---
EXAM DESCRIPTION: US - Extremity Nonvascular Limited - 01/10/2022 7:26 pm CLINICAL HISTORY: swelling, right breast COMPARISON: No comparisons FINDINGS: Limited ultrasound of the upper inner quadrant right breast performed. In the area of conc kaleb in the superficial skin does not appear abnormally thickened or edematous. In the deeper breast t issue edema is seen but no abscess or drainable fluid collection. IMPRESSION: Soft tissue edema with no abscess or drainable fluid collection.
[2022-01-10] MEDS ORDERED: ONDANSETRON 4 MG/2 ML VIAL IV PRN (20:55)
[2022-01-10 22:26] VITALS: O2SAT 100
[2022-01-10 22:32] VITALS: BMI 48.8
[2022-01-10] MEDS: ACETAMINOPHEN 325 MG TABLET PO PRN (22:46)
[2022-01-10] MEDS: NA CHLORIDE 0.9% 1,000 ML IV SCH (23:16)
[2022-01-11] MEDS: AMPICILLIN/SULBACT 3 GM in NA CHLORIDE 0.9% 100 ML IVPB SCH ×3 (01:38→17:08)
[2022-01-11] MEDS: IBUPROFEN 400 MG TAB PO PRN ×2 (03:51→19:36)
[2022-01-11 06:12] LABS: Absolute Lymphocytes (CBC) 1.9 K/uL (0.7-4.9); Lymphocytes % 8.4 % (15.3-44.8); MCV 66.6 fL (80-100); MPV 7.3 fL (7.6-11.3); RBC Red Blood Cell Count 4.36 M/uL (3.86-4.86)
[2022-01-11 06:27] LABS: Phosphorus 3.7 mg/dL (2.5-4.9); Potassium 3.6 mmol/L (3.5-5.1)
[2022-01-11 07:10] LABS: Anisocytosis 2+; Blood Morphology Comment NOTED (NOT SEEN); Hypochromasia 1+; Platelet Estimate INCR
[2022-01-11] MEDS ORDERED: INFLUENZA VACCINE (for 6+ mo) 0.5 ML DOSE IMVAC ONE (08:00)
[2022-01-11] MEDS: NA CHLORIDE 0.9% 1,000 ML IV SCH ×2 (09:33→19:36)
[2022-01-11 10:40] LABS: Specific Gravity 1.025 (1.005-1.030); Urine Bilirubin NEGATIVE (Negative); Urine Blood Negative (Negative); Urine Clarity Clear (Clear); Urine Color Light-Yellow (Yellow); Urine Glucose NEGATIVE (Negative); Urine Protein 1+ (Negative); Urine RBC <5 /HPF (None Seen); Urine Urobilinogen Normal (Normal); Urine pH 6.5 (5.0-7.0)
--- NOTE | 2022-01-11 12:59 | CON ---
Date of Consultation: 01/11/2022 Brief History Of Present Illness: The patient is a 21-year-old, G1, P1 female, who delivered her bab y 10 days ago, who noted approximately 2 days ago she developed right breast pain, swelling, and feve r. She states the right breast started feeling full and tender and has continued to breastfeed in [facility] area. She did have a delivery at [facility], but does not have a car, so EMS brought her to [facility] facility. She states that since being brought into the hospital, she was started on an antibiotic and has some significant improvement of her breast pain, but continues to be present at this point. There was some minimal redness in the area to she describes in the periareolar area. Past Medical History: Significant anemia, gestational diabetes. Past Surgical History: Denies. Allergies: NO KNOWN DRUG ALLERGIES. Social History: She denies smoking, alcohol, or recreational drug use. Review of Systems: Ten-point review of systems other than HPI, she currently denies. Physical Examination: General: At the time of my examination; she is awake, alert, and oriented. She is super morbidly ob terry. Vital Signs: BMI of 49. Blood pressure was 108/62, heart rate 80, temperature was 98.3, SpO2 99% on room air. Psychiatric: She is appropriate, conversive. HEENT: Normocephalic. Sclerae anicteric. Mucous membranes moist. Oropharynx clear. Neck: Supple without JVD. Chest: Expansion and excursion. Cardiovascular: Regular rate and rhythm. Skin: Focused examination of the chest area shows a minimal amount of cellulitis in the right perior al area. There was fullness and tenderness to the right breast at approximately the 8 o'clock to 1 o 'clock positions. This area of fullness is associated with tenderness. There is no drainable fluid collections palpable at this time. The remainder of her skin examination and contralateral breast ap pears normal. Laboratory Data: She had a laboratory exam, which reveals a white blood cell count of 22.9, hemoglob in is 8.8, hematocrit 29.0, platelet count is 571. Her sodium 138, potassium 3.6, chloride 107, carb on dioxide 23, BUN of 13, creatinine 0.7, glucose is 91. Her leukocyte esterase is 250, white blood cells greater than 50. She had imaging performed, which included an extremity ultrasound, officially read as soft tissue edema with no abscess or drainable fluid collection of the right inner quadrant breast performed. The area of concern is in the superficial skin, does not appear abnormally thicken ed or edematous. The deeper breast tissue edema is seen, but no abscess or drainable fluid collectio n. Assessment And Plan: This is a 21-year-old female with a cellulitis/possibly blocked duct and mastit is. 1.Continue medical management. 2.Hydration. 3.Continue pumping and . 4.Continue current management per primary team. I will follow along with you. If the patient devel ops a surgical need, I will follow along with you and I have explained the risks, benefits, and alter natives of drainage of a possible breast abscess including, but not limited to bleeding, infection, d amage to surrounding tissue, need for further operation and procedure. The patient agrees to proceed as indicated. Thank you for this interesting consult. CHINYERE/JULIENNE Voice ID: [id number] Report ID: [id number]
[2022-01-11] MEDS: ACETAMINOPHEN 325 MG TABLET PO PRN (15:47)
--- NOTE | 2022-01-11 15:50 | P.PN ---
Subjective Date of Service: 01/11/22 Chief Complaint: Mastitis No new complaint from yesterday. Low-grade fever noted. Physical Examination - Vital Signs Temperature: 100.0 F Blood Pressure: 117/70 Pulse: 112 Respirations: 16 Pulse Ox (%): 99 - Studies Laboratory Data (last 24 hrs) 01/10/22 17:45: PT 12.5, INR 1.14, APTT 30.7 01/10/22 17:45: Sodium 137, Potassium 3.3 L, BUN 10, Creatinine 0.83, Glucose 99, Total Bilirubin 0.3, AST 17, ALT 25, Alkaline Phosphatase 142 H 01/10/22 17:45: WBC 21.50 H*, Hgb 9.4 L, Hct 30.7 L, Plt Count 642 H Assessment And Plan - Plan Physical Exam General: Alert, In no apparent distress, Obese Neck: Supple, No LAD. Respiratory: Clear to auscultation bilaterally, Normal air movement Cardiovascular: Regular rate/rhythm, Normal S1 S2 Gastrointestinal: Normal bowel sounds, No tenderness Musculoskeletal: No tenderness Integumentary: Mild erythema noted on the left breast. Plan: Continue IV Unasyn. Pain management with NSAID as needed. General surgery-Dr. Kate is following. Monitor CBC to follow leukocytosis. She is breast-feeding with the left breast.
[2022-01-12] MEDS: AMPICILLIN/SULBACT 3 GM in NA CHLORIDE 0.9% 100 ML IVPB SCH ×3 (00:57→17:55)
[2022-01-12] MEDS: NA CHLORIDE 0.9% 1,000 ML IV SCH ×2 (06:29→14:12)
[2022-01-12 07:00] LABS: Absolute Lymphocytes (CBC) 4.3 K/uL (0.7-4.9); Lymphocytes % 22.7 % (15.3-44.8); MPV 7.5 fL (7.6-11.3); RBC Red Blood Cell Count 3.83 M/uL (3.86-4.86)
[2022-01-12 07:20] LABS: MCV 67.7 fL (80-100)
--- NOTE | 2022-01-12 11:39 | P.PN ---
Subjective Date of Service: 01/12/22 Chief Complaint: Mastitis Subjective: Improving (RIGHT breast draining well, less pain, more volume) Physical Examination - Vital Signs Temperature: 97.6 F Blood Pressure: 124/69 Pulse: 62 Respirations: 16 Pulse Ox (%): 99 - Physical Exam General: Alert, In no apparent distress, Cooperative Integumentary: Other (RIGHT breast has cellulitis @ prior marking, draining, less tender, no drainable collections, fullness remains) Assessment And Plan - Current Problems (Diagnosis) (1) Mastitis Current Visit: Yes Status: Acute Plan: - continue antibiotics - warm compresses - continue breast feeding and pumping - serial exams - CBC in AM - will consider Ultrasound if not improved tomorrow
--- NOTE | 2022-01-12 12:02 | P.PN ---
Subjective Date of Service: 01/12/22 Chief Complaint: Mastitis Patient states her right breast feels better, less pain and less heaviness. No fever today. Physical Examination - Vital Signs Temperature: 97.6 F Blood Pressure: 124/69 Pulse: 62 Respirations: 16 Pulse Ox (%): 99 Assessment And Plan - Plan Physical Exam General: Alert, In no apparent distress, Obese Neck: Supple, No LAD. Respiratory: Clear to auscultation bilaterally, Normal air movement Cardiovascular: Regular rate/rhythm, Normal S1 S2 Gastrointestinal: Normal bowel sounds, No tenderness Musculoskeletal: No tenderness Integumentary: Mild erythema noted on the left breast. Plan: Leukocytosis has not improved at a rate expected. Continue IV Unasyn. Pain management with NSAID as needed. General surgery-Dr. Kate is following. Monitor CBC to follow leukocytosis. She is breast-feeding with the left breast.
[2022-01-13] MEDS: AMPICILLIN/SULBACT 3 GM in NA CHLORIDE 0.9% 100 ML IVPB SCH ×2 (01:02→08:54)
[2022-01-13] MEDS: ACETAMINOPHEN 325 MG TABLET PO PRN (01:07)
[2022-01-13] MEDS: NA CHLORIDE 0.9% 1,000 ML IV SCH (03:27)
[2022-01-13 06:10] LABS: Absolute Lymphocytes (CBC) 4.1 K/uL (0.7-4.9); Hematocrit 26.9 % (36.0-45.0); Lymphocytes % 39.8 % (15.3-44.8); MCV 67.1 fL (80-100); MPV 7.4 fL (7.6-11.3)
[2022-01-13 07:18] LABS: Anisocytosis 1+; Blood Morphology Comment NOTED (NOT SEEN); Hypochromasia 1+; Platelet Estimate ADEQ; White Blood Cell Scan OK (OK)
[2022-01-13 07:48] VITALS: BP 121/78; TEMP 97.8
--- NOTE | 2022-01-13 10:44 | P.DS ---
Admission Date: 01/10/22 Discharge Date: 01/13/22 Disposition: ROUTINE DISCHARGE Discharge Condition: FAIR Reason for Admission: Mastitis - Problems (1) Mastitis Current Visit: Yes Status: Acute (2) Anemia Current Visit: Yes Status: Chronic Qualifiers: Anemia type: iron deficiency Iron deficiency anemia type: unspecified iron deficiency Qualified Code(s): D50.9 - Iron deficiency anemia, unspecified Brief History of Present Illness: Patient is a 21 year old female with history of anemia and gestational diabetes who presented to the ED via EMS with complaints of right breast pain/swelling and fever. Patient was 8 days and been breast-feeding her baby. She delivered at [facility] but does not have a car so EMS brought her to this facility. Labs were significant for WBC 21.5, hgb 9.4, potassium 3.3, alk phos 142, lactic acid 1.9, afebrile. Breast US showed soft tissue edema with no abscess or drainable fluid collection. She was started on unasyn in ED and admitted for further management. Hospital Course: Patient admitted to labor and delivery unit and treated with IV Unasyn. She was seen in consultation by general surgery Dr. Kate who recommended medical management and followed her clinical course. Leukocytosis resolved, patient right breast swelling, indurated erythema and pain significantly improved with antibiotics, breastmilk pumping. She was breast-feeding with a left breast. Patient's symptoms have improved, leukocytosis of resolved. She is deemed stable for discharge she is prescribed Augmentin for 10 days. Vital Signs/Physical Exam: Temp Pulse Resp BP Pulse Ox 97.8 F 52 16 121/78 99 01/13/22 07:43 01/13/22 07:43 01/13/22 07:43 01/13/22 07:43 01/12/22 16:00 General: Alert, In no apparent distress, Oriented x3 HEENT: Mucous membr. moist/pink Neck: JVD not distended Respiratory: Clear to auscultation bilaterally, Normal air movement Cardiovascular: No edema, Regular rate/rhythm, Normal S1 S2 Gastrointestinal: Normal bowel sounds, Soft and benign, Non-distended, No tenderness Musculoskeletal: No swelling Integumentary: No rashes Laboratory Data at Discharge: WBC 10.40 K/uL (4.3-10.9) 01/13/22 05:52 Hgb 8.4 g/dL (12.0-15.0) L 01/13/22 05:52 Hct 26.9 % (36.0-45.0) L 01/13/22 05:52 Plt Count 529 K/uL (152-406) H 01/13/22 05:52 PT 12.5 SECONDS (9.5-12.5) 01/10/22 17:45 INR 1.14 01/10/22 17:45 APTT 30.7 SECONDS (24.3-36.9) 01/10/22 17:45 Sodium 138 mmol/L (136-145) 01/11/22 05:44 Potassium 3.6 mmol/L (3.5-5.1) 01/11/22 05:44 BUN 13 mg/dL (7-18) 01/11/22 05:44 Creatinine 0.74 mg/dL (0.55-1.3) 01/11/22 05:44 Glucose 91 mg/dL (74-106) 01/11/22 05:44 Phosphorus 3.7 mg/dL (2.5-4.9) 01/11/22 05:44 Magnesium 2.0 mg/dL (1.8-2.4) 01/11/22 05:44 Total Bilirubin 0.3 mg/dL (0.2-1.0) 01/10/22 17:45 AST 17 U/L (15-37) 01/10/22 17:45 ALT 25 U/L (12-78) 01/10/22 17:45 Alkaline Phosphatase 142 U/L (45-117) H 01/10/22 17:45 Home Medications: Docusate Sodium 1 PO DAILY 01/10/22 Iron,Carb/Vit C/Vit B12/Folic [Iron 100 Plus Tablet] 1 PO DAILY 01/10/22 21/Iron Fu/Folic Acid [ Complete Caplet] 1 PO DAILY 01/10/22 Amox/Clavulanate [Augmentin 875-125 Tab] 875 mg PO BID #20 tab 01/13/22 New Medications: Amox/Clavulanate [Augmentin 875-125 Tab] 875 mg PO BID #20 tab Physician Discharge Instructions: PROBLEM: Mastitis GOAL: Clear understanding of disease process INSTRUCTIONS: Diet: Regular Activity: As tolerated DME DME: Date Ordered: Name of Company: [employer] Services Needed: None Name of Company: Date or Referral: IMMUNIZATION Influenza Vaccine Indicated: Yes Influenza Vaccine Given: Date Given: Pneumonia Vaccine Indicated: No Pneumonia Vaccine Given: Date Given: Diet: Regular Followup: NONE,NONE [Primary Care Provider] - (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 ) Time spent managing pt's care (in minutes): 34
--- NOTE | 2022-01-13 18:44 | EKG ---
Test Date: 2022-01-10 Test Time: 17:57:10 Flosser: RANDYL MEASUREMENT RESULTS: Intervals: Rate: 96 LA: 118 QRSD: 72 QT: 366 QTc: 462 Coden: P: 38 LA: 118 QRS: 104 T: 41 INTERPRETIVE STATEMENTS: Normal sinus rhythm Rightward axis Nonspecific T wave abnormality Prolonged QT Abnormal ECG No previous ECG available for comparison Electronically Signed On 01-13-22 18:39:21 CDT by David Bain
== END 2022-01-13 11:05 | disposition home or self-care (01) | DRG 600 ==
LOC: ER 17:25 → ERHOLD 19:16 → 2ND-WC 20:21
PROVIDERS: ADMIT Internal Medicine; ATTEND Internal Medicine
DX: N61.0 Mastitis without abscess (principal); Z68.42 Body mass index [BMI] 45.0-49.9, adult; E66.01 Morbid (severe) obesity due to excess calories; D50.9 Iron deficiency anemia, unspecified; D72.829 Elevated white blood cell count, unspecified; Z28.311 Partially vaccinated for COVID-19; Z20.822 Contact with and (suspected) exposure to COVID-19
CPT/HCPCS: 36415; 76882; 80048; 80053; 81001; 82947; 83605; 83735; 84100; 85025; 85610; 85730; 87040; 87086; 87088; 87811; 93005; 96374; 96375; 99284; J0295; J7030

== ENCOUNTER 2023-09-01 21:50 | Emergency (ER) | payer OTHER ==
--- OUTSIDE RECORDS SUMMARY | 2023-09-01 21:54 | XMS REPORT | Continuity of Care Document ---
Author Name Unknown Address [address] [facility] [address] [place] [address] [facility] [address] [facility] 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 Name Role Phone NONSTAFF Primary Care Physician Unavailab ALENA Nava Attending Clinician Unavail able Alena Mcclendon Attending Clinician + Doctor Unassigned, Dyer Attending Clinician U AYANA Ansari Attending Clinician Unavaila ble Provider, Chula Temp Attending Clinician Jeny Ayana Negrete CNM Attending Clinician [phone] Mimi Jo Attending Clinician + [phone] MIMI FLOWER Attending Clinician Unavailab Enrrique Ackerman MD Attending Clinician [phone] Ann-Marie Robledo MD Attending Clinician + Abelino Richardson MD Attending Clinician [phone] Salas Cifuentes MD Attending Clinician [phone] INDIRA PEÑA Attending Clinician Unavailabl Chula Crenshaw Nurse Attending Clinician Unava CHAITANYA Hill Attending Clinician Unavailable Princess Hayes DO Attending Clinician [phone] [place] Attending Clinician + [phone] Chaitanya Jacobo MD Attending Clinician [phone] Lab, Ang-Rmchp Attending Clinician Unavailable Ultrasound, Ang-Mfm Attending Clinician UnavailSoraya Hare MD Attending Clinician [phone] SORAYA GASPAR Attending Clinician Unavailable SORAYA GASPAR Attending Clinician Unavailable YUNG ROGERS Attending Clinician Unavailable CHAITANYA JACOBO Admitting Clinician Unavailable Saravanan LUX, Ann-Marie Aguero Admitting Clinician + ANN-MARIE ROBLEDO Admitting Clinician Lili Jacobo MD, Chaitanya Carreno Admitting Clinician Payers Payer Name Policy Type Policy Number Effective Date Expirati on Date Source [facility] [id number] 2016 00:00:00 [facility] [id number] 2017 00:00:00 2012 00:00:00 [facility] Problems Condition Name Condition Details Condition Category Status Onset Date Resolution Date Last Treatment Date Treating Clinician Comments Source Other general counseling and advice for contracept vera management Other general counseling and advice for contracept vera management Disease Active 05-28 00:00: 00 [facility] alopecia alopecia Disease Active 05-28 00:00: 00 [facility] (spontaneo us vaginal delivery) (spontaneo us vaginal delivery) Disease Active 2021-03 00:00: 00 [facility] Single live Single live Disease Active 2021-03 0- 00:00: 00 [facility] Obstetrica l laceration Obstetrica l laceration Disease Active 2021-03 0- 00:00: 00 [facility] Acute blood loss anemia Acute blood loss anemia Disease Active 2021-03 0 00:00: 00 [facility] Rubella non-immune status, antepartum Rubella non-immune status, antepartum Disease Active 2021-03- 00:00: 00 [facility] GBS (group B Streptococ cus carrier), +RV culture, currently GBS (group B Streptococ cus carrier), +RV culture, currently Disease Active 2021-03 0-12 00:00: 00 Overview: Formattin g of this note might be different from the original. Address in labor and Delivery [facility] Elevated BP without diagnosis of hypertensi on Elevated BP without diagnosis of hypertensi on Disease Active 2021-03 0-10 00:00: 00 [facility] 38 weeks gestation of 38 weeks gestation of Disease Active 2021-03 0-10 00:00: 00 [facility] Depression Depression Disease Active 2021-03 0-10 00:00: 00 [facility] Internal hemorrhoid s Internal hemorrhoid s Disease Active 8-16 00:00: 00 [facility] Diet controlled gestationa l diabetes mellitus (GDM) in third trimester Diet controlled gestationa l diabetes mellitus (GDM) in third trimester Disease Active 8-10 00:00: 00 [facility] Anemia of mother in , antepartum Anemia of mother in , antepartum Disease Active 7-27 00:00: 00 [facility] Maternal varicella, non-immune Maternal varicella, non-immune Disease Active 6-08 00:00: 00 Overview: Formattin g of this note might be different from the original. Address in PP [facility] BMI 45.0-49.9, adult BMI 45.0-49.9, adult Disease Active 06 00:00: 00 [facility] Morbid obesity Morbid obesity Disease Active 08-26 00:00: 00 [facility] History of depression History of depression Disease Active 6 00:00: 00 [facility] Multiparit y Multiparit y Disease Active 08-26 00:00: 00 [facility] Supervisio n of high risk , antepartum Supervisio n of high risk , antepartum Disease Active 6 00:00: 00 [facility] Allergies, Adverse Reactions, Alerts Allergy Name Allergy Type Status Severity Reaction(s) Onset Date Inactive Date Treating Clinician Comments Source NO KNOWN ALLERGIE S Drug Class Active [facility] Social History Social Habit Start Date Stop Date Quantity Comments Source ASSERTION 2021-04-16 00:00:00 [facility] Exposure to SARS-CoV-2 (event) 2022-05-18 00:00:00 2022-05-28 15:47:00 Not sure [facility] Alcohol intake 2022-05-28 00:00:00 2022-05-28 00:00:00 Ex-drinker (finding) [facility] Tobacco use and exposure 2021-10-16 00:00:00 2021-10-16 00:00:00 Smokeless tobacco non-user [facility] Sex Assigned At 2000 00:00:00 2000 00:00:00 [facility] Smoking Status Start Date Stop Date Source Never smoked tobacco [facility] Medications Ordered Medication Name Filled Medication Name Start Date Stop Date Current Medication? Ordering Clinician Indication Dosage Frequency Signature (SIG) Comments Components Source lidocaine (XYLOCAINE) 2 % mucosal jelly 5 mL 2021-03 16:00: 00 03-04 15:50 :00 No [id number] 5mL [facility] trichloroac etic acid 85 % solution 2021-03 16:00: 00 03-04 15:50 :00 No [id number] [facility] norethindro ne 0.35 mg tablet 2021-03 00:00: 00 Yes [id number] 1{tbl} Take 1 tablet by mouth in the morning. [facility] escitalopra m oxalate (LEXAPRO) 10 mg tablet 2021-03 00:00: 00 Yes [id number] 10mg Take 1 tablet by mouth in the morning. [facility] ascorbic acid (vitamin C) (VITAMIN C) tablet 500 mg 2021-03 14:00: 00 Yes 500mg 500 mg, Oral, BID, First dose on Kalani 01/02/22 at 0900, Until Discontinu ed, Routine [facility] ferrous sulfate tablet 325 mg 2021-03 14:00: 00 Yes 325mg 325 mg, Oral, BID, First dose on Kalani 01/02/22 at 0900, Until Discontinu ed, Routine [facility] varicella virus vaccine live (VARIVAX) injection and diluent vial 2021-03 12:53: 48 Yes 1{each} 0.5 mL (1 Each), Subcutaneo us, ONCE-PRIOR TO DISCHARGE, 1 dose, Starting on Kalani 01/02/22 at 0753, Until Discontinu ed, Routine, Give vaccine prior to discharge [facility] oseltamivir phosphate (TAMIFLU ORAL) 2021-03 07:56: 35 01-02 00:00 :00 No Take by mouth. [facility] [id number] fum-folic 27 mg iron- 1 mg folic tablet 2021-03 00:00: 00 Yes [id number] 1{tbl} Take 1 tablet by mouth in the morning. [facility] docusate 100 mg capsule 2021-03 00:00: 00 03-04 00:00 :00 No [id number] 200mg Take 2 capsules by mouth once daily as needed for Constipati on. [facility] ferrous sulfate 325 mg (65 mg iron) tablet 2021-03 00:00: 00 03-04 00:00 :00 No [id number] 325mg Take 1 tablet by mouth in the morning and 1 tablet in the evening. [facility] ibuprofen 600 mg tablet 2021-03 00:00: 00 03-04 00:00 :00 No [id number] 600mg Take 1 tablet by mouth every 6 (six) hours as needed (Pain). Take with food or milk. [facility] foLIC acid 1 mg tablet 2021-03 00:00: 00 03-04 00:00 :00 No [id number] 1mg Take 1 tablet by mouth in the morning. [facility] rho(D) immune globulin (RHOGAM) syringe 300 mcg 2021-03 13:35: 12 Yes 300ug 300 mcg, Intramuscu lar, ONCE, For 1 dose, Conditiona l, Routine [facility] diphenhydrA MINE (BENADRYL) tablet 25 mg 2021-03 13:35: 02 Yes 25mg 25 mg, Oral, Q6HPRN, Starting on Thu01/01/22 at 0835, Until Discontinu ed, Routine, Sleep, Itching [facility] ondansetron (ZOFRAN (PF)) injection 4 mg 2021-03 13:35: 02 Yes 4mg 4 mg, Slow IV Push, Q8HPRN, Starting on Thu01/01/22 at 0835, Until Discontinu ed, Routine, Nausea and Vomiting (N/V) [facility] simethicone (GAS RELIEF (SIMETHICON E)) chewable tablet 160 mg 2021-03 13:35: 02 Yes 160mg 160 mg, Oral, PC+HSPRN, Starting on Thu01/01/22 at 0835, Until Discontinu ed, Routine, Gas [facility] docusate (COLACE) capsule 200 mg 2021-03 13:35: 02 Yes 200mg 200 mg, Oral, QDAILYPRN, Starting on Thu01/01/22 at 0835, Until Discontinu ed, Routine, Constipati on [facility] magnesium hydroxide (MILK OF MAGNESIA) 400 mg/5 mL suspension 30 mL 2021-03 13:35: 02 Yes 30mL 30 mL, Oral, QDAILYPRN, Starting on Thu01/01/22 at 0835, Until Discontinu ed, Routine, Constipati on [facility] benzocaine- menthol (DERMOPLAST ) 20-0.5 % topical spray 2021-03 13:25: 56 Yes Topical, PRN, Starting on Thu01/01/22 at 0825, Until Discontinu ed, Routine, Perineum discomfort [facility] ibuprofen (IBU) tablet 600 mg 2021-03 12:36: 04 Yes 600mg 600 mg, Oral, Q6HPRN, Starting on Thu01/01/22 at 0736, Until Discontinu ed, Routine, Pain (scale 4-6) [facility] acetaminoph en (TYLENOL) tablet 650 mg 2021-03 12:36: 04 Yes 650mg 650 mg, Oral, Q6HPRN, Starting on Thu01/01/22 at 0736, Until Discontinu ed, Routine, Pain (scale 1-3) [facility] oxytocin (PITOCIN) 30 units in NS 500 mL IV infusion 2021-03 10:34: 12 01-01 13:35 :10 No 300mL/h 300 mL/hr, IV Infusion, SEE-INSTRU CTIONS, Starting on Thu01/01/[address] at 300 mL/hr for 1 hr then 150 mL/hr for 1 hr. & nbsp; For post delivery uterotonic
[facility] oseltamivir phosphate (TAMIFLU ORAL) 2021-03 05:35: 54 Yes Take by mouth. [facility] lactated ringers IV infusion 500 mL 2021-03 03:45: 00 01-01 03:36 :00 No 500mL at 999 mL/hr, 500 mL, IV Infusion, ONCE, 1 dose, On Thu12/31/21 at 2245, Routine [facility] sodium citrate-cit radha acid (BICITRA) 500-334 mg/5 mL solution 30 mL 2021-03 02:54: 39 01-01 02:56 :00 No 30mL 30 mL, Oral, PRE-PROCED URE ONCE, 1 dose, Starting on Thu12/31/21 at 2154, Until Thu12/31/21 at 2156, Routine, Surgery/Pr ocedure [facility] sodium citrate-cit radha acid (BICITRA) 500-334 mg/5 mL solution 30 mL 2021-03 01:00: 00 01-01 00:14 :00 No 30mL 30 mL, Oral, ONCE NOW, 1 dose, On Thu12/31/21 at 2000, Routine [facility] lactated ringers IV infusion 500 mL 2021-03 00:27: 34 01-01 01:21 :00 No 500mL at 999 mL/hr, 500 mL, IV Infusion, PRN - SEE INSTRUCTIO NS, 1 dose, Starting on Thu12/31/21 at 1927, Until Thu12/31/21 at 2021, Routine [facility] lactated ringers IV infusion 500 mL 2021-03 19:15: 00 12-31 20:12 :18 No 500mL at 999 mL/hr, 500 mL, IV Infusion, ONCE, 1 dose, On Thu12/31/21 at 1415, Routine [facility] ropivacaine 0.2 % (NAROPIN (PF)) epidural infusion 2021-03 19:10: 00 Yes Epidural, CONTINUOUS PRN, Starting on Thu12/31/21 at 1410, Until Discontinu ed, Routine, Intra-op [facility] lidocaine-e pinephrine (XYLOCAINE W/EPINEPHRI NE) 1.5 %-1:200,000 injection 2021-03 19:04: 00 Yes Intraderma l, ONCE INTRA PROCEDURE, Starting on Thu12/31/21 at 1404, Until Discontinu ed, Routine, Intra-op [facility] lidocaine 1% (XYLOCAINE) 100 mg/10 mL (1 %) injection 2021-03 18:58: 00 Yes Infiltrati on, ONCE INTRA PROCEDURE, Starting on Thu12/31/21 at 1358, Until Discontinu ed, Routine, Intra-op [facility] lactated ringers IV infusion 500 mL 2021-03 18:16: 35 12-31 19:18 :47 No 500mL at 999 mL/hr, 500 mL, IV Infusion, PRN - SEE INSTRUCTIO NS, 1 dose, Starting on Thu12/31/21 at 1316, Until Thu12/31/21 at 1418, Routine [facility] sodium citrate-cit radha acid (BICITRA) 500-334 mg/5 mL solution 30 mL 2021-03 18:16: 35 12-31 18:50 :00 No 30mL 30 mL, Oral, PRE-PROCED URE ONCE, 1 dose, Starting on Thu12/31/21 at 1316, Until Thu12/31/21 at 1350, Routine, Surgery/Pr ocedure [facility] proMETHazin e (PHENERGAN) 12.5 mg in NS 50 mL IV piggyback (CNR) 2021-03 13:45: 00 12-31 14:07 :38 No 12.5mg 12.5 mg, IV Piggyback, at 200 mL/hr Administer over 15 Minutes, ONCE, 1 dose, On Thu12/31/21 at 0845, Routine [facility] butorphanol (STADOL) injection 1 mg 2021-03 13:45: 00 12-31 13:08 :00 No 1mg 1 mg, Intravenou s, ONCE, 1 dose, On Thu12/31/21 at 0845, Routine [facility] oxytocin (PITOCIN) 30 units in NS 500 mL IV infusion 2021-03 11:49: 16 01-01 13:35 :10 No 2mU/min at 2-40 mL/hr, IV Infusion, TITRATE, Starting on Thu12/31/21 at 0649, Until Thu01/01/22 at 0835, CAN [facility] proMETHazin e (PHENERGAN) 12.5 mg in NS 50 mL IV piggyback (CNR) 2021-03 07:15: 00 12-31 09:13 :00 No 12.5mg 12.5 mg, IV Piggyback, at 200 mL/hr Administer over 15 Minutes, ONCE, 1 dose, On Thu12/31/21 at 0215, Routine [facility] butorphanol (STADOL) injection 1 mg 2021-03 07:15: 00 12-31 06:30 :00 No 1mg 1 mg, Intravenou s, ONCE, 1 dose, On Thu12/31/21 at 0215, Routine [facility] Sliding Scale Insulin-Reg ular + Fsbg Testing 2021-03 05:00: 00 01-01 13:35 :10 No Subcutaneo us, Q4H, First dose on Thu12/31/21 at 0000, Until Discontinu ed, Routine [facility] D5W-LR IV infusion 1,000 mL 2021-03 0-11 02:24: 18 01-01 13:35 :10 No 1000mL at 1-125 mL/hr, IV Infusion, TITRATE, Starting on Thu12/30/21 at 2124, Until Thu01/01/22 at 0835, Routine [facility] oseltamivir phosphate (TAMIFLU ORAL) 2021-03 0 19:36: 14 Yes Take by mouth. [facility] hydrocortis one 25 mg suppository 11-05 00:00: 00 01-02 00:00 :00 No [id number] 25mg Insert 1 Suppositor y into rectum in the morning and 1 Suppositor y in the evening. [facility] ascorbic acid, vitamin C, 500 mg tablet 10-30 00:00: 00 01-02 00:00 :00 No [id number] 500mg Take 1 tablet by mouth in the morning and 1 tablet at noon and 1 tablet in the evening. [facility] ferrous sulfate 325 mg (65 mg iron) tablet 10-30 00:00: 00 01-02 00:00 :00 No [id number] 325mg Take 1 tablet by mouth in the morning and 1 tablet in the evening. [facility] oseltamivir phosphate (TAMIFLU ORAL) 10-21 20:52: 40 Yes Take by mouth. [facility] Blood-Gluco se Meter (FREESTYLE FREEDOM LITE) Kit 10-21 00:00: 00 01-02 00:00 :00 No [id number] Use as directed [facility] blood sugar diagnostic (FREESTYLE LITE STRIPS) strip 10-21 00:00: 00 01-02 00:00 :00 No [id number] Use as directed [facility] lancets 17 gauge Misc 10-21 00:00: 00 01-02 00:00 :00 No [id number] Use as directed [facility] metroNIDAZO LE (FLAGYL) 500 mg tablet 10-21 00:00: 00 01-02 00:00 :00 No [id number] 500mg Take 1 tablet by mouth every 12 (twelve) hours. [facility] Nitrofurant oin&Nit. Macrocryst 100 mg capsule 10-21 00:00: 00 01-02 00:00 :00 No [id number] 100mg Take 1 capsule by mouth in the morning and 1 capsule in the evening. [facility] vit 33-iron-fol ic-dha (SELECT-OB + DHA) 29 mg iron-1 mg -250 mg combo pack 08-26 00:00: 00 01-02 00:00 :00 No [id number] 1{packe t} Take 1 Packet by mouth daily. [facility] Vital Signs Vital Name Observation Time Observation Value Comments S ource Systolic blood pressure 2022-05-28 21:48:00 108 mm[Hg] [facility] Diastolic blood pressure 2022-05-28 21:48:00 65 mm[Hg] [facility] Heart rate 2022-05-28 21:48:00 63 /min [facility] Body temperature 2022-05-28 21:48:00 36.5 Eli [facility] Respiratory rate 2022-05-28 21:48:00 20 /min [facility] Body height 2022-05-28 21:48:00 152.4 cm [facility] Body weight 2022-05-28 21:48:00 108.001 kg [facility] BMI 2022-05-28 21:48:00 46.50 kg/m2 [facility] Systolic blood pressure 2022-03-04 15:09:00 112 mm[Hg] [facility] Diastolic blood pressure 2022-03-04 15:09:00 71 mm[Hg] [facility] Heart rate 2022-03-04 15:09:00 56 /min [facility] Body temperature 2022-03-04 15:09:00 36 Eli [facility] Respiratory rate 2022-03-04 15:09:00 17 /min [facility] Body height 2022-03-04 15:09:00 152.4 cm [facility] Body weight 2022-03-04 15:09:00 102.513 kg [facility] BMI 2022-03-04 15:09:00 44.14 kg/m2 [facility] Systolic blood pressure 2022-01-24 18:43:00 128 mm[Hg] [facility] Diastolic blood pressure 2022-01-24 18:43:00 75 mm[Hg] [facility] Heart rate 2022-01-24 18:43:00 58 /min [facility] Body temperature 2022-01-24 18:43:00 36.61 Eli [facility] Respiratory rate 2022-01-24 18:43:00 18 /min [facility] Body weight 2022-01-24 18:43:00 102.558 kg [facility] BMI 2022-01-24 18:43:00 44.16 kg/m2 [facility] Systolic blood pressure 2022-01-03 21:43:00 128 mm[Hg] [facility] Diastolic blood pressure 2022-01-03 21:43:00 71 mm[Hg] [facility] Heart rate 2022-01-03 21:43:00 80 /min [facility] Body temperature 2022-01-03 21:43:00 36.61 Eli [facility] Respiratory rate 2022-01-03 21:43:00 18 /min [facility] Oxygen saturation in Arterial blood by Pulse oximetry 2022-01-03 21:43:00 98 /min [facility] Body height 2021-12-31 19:48:00 152.4 cm [facility] Body weight 2021-12-31 19:48:00 113.445 kg [facility] BMI 2021-12-31 19:48:00 48.84 kg/m2 [facility] Systolic blood pressure 2021-12-30 21:32:00 148 mm[Hg] [facility] Diastolic blood pressure 2021-12-30 21:32:00 92 mm[Hg] [facility] Systolic blood pressure 2021-12-30 20:48:00 161 mm[Hg] [facility] Diastolic blood pressure 2021-12-30 20:48:00 92 mm[Hg] [facility] Heart rate 2021-12-30 20:30:00 81 /min [facility] Respiratory rate 2021-12-30 20:30:00 17 /min [facility] Body weight 2021-12-30 20:30:00 113.445 kg [facility] BMI 2021-12-30 20:30:00 48.84 kg/m2 [facility] Procedures Procedure Date / Time Performed Performing Clinician Source [id number] CONSENT 2022-05-28 06:01:00 Doctor Unas signed, Dyer [facility] PAP SMEAR-LIQUID BASED-CP 2022-03-04 16:28:00 Ayana Samuel [facility] DISCLOSURE AND CONSENT, MEDICAL AND SURGICAL PROCEDURES 2022-03-04 06:01:00 Doctor Unassigned, Dyer [facility] DME/SUPPLY JUSTIFICATION 2022-01-22 05:01:00 Doc tor Unassigned, Dyer [facility] CBC WITH DIFF 2022-01-03 17:57:00 Mylene Estrella [facility] POCT GLUCOSE (AUTOMATED) 2022-01-02 11:02:00 [facility] CBC WITH DIFF 2022-01-02 05:08:00 Arminda Wu [facility] VENOUS CORD GAS 2022-01-01 10:35:00 Jia Lopez [facility] POCT GLUCOSE (AUTOMATED) 2022-01-01 09:02:00 [facility]me [facility] POCT GLUCOSE (AUTOMATED) 2022-01-01 07:01:00 [facility] POCT GLUCOSE (AUTOMATED) 2022-01-01 04:50:00 Ome [facility] CENTRAL NEURAXIAL BLOCK 2022-01-01 03:35:18 Lisa العراقي ar [facility] POCT GLUCOSE (AUTOMATED) 2022-01-01 02:57:00 Ome Ann-Marie loera [facility] CENTRAL NEURAXIAL BLOCK 2022-01-01 01:03:31 Rohitnichelle Lisa clancy [facility] POCT GLUCOSE (AUTOMATED) 2021-12-31 23:14:00 Ome reAnn-Marie [facility] POCT GLUCOSE (AUTOMATED) 2021-12-31 19:21:00 Ome reAnn-Marie [facility] CENTRAL NEURAXIAL BLOCK 2021-12-31 19:05:32 Malachi Red [facility] POCT GLUCOSE (AUTOMATED) 2021-12-31 15:29:00 Ome reAnn-Marie [facility] POCT GLUCOSE (AUTOMATED) 2021-12-31 11:20:00 Ome evaristo Ann-Marie [facility] POCT GLUCOSE (AUTOMATED) 2021-12-31 07:50:00 Ome evaristo Ann-Marie [facility] CBC WITH DIFF 2021-12-31 06:11:00 John [facility] HEPATITIS B SURFACE ANTIGEN 2021-12-31 06:10:00 John [facility] HIV 1/2 AG-AB WITH REFLEX 2021-12-31 06:10:00 John [facility] GALV ONLY - SYPHILIS IGG/IGM 2021-12-31 06:10:00 John [facility] HB ABO GROUPING 2021-12-31 05:22:00 [facility]E GLOBULIN 2021-12-31 05:22:00 Emily Galvez [facility] POCT GLUCOSE (AUTOMATED) 2021-12-31 05:12:00 Ome John loerabarak [facility] POCT URINALYSIS 2021-12-30 00:00:00 Mimi Flower [facility] EXTERNAL PROVIDER RECORDS 2021-11-27 05:01:00 Doctor Unassigned, Dyer [facility] Encounters Start Date/Time End Date/Time Encounter Type Admission Type Attending Clinicians Care Facility Care Department Encounter ID Source 2021-10-21 20:53:25 Outpatient P [facility] ROGER [id number] [facility] 2023-03-04 09:30:00 2023-03-04 09:30:00 Outpatient R ALENA POPE [facility] [id number] [facility] 2022-06-02 09:30:00 2022-06-02 09:30:00 Outpatient R ALENA POPE [facility] [id number] [facility] 2022-05-28 16:00:00 2022-05-28 16:09:09 Outpatient R ALENA POPE [facility] [id number] [facility] 2022-05-28 16:00:00 2022-05-28 16:09:09 Office Visit Alena Pope [facility] NEWS ANALYST [facility] [id number] [facility] 2022-05-28 00:00:00 2022-05-28 00:00:00 Orders Only Doctor Unassigned, Dyer [facility] 1..114 [id number] [facility] 2022-05-24 00:00:00 2022-05-24 00:00:00 Telephone Alena Pope [facility] NEWS ANALYST [facility] [id number] [facility] 2022-04-29 00:00:00 2022-04-29 00:00:00 Telephone Alena Pope METEJAS NEWS ANALYST [facility] 1..114 [id number] [facility] 2022-04-03 08:15:00 2022-04-03 08:15:00 Outpatient R [facility] [id number] [facility] 2022-03-06 10:30:00 2022-03-06 10:30:00 Outpatient R ALENA POPE [facility] [id number] [facility] 2022-03-04 09:00:00 2022-03-04 10:18:29 Outpatient AYANA SIDHU [facility] [id number] [facility] 2022-03-04 09:00:00 2022-03-04 10:18:29 Office Visit Provider, Ayana Szymanski [facility] 1..840.114 350.1.13.10 4.2.7.2.686 [id number] [facility] 2022-03-04 00:00:00 2022-03-04 00:00:00 Orders Only Doctor Unassigned, [place] [facility] 1.2.840.114 350.1.13.10 4.2.7.2.686 [id number] [id number] [facility] 2022-02-17 14:00:00 2022-02-17 14:00:00 Outpatient R ALENA POPE [facility] [id number] [facility] 2022-02-17 08:00:00 2022-02-17 08:00:00 Outpatient ALENA LOMELI [facility] [id number] [facility] 2022-01-24 13:00:00 2022-01-24 14:14:52 Outpatient AYANA SIDHU [facility] [id number] [facility] 2022-01-24 13:00:00 2022-01-24 14:14:52 Routine Visit Provider, Lamine-Rmchp Ayana Henry [facility] MAT[facility] & CHILD [facility] 1.2.840.114 350.1.13.10 4.2.7.2.686 [id number] [facility] 2022-01-22 00:00:00 2022-01-22 00:00:00 Orders Only Doctor Unassigned, [place] [facility] 1.2.840.114 350.1.13.10 4.2.7.2.686 [id number] [facility] 2022-01-13 00:00:00 2022-01-13 00:00:00 Telephone Mimi Flower [facility] NEWS [facility] & CHILD [facility] 1.2.840.114 350.1.13.10 4.2.7.2.686 [id number] [facility] 2022-01-10 13:00:00 2022-01-10 13:00:00 Outpatient R MIMI FLOWER [facility] [id number] [facility] 2022-01-10 00:00:00 2022-01-10 00:00:00 Telephone Mimi Flower [facility] & CHILD [facility] 1.2840.114 350.1.13.10 4.2.7.2.686 [id number] [facility] 2022-01-09 00:00:00 2022-01-09 00:00:00 Telephone Mimi Flower [facility] & CHILD [facility] 1.2.840.114 350.1.13.10 4.2.7.2.686 [id number] [facility] 2022-01-05 00:00:00 2022-01-05 00:00:00 Telephone Mimi Flower [facility] & CHILD [facility] 1.0.114 350.1.13.10 4.2.7.2.686 [id number] [facility] 2021-12-30 19:35:00 2022-01-03 20:15:00 Hospital Encounter Enrrique Agarwal Saravanan, Ann-Marie Ikuvbogie [facility] 1.0.114 350.1.13.10 4.2.7.2.686 [id number] [facility] 2021-12-31 13:45:00 2022-01-01 06:35:00 Anesthesia Event Abelino Richardson, Salas [facility] 1..114 350.1.13.10 4.2.7.2.686 [id number] [facility] 2021-12-30 15:15:00 2021-12-30 16:38:46 Outpatient R MIMI FLOWER [facility] ROGER [id number] [facility] 2021-12-30 15:15:00 2021-12-30 15:30:00 Routine Visit Mimi Flower [facility] 1..114 350.1.13.10 4.2.7.2.686 [id number] [facility] 2021-12-30 15:15:00 2021-12-30 15:15:00 Outpatient R MIMI FLOWER [facility] [id number] [facility] 2021-11-28 15:30:00 2021-11-28 15:30:00 Outpatient R [facility] [id number] [facility] 2021-11-27 00:00:00 2021-11-27 00:00:00 Orders Only Doctor Unassigned, [place] [facility] 1..114 350.1.13.10 4.2.7.2.686 [id number] [facility] 2021-11-14 15:15:00 2021-11-14 15:15:00 Outpatient R INDIRA PEÑA [facility] [id number] [facility] 2021-11-06 00:00:00 2021-11-06 00:00:00 Telephone Radha Flowerjohn [facility] NEWS [facility] & CHILD [facility] 1.2.840.114 350.1.13.10 4.2.7.2.686 [id number] [facility] 2021-11-05 14:30:00 2021-11-05 15:25:34 Outpatient R FLOWER, MIMI [facility] [id number] [facility] 2021-11-05 14:30:00 2021-11-05 15:25:34 Routine Visit FlowerMimi [facility] NEWS [facility] & CHILD [facility] 1.2840.114 350.1.13.10 4.2.7.2.686 [id number] [facility] 2021-11-04 00:00:00 2021-11-04 00:00:00 Telephone Radha Flowerjohn [facility] NEWS [facility] & CHILD [facility] 1.2.840.114 350.1.13.10 4.2.7.2.686 [id number] [facility] 2021-10-30 15:15:00 2021-10-30 15:46:45 Outpatient R RADHA FLOWERJOHN [facility] [id number] [facility] 2021-10-30 15:15:00 2021-10-30 15:46:45 Routine Visit Radha Flowerjohn [facility] NEWS [facility] & CHILD [facility] 1.2.840.114 350.1.13.10 4.2.7.2.686 [id number] [facility] 2021-10-30 15:15:00 2021-10-30 15:15:00 Outpatient MIMI SHARMA [facility] [id number] [facility] 2021-10-30 00:00:00 2021-10-30 00:00:00 Orders Only Doctor Unassigned, [place] [facility] 1..840.114 350.1.13.10 4.2.7.2.686 [id number] [facility] 2021-10-23 13:00:00 2021-10-23 13:26:19 [facility] & CHILD [facility] 1.840.114 350.1.13.10 4.2.7.2.686 [id number] [facility] 2021-10-23 13:00:00 2021-10-23 13:00:00 Outpatient R MIMI FLOWER [facility] [id number] [facility] 2021-10-21 16:46:00 2021-10-21 20:52:00 Outpatient CHAITANYA PALOMO [facility] [id number] [facility] 2021-10-21 16:46:00 2021-10-21 20:52:00 Hospital Encounter Princess Hayes, Chaitanya Espinal [facility] 1..840.114 350.1.13.10 4.2.7.2.686 [id number] [facility] 2021-10-21 00:00:00 2021-10-21 00:00:00 Telephone Mimi Flower [facility] & CHILD 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 1.2840.114 350.1.13.10 4.2.7.2.686 [id number] [facility] 2021-10-18 07:45:00 2021-10-18 07:45:00 Outpatient R [facility] [id number] [facility] 2021-10-18 07:45:00 2021-10-18 07:45:00 Outpatient R MIMI FLOWER [facility] [id number] [facility] 2021-10-16 12:45:00 2021-10-16 14:03:21 Outpatient R MIMI FLOWER [facility] [id number] [facility] 2021-10-16 12:45:00 2021-10-16 14:03:21 Routine Visit Mimi Flower [facility] NEWS ANA[facility]ST [facility] CHILD [facility] 1.840.114 350.1.13.10 4.2.7.2.686 [id number] [facility] 2021-09-26 00:00:00 2021-09-26 00:00:00 Telephone Mimi Flower [facility] NEWS [facility]ST [facility] CHILD [facility] 1..840.114 350.1.13.10 4.2.7.2.686 [id number] [facility] 2021-09-25 11:00:00 2021-09-25 11:15:37 Outpatient R MIMI FLOWER [facility] [id number] [facility] 2021-09-25 11:00:00 2021-09-25 11:15:37 Routine Visit Mimi Flower [facility] NEWS [facility] & CHILD [facility] 1..840.114 350.1.13.10 4.2.7.2.686 [id number] [facility] 2021-09-24 00:00:00 2021-09-24 00:00:00 Abstract Mimi Flower [facility] NEWS [facility]ST [facility] & CHILD 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 1.20.114 350.1.13.10 4.2.7.2.686 [id number] [facility] 2021-09-20 10:45:00 2021-09-20 10:45:00 Outpatient P SORAYA GASPAR SHANNON [facility] [id number] [facility] 2021-09-20 00:00:00 2021-09-20 00:00:00 Orders Only Doctor Unassigned, [place] [facility] 1.20.114 350.1.13.10 4.2.7.2.686 [id number] [facility] 2021-08-27 00:00:00 2021-08-27 00:00:00 Orders Only Doctor Unassigned, [place] [facility] 1.2840.114 350.1.13.10 4.2.7.2.686 [id number] [facility] 2021-08-26 14:00:00 2021-08-26 14:30:00 Initial Visit Mimi Flower [facility] & CHILD [facility] 1.2840.114 350.1.13.10 4.2.7.2.686 [id number] [facility] 2021-08-26 14:00:00 2021-08-26 14:00:00 Outpatient MIMI SHARMA [facility] [id number] [facility] 2021-08-26 13:30:00 2021-08-26 13:30:00 Outpatient MIMI SHARMA [facility] [id number] [facility] 2021-08-26 13:30:00 2021-08-26 13:30:00 Outpatient MIMI SHARMA [facility] [id number] [facility] 2017-06-30 19:25:00 2017-06-30 22:00:00 Departed Emergency Room ER [facility] [id number] [facility] Results Test Description Test Time Test Comments Results Result Co mments Source [facility] with [id number] 06:12:56* Test Item Value Reference Range Interpretation Comme nts WBC (test code = 6690-2) See_Comment H [Automated message] The system which generated this result transmitted reference range: 4.30 - 11.10 10*3/?L. The reference range was not used to interpret this result as normal/abnormal. RBC (test code = 789-8) See_Comment L [Automated message] The system which generated this result transmitted reference range: 3.93 - 5.25 10*6/?L. The reference range was not used to interpret this result as normal/abnormal. HGB (test code = 718-7) 7.0 g/dL 11.6-15 L HCT (test code = 4544-3) 23.4 % 35.7-45.2 L MCV (test code = 787-2) 69.0 fL 80.6-95.5 L MCH (test code = 785-6) 20.6 pg 25.9-32.8 L MCHC (test code = 786-4) 29.9 g/dL 31.6-35.1 L RDW-SD (test code = 77062-4) 46.1 fL 39-49.9 RDW-CV (test code = 788-0) 19.1 % 12-15.5 H PLT (test code = 777-3) See_Comment [Automated message] The system which generated this result transmitted reference range: 166 - 358 10*3/?L. The reference range was not used to interpret this result as normal/abnormal. MPV (test code = 40364-3) 10.3 fL 9.5-12.9 NRBC/100 WBC (test code = 8825260871) See_Comment [Automated message] The system which generated this result transmitted reference range: 0.0 - 10.0 /100 WBCs. The reference range was not used to interpret this result as normal/abnormal. NRBC x10^3 (test code = 0123929358) See_Comment [Automated message] The system which generated this result transmitted reference range: 10*3/?L. The reference range was not used to interpret this result as normal/abnormal. GRAN MAT (NEUT) % (test code = 770-8) 75.0 % IMM GRAN % (test code = 0901364317) 1.30 % LYMPH % (test code = 736-9) 17.5 % MONO % (test code = 5905-5) 5.7 % EOS % (test code = 713-8) 0.3 % BASO % (test code = 706-2) 0.2 % GRAN MAT x10^3(ANC) (test code = 8894999046) 18.57 10*3/uL 1.88-7.09 H IMM GRAN x10^3 (test code = 7477436827) 0.32 10*3/uL 0-0.06 H LYMPH x10^3 (test code = 731-0) 4.33 10*3/uL 1.32-3.29 H MONO x10^3 (test code = 742-7) 1.40 10*3/uL 0.33-0.92 H EOS x10^3 (test code = 711-2) 0.08 10*3/uL 0.03-0.39 BASO x10^3 (test code = 704-7) 0.05 10*3/uL 0.01-0.07 BANDS (test code = 9864230749) Increased A Lab Interpretation (test code = 01264-7) Abnormal [facility] (D) IMMUNE [id number] 13:50:00* Test Item Value Reference Range Interpretation Comme nts RHIG CANDIDATE? (test code = 5055) No- see comment Patient is not a candidate for RhIg- Patient is Rh Positive.Performed at [facility] Laboratory Services - [facility] Blood [address] [address] Free: [phone] No. [id number] [facility] [id number] 10:47:16* Test Item Value Reference Range Interpretation Comme nts VENOUS BASE EXCESS, CORD (test code = 6675721002) mEq/L VENOUS PH, CORD (test code = 5453380490) 7.25-7.45 VENOUS PC02, CORD (test code = 4667106371) See_Comment [Automated messa ge] The system which generated this result transmitted reference range: 27 - 49 mmHg. The reference range was not used to interpret this result as normal/abnormal. VENOUS PO2, CORD (test code = 0262182044) See_Comment [Automated me ssage] The system which generated this result transmitted reference range: 17 - 41 mmHg. The reference range was not used to interpret this result as normal/abnormal. VENOUS BICARBONATE, CORD (test code = 2380591624) See_Comment [Automated messa ge] The system which generated this result transmitted reference range: 12 - 29 mEq/L. The reference range was not used to interpret this result as normal/abnormal. [facility] [id number] 10:46:16* Test Item Value Reference Range Interpretation Comme nts BASE EXCESS, CORD (test code = 8428711463) mEq/L AC PH, CORD (BEAKER) (test code = 8249326957) 7.18-7.38 L PC02, CORD (test code = 6111268800) See_Comment [Automated messa ge] The system which generated this result transmitted reference range: 32 - 66 mmHg. The reference range was not used to interpret this result as normal/abnormal. PO2, CORD (test code = 8731901339) See_Comment [Automated messa ge] The system which generated this result transmitted reference range: 10 - 30 mmHg. The reference range was not used to interpret this result as normal/abnormal. BICARBONATE, CORD (test code = 3660444339) See_Comment [Automated me ssage] The system which generated this result transmitted reference range: 17 - 27 mEq/L. The reference range was not used to interpret this result as normal/abnormal. Lab Interpretation (test code = 29997-2) Abnormal [facility] GLUCOSE (AUTOMATED)2022-01-01 09:03:23* Test Item Value Reference Range Interpretation Comme nts POCT GLU (test code = 3989057812) 123 mg/dL 70-110 H Lab Interpretation (test cod e = 36075-1) Abnormal [facility] GLUCOSE (AUTOMATED)2022-01-01 07:02:45* Test Item Value Reference Range Interpretation Comme nts POCT GLU (test code = 0818323393) 124 mg/dL 70-110 H Lab Interpretation (test cod e = 67004-4) Abnormal [facility] GLUCOSE (AUTOMATED)2022-01-01 04:51:25* Test Item Value Reference Range Interpretation Comme nts POCT GLU (test code = 6470015830) 128 mg/dL 70-110 H Lab Interpretation (test cod e = 74327-4) Abnormal [facility] GLUCOSE (AUTOMATED)2022-01-01 02:58:36* Test Item Value Reference Range Interpretation Comme nts POCT GLU (test code = 1507091515) 120 mg/dL 70-110 H Lab Interpretation (test cod e = 19573-8) Abnormal [facility] GLUCOSE (AUTOMATED)2021-12-31 23:16:04* Test Item Value Reference Range Interpretation Comme nts POCT GLU (test code = 9513331535) 102 mg/dL 70-110 Lab Interpretation (test cod e = 66058-5) Normal [facility] GLUCOSE (AUTOMATED)2021-12-31 20:33:59* Test Item Value Reference Range Interpretation Comme nts POCT GLU (test code = 7842458622) 110 mg/dL 70-110 Lab Interpretation (test cod e = 09007-9) Normal [facility] GLUCOSE (AUTOMATED)2021-12-31 20:32:25* Test Item Value Reference Range Interpretation Comme nts POCT GLU (test code = 9895541682) 100 mg/dL 70-110 Lab Interpretation (test cod e = 52377-9) Normal [facility] ONLY - SYPHILIS IGG/[id number] 14:35:39* Test Item Value Reference Range Interpretation Comme nts Syphilis IgG/IgM (test code = 52796-7) Non-reactive Non-reactive OSMANY (test code = OSMANY) Non-reactive - No serologic evidence of T. pallidum infection. Cannot exclude incubating or early syphilis. Submit a second specimen in 2-4 weeks if syphilis is clinically suspected. Equivocal - Further testing to follow. Reactive - Further testing to follow. Lab Interpretation (test code = 96033-5) Normal [facility]-AB WITH [id number] 12:18:07* Test Item Value Reference Range Interpretation Comme nts HIV Semi-quantitative (test code = 21355-7) Negative Negative OSMANY (test code = OSMANY) Non-reactive for HIV-1 antigen and HIV-1/HIV-2 antibodies. ?No laboratory evidence of HIV infection. ?Repeat in 2-4 weeks if acute HIV infection is suspected. [facility] Hospital[facility]atitis B Surface [id number] 11:22:17 * Test Item Value Reference Range Interpretation Comme nts HBsAg Semi-Quantitative (amber t code = 5195-3) Negative Negative [facility] GLUCOSE (AUTOMATED)2021-12-31 11:21:22* Test Item Value Reference Range Interpretation Comme nts POCT GLU (test code = 5901349470) 116 mg/dL 70-110 H Lab Interpretation (test cod e = 86446-8) Abnormal [facility] GLUCOSE (AUTOMATED)2021-12-31 07:52:22* Test Item Value Reference Range Interpretation Comme nts POCT GLU (test code = 4283262177) 116 mg/dL 70-110 H Lab Interpretation (test cod e = 52965-1) Abnormal [facility] Screen - ONCE [id number] 07:29:20 * Test Item Value Reference Range Interpretation Comme nts ABO & RH (test code = 20) O POSITIVE Performed at [facility] Laboratory Services - [facility] Blood [address] Free: [phone] No. [id number] IAT (test code = 1185) Negative Performed at [facility] Laboratory Services - [facility] Blood [address] Free: [phone] No. [id number] [facility] with [id number] 06:29:09* Test Item Value Reference Range Interpretation Comme nts WBC (test code = 6690-2) See_Comment H [Automated messa ge] The system which generated this result transmitted reference range: 4.30 - 11.10 10*3/?L. The reference range was not used to interpret this result as normal/abnormal. RBC (test code = 789-8) See_Comment [Automated messa ge] The system which generated this result transmitted reference range: 3.93 - 5.25 10*6/?L. The reference range was not used to interpret this result as normal/abnormal. HGB (test code = 718-7) 8.3 g/dL 11.6-15 L HCT (test code = 4544-3) 27.2 % 35.7-45.2 L MCV (test code = 787-2) 68.3 fL 80.6-95.5 L MCH (test code = 785-6) 20.9 pg 25.9-32.8 L MCHC (test code = 786-4) 30.5 g/dL 31.6-35.1 L RDW-SD (test code = 51790-4) 44.7 fL 39-49.9 RDW-CV (test code = 788-0) 18.6 % 12-15.5 H PLT (test code = 777-3) See_Comment [Automated messa ge] The system which generated this result transmitted reference range: 166 - 358 10*3/?L. The reference range was not used to interpret this result as normal/abnormal. MPV (test code = 03845-6) 10.4 fL 9.5-12.9 NRBC/100 WBC (test code = 3366331433) See_Comment [Automated me ssage] The system which generated this result transmitted reference range: 0.0 - 10.0 /100 WBCs. The reference range was not used to interpret this result as normal/abnormal. NRBC x10^3 (test code = 5797024673) See_Comment [Automated messa ge] The system which generated this result transmitted reference range: 10*3/?L. The reference range was not used to interpret this result as normal/abnormal. GRAN MAT (NEUT) % (test code = 770-8) 62.0 % IMM GRAN % (test code = 8674546026) 1.50 % LYMPH % (test code = 736-9) 29.4 % MONO % (test code = 5905-5) 6.4 % EOS % (test code = 713-8) 0.4 % BASO % (test code = 706-2) 0.3 % GRAN MAT x10^3(ANC) (test code = 8560506541) 7.03 10*3/uL 1.88-7.09 IMM GRAN x10^3 (test code = 9756578143) 0.17 10*3/uL 0-0.06 H LYMPH x10^3 (test code = 731-0) 3.33 10*3/uL 1.32-3.29 H MONO x10^3 (test code = 742-7) 0.72 10*3/uL 0.33-0.92 EOS x10^3 (test code = 711-2) 0.04 10*3/uL 0.03-0.39 BASO x10^3 (test code = 704-7) 0.03 10*3/uL 0.01-0.07 Lab Interpretation (test code = 40120-5) Abnormal [facility] GLUCOSE (AUTOMATED)2021-12-31 05:13:18* Test Item Value Reference Range Interpretation Comme nts POCT GLU (test code = 1290284891) 191 mg/dL 70-110 H Lab Interpretation (test cod e = 20567-5) Abnormal [facility] URINALYSIS W SPECIFIC [id number] 20:35:00* Test Item Value Reference Range Interpretation Comme nts POCT U SP GRAV (test code = 3255) . 1.005-1.025 POCT PH U (test code = 3254) . 5-8 POCT U LEUK EST (test code = 3263) ++ Negative - Negative POCT U NIT (test code = 3262) . Negative - Negati ve POCT U PROT (test code = 3259) about 30 Negative - Negat vera POCT U GLU (test code = 3256) normal Negative - Negati ve POCT U KETONE (test code = 3258) . Negative - Neg ative POCT U UROBILI (test code = 3260) . 0.2-1 POCT U BILI (test code = 3261) . Negative - Negat vera POCT U BLD (test code = 3257) . Negative - Negati ve POCT U COLOR (test code = 3266) danish POCT U APPEAR (test code = 3267) [facility] URINALYSIS W SPECIFIC [id number] 20:35:00* Test Item Value Reference Range Interpretation Comme nts POCT U SP GRAV (test code = 3255) . 1.005-1.025 POCT PH U (test code = 3254) . 5-8 POCT U LEUK EST (test code = 3263) ++ Negative - Negative POCT U NIT (test code = 3262) . Negative - Negati ve POCT U PROT (test code = 3259) about 30 Negative - Negat vera POCT U GLU (test code = 3256) normal Negative - Negati ve POCT U KETONE (test code = 3258) . Negative - Neg ative POCT U UROBILI (test code = 3260) . 0.2-1 POCT U BILI (test code = 3261) . Negative - Negat vera POCT U BLD (test code = 3257) . Negative - Negati ve POCT U COLOR (test code = 3266) danish POCT U APPEAR (test code = 3267) [facility] URINALYSIS W SPECIFIC [id number] 20:35:00* Test Item Value Reference Range Interpretation Comme nts POCT U SP GRAV (test code = 3255) . 1.005-1.025 POCT PH U (test code = 3254) . 5-8 POCT U LEUK EST (test code = 3263) ++ Negative - Negative POCT U NIT (test code = 3262) . Negative - Negati ve POCT U PROT (test code = 3259) about 30 Negative - Negat vera POCT U GLU (test code = 3256) normal Negative - Negati ve POCT U KETONE (test code = 3258) . Negative - Neg ative POCT U UROBILI (test code = 3260) . 0.2-1 POCT U BILI (test code = 3261) . Negative - Negat vera POCT U BLD (test code = 3257) . Negative - Negati ve POCT U COLOR (test code = 3266) danish POCT U APPEAR (test code = 3267) [facility] URINALYSIS W SPECIFIC [id number] 20:35:00* Test Item Value Reference Range Interpretation Comme nts POCT U SP GRAV (test code = 3255) . 1.005-1.025 POCT PH U (test code = 3254) . 5-8 POCT U LEUK EST (test code = 3263) ++ Negative - Negative POCT U NIT (test code = 3262) . Negative - Negati ve POCT U PROT (test code = 3259) about 30 Negative - Negat vera POCT U GLU (test code = 3256) normal Negative - Negati ve POCT U KETONE (test code = 3258) . Negative - Neg ative POCT U UROBILI (test code = 3260) . 0.2-1 POCT U BILI (test code = 3261) . Negative - Negat vera POCT U BLD (test code = 3257) . Negative - Negati ve POCT U COLOR (test code = 3266) danish POCT U APPEAR (test code = 3267) [facility] URINALYSIS W SPECIFIC [id number] 20:35:00* Test Item Value Reference Range Interpretation Comme nts POCT U SP GRAV (test code = 3255) . 1.005-1.025 POCT PH U (test code = 3254) . 5-8 POCT U LEUK EST (test code = 3263) ++ Negative - Negative POCT U NIT (test code = 3262) . Negative - Negati ve POCT U PROT (test code = 3259) about 30 Negative - Negat vera POCT U GLU (test code = 3256) normal Negative - Negati ve POCT U KETONE (test code = 3258) . Negative - Neg ative POCT U UROBILI (test code = 3260) . 0.2-1 POCT U BILI (test code = 3261) . Negative - Negat vera POCT U BLD (test code = 3257) . Negative - Negati ve POCT U COLOR (test code = 3266) danish POCT U APPEAR (test code = 3267) [facility] [id number] 20:35:00* Test Item Value Reference Range Interpretation Comme nts POCT U SP GRAV (test code = 3255) . 1.005-1.025 POCT PH U (test code = 3254) . 5-8 POCT U LEUK EST (test code = 3263) ++ Negative - Negative POCT U NIT (test code = 3262) . Negative - Negati ve POCT U PROT (test code = 3259) about 30 Negative - Negat vera POCT U GLU (test code = 3256) normal Negative - Negati ve POCT U KETONE (test code = 3258) . Negative - Neg ative POCT U UROBILI (test code = 3260) . 0.2-1 POCT U BILI (test code = 3261) . Negative - Negat vera POCT U BLD (test code = 3257) . Negative - Negati ve POCT U COLOR (test code = 3266) danish POCT U APPEAR (test code = 3267) [facility] [id number] 10:22:58SPECIMEN NUMBER: [id number] CULTURE, URINE SPECIMEN NUMBER: [id number] SPECIMEN COMMENT: URINE SOURCE: URINE REPORT STATUS: [...] PRESENT NO COMMON PATHOGENSMATERNAL AFP FOR NTD [id number] 15:16:44* Test Item Value Reference Range Interpretation Comme nts INTERPRETATION (test code = 118066) SCREEN NEGATIVE Neural tube defect risk (test code = 37197) 1:1196 Neural tube defect interpretation (test code = 58811) (NOTE) --- NORMAL - NOT AT INCREASED RISK --- The AFP results indicate a risk for neural tube defect less than or equal to that of the general population. (A normal result is defined as an Adjusted AFP M.O.M. of less than 2.50 for non-diabetics and less than 2.0 for diabetics). The gestation age was based upon Ultrasound Examination. Note that this is a screening test only. Normal results are not a guarantee of a normal . DATE OF (test code = 2660) 2000 MATERNAL WEIGHT (test code = 2657) 239 LBS INITIAL/REPEAT (test code = 765451) INITIAL FAMILY HISTORY OF NTD (test code = 342191) NO INSULIN DEP. DIABETIC (test code = 2659) NO RACE (test code = 2658) SMOKER? (test code = 872526) NO NUMBER OF GESTATIONS (test code = 81248) 1 GESTATIONAL AGE (test code = 2656) 20.0 WEEKS DETERMINED BY: (test code = 2654) US DATE OF SONOGRAM (test code = 90718) 06/07/2021 GESTATIONAL AGE AT SONO (test code = 2653) 10.6 WEEKS ADJUST AFP M.O.M. (test code = 2661) 1.465 M.O.M. AFP (test code = 17075) 65.0 NG/ML UNLESS OTHERWISE INDICATED, ALL TESTING PERFORMED [facility] [address] [place] [address] UTILITY SALES REPRESENTATIVE: YAYA MERCER M.D. [place] NUMBER [id number] [facility] [place]. [id number] CULTURE, [id number] 09:06:22SPECIMEN NUMBER: [id number] CULTURE, URINE SPECIMEN NUMBER: [id number] SPECIMEN COMMENT: URINE SOURCE: URINE REPORT STATUS: FINAL FINAL REPORT: 07/13/2021 >100,000 CFU/ML UROGENITAL SUSIE PRESENT NOCOMMON PATHOGENSDRUG ABUSE SCREEN 10 REFLEX [id number] 05:43:38* Test Item Value Reference Range Interpretation Comme nts AMPHETAMINES (test code = 3201) NEGATIVE NEGATIVE BARBITURATES (test code = 3202) NEGATIVE NEGATIVE BENZODIAZEPINES (test code = 3203) NEGATIVE NEGATIVE CANNABINOIDS (test code = 3204) NEGATIVE NEGATIVE COCAINE METABOLITE (test code = 3205) NEGATIVE NEGATIVE OPIATES (test code = 3209) NEGATIVE NEGATIVE OXYCODONE (test code = 35163) NEGATIVE NEGATIVE PHENCYCLIDINE (test code = 3210) NEGATIVE NEGATIVE METHADONE (test code = 3207) NEGATIVE NEGATIVE BUPRENORPHINE (test code = 33691) NEGATIVE NEGATIVE SOURCE (test code = 646133) URINE SEE BELOW FO R THRESHOLDS AND IMPORTANT METHOD NOTES ANALYTE SCREENING CUTOFF CONFIRMATORY CUTOFF AMPHETAMINES 500 NG/ML 100 NG/MLBARBITURATES 200 NG/ML 100 NG/MLBENZODIAZEPINES 200 NG/ML 100 NG/MLCANNABINOIDS (THC) 20 NG/ML 15 NG/MLCOCAINE METABOLITES 150 NG/ML 100 NG/MLOPIATE METABOLITES 300 NG/ML 100 NG/MLOXYCODONE 100 NG/ML 100 NG/MLPHENCYCLIDINE (PCP) 25 NG/ML 25 NG/MLMETHADONE 300 NG/ML 100 NG/MLBUPRENORPHINE 5 NG/ML 5 NG/ML NOTE: Screening methodology is qualitative Enzyme Immunoassay.The screening method may be less sensitive for certain medicationsincluding clonazepam and lorazepam in the benzodiazepine assay andtramadol or fentanyl in the opiate assay, amongst others. Patientcompliance, hydration status, timing and dose of medications, drugabsorption and specimen quality may affect screening assay.For clinical discrepancies, consider directed testing for specificcompounds or contact the laboratory within specimen stability toforward for confirmatory testing. This test is specified for medicalpurposes only. It is not valid for forensic use. UNLESS OTHERWISE INDICATED, ALL TESTING PERFORMED [facility] [address] [place] [address], [place] [address] UTILITY SALES REPRESENTATIVE: YAYA MERCER M.D. CLIA NUMBER [id number] [place]. [id number] GLUCOSE 1 HR POST 50 [id number] 04:51:49* Test Item Value Reference Range Interpretation Comme nts GLUCOSE 1 HR POST 50 GM (amber t code = 2005) 87 MG/DL <140 CULTURE, [id number] 08:46:16SPECIMEN NUMBER: [id number] CULTURE, URINE SPECIMEN NUMBER: [id number] SPECIMEN COMMENT: URINE SOURCE: URINE REPORT STATUS: FINAL FINAL REPORT: 06/09/2021 >100,000 CFU/ML UROGENITAL SUSIE PRESENT NOCOMMON PATHOGENSDRUG ABUSE SCREEN 10 REFLEX [id number] 12:01:40* Test Item Value Reference Range Interpretation Comments COMMENTS (test code = 3222) TEST NOT PERFORMED Unable to perform testing due to a laboratory error.Charges adjusted as applicable. Note: Validity testing suggests an altered, adulterated or compromised specimen. Analytic detection may be affected. Consideration should be given to repeat analysis on a newly acquired specimen or clinical correlation and medication review. AMPHETAMINES (test code = 3201) TEST NOT PERFORMED NEGATIVE BARBITURATES (test code = 3202) TEST NOT PERFORMED NEGATIVE BENZODIAZEPINES (test code = 3203) TEST NOT PERFORMED NEGATIVE CANNABINOIDS (test code = 3204) TEST NOT PERFORMED NEGATIVE COCAINE METABOLITE (test code = 3205) TEST NOT PERFORMED NEGATIVE OPIATES (test code = 3209) TEST NOT PERFORMED NEGATIVE OXYCODONE (test code = 51075) TEST NOT PERFORMED NEGATIVE PHENCYCLIDINE (test code = 3210) TEST NOT PERFORMED NEGATIVE METHADONE (test code = 3207) TEST NOT PERFORMED NEGATIVE BUPRENORPHINE (test code = 89385) TEST NOT PERFORMED NEGATIVE SOURCE (test code = 245903) TEST NOT PERFORMED SEE BELOW FOR THRESHOLDS AND IMPORTANT METHOD NOTES ANALYTE SCREENING CUTOFF CONFIRMATORY CUTOFF ___AMPHETAMINES 500 NG/ML 100 NG/MLBARBITURATES 200 NG/ML 100 NG/MLBENZODIAZEPINES 200 NG/ML 100 NG/MLCANNABINOIDS (THC) 20 NG/ML 15 NG/MLCOCAINE METABOLITES 150 NG/ML 100 NG/MLOPIATE METABOLITES 300 NG/ML 100 NG/MLOXYCODONE 100 NG/ML 100 NG/MLPHENCYCLIDINE (PCP) 25 NG/ML 25 NG/MLMETHADONE 300 NG/ML 100 NG/MLBUPRENORPHINE 5 NG/ML 5 NG/ML NOTE: Screening methodology is qualitative Enzyme Immunoassay.The screening method may be less sensitive for certain medicationsincluding clonazepam and lorazepam in the benzodiazepine assay andtramadol or fentanyl in the opiate assay, amongst others. Patientcompliance, hydration status, timing and dose of medications, drugabsorption and specimen quality may affect screening assay.For clinical discrepancies, consider directed testing for specificcompounds or contact the laboratory within specimen stability toforward for confirmatory testing. This test is specified for medicalpurposes only. It is not valid for forensic use. UNLESS OTHERWISE INDICATED, ALL TESTING PERFORMED [facility] [address] [place] [address] UTILITY SALES REPRESENTATIVE: YAYA MERCER M.D. IA NUMBER [id number] [facility] [place]. [id number] HEMOGLOBIN [id number] 10:51:35* Test Item Value Reference Range Interpretation Comme nts HEMOGLOBIN A1 (test code = 2575) 97.8 % 95.0-98.5 HEMOGLOBIN A2 (test code = 2576) 2.2 % 1.6-3.7 HEMOGLOBIN F () (test code = 2722) 0.0 % 0.0-2.0 HEMOGLOBIN S (test code = 2724) NONE % NONE DETECTED HEMOGLOBIN C (test code = 2726) NONE % NONE DETECTED OTHER HEMOGLOBIN VARIANT (test code = 44425) NONE DETEC % NONE DETECTED PATHOLOGIST'S INTERPRETATION (test code = 2577) (NOTE) NO ABNORMAL HEMOGLOBINS IDENTIFIED. IF NOT ALREADY PERFORMED, TESTINGFOR SERUM IRON, TIBC, AND FERRITIN IS SUGGESTED. IF IRON DEFICIENCYEXISTS AND IF HEMOGLOBIN DOES NOT NORMALIZE AFTER IRON STORES AREREPLENISHED, A REPEAT HEMOGLOBIN ELECTROPHORESIS IS SUGGESTED. IRONDEFICIENCY CAN OBSCURE THE DIAGNOSIS OF ALPHA-THALASSEMIA OR CAN CAUSEA SPURIOUS DECREASE IN HbA2, OBSCURING THE DIAGNOSIS OFBETA-THALASSEMIA. SAKSHI HOOVER M.D. CT/NG, NAAT, [id number] 18:48:48* Test Item Value Reference Range Interpretation Comme nts GONORRHEA, NAAT (test code = 17795) NEGATIVE NEGATIVE IMPORTANT NO JENNY: SEE ANNOUNCEMENT AT [email or web address] Note: Assay methodology is nucleic acid amplification by parole hearing officer mediated amplification (TMA) utilizing the Aptima Combo 2 Assay. CHLAMYDIA, NAAT (test code = 60804) NEGATIVE NEGATIVE IMPORTANT NO JENNY: SEE ANNOUNCEMENT AT [email or web address] Note: Assay methodology is nucleic acid amplification by parole hearing officer mediated amplification (TMA) utilizing the Aptima Combo 2 Assay. VARICELLA ZOSTER [id number] 16:11:55* Test Item Value Reference Range Interpretation Comme nts VARICELLA ZOSTER IgG (test code = 80407) 177 INDEX SEE BELOW INTERPRETATI ON VZV IgG NEGATIVE . . . . . . . . . . . . INDEX <135 EQUIVOCAL. . . . . . . . . . . . INDEX 135-164 NOTE: CONSIDER RETESTING IN A CLINICALLY SUITABLE PERIOD OF TIME, NO SOONER THAN 1-2 WEEKS. POSITIVE . . . . . . . . . . . . INDEX >=165 OBSTETRIC PANEL + [id number] 03:58:49* Test Item Value Reference Range Interpretation Comme nts WBC (test code = 1001) 11.7 K/UL 3.5-11.0 H RBC (test code = 1002) 4.41 M/UL 3.80-5.40 HEMOGLOBIN (test code = 1003) 10.8 G/DL 11.5-15.5 L HEMATOCRIT (test code = 1004) 33.6 % 34.0-45.0 L MCV (test code = 1005) 76.2 fL 80.0-99.0 L MCH (test code = 1006) 24.5 PG 25.0-33.0 L MCHC (test code = 1007) 32.1 G/DL 31.0-36.0 RDW (test code = 1038) 18.3 % 11.5-15.0 H NEUTROPHILS (test code = 1008) 72.5 % LYMPHOCYTES (test code = 1010) 21.3 % MONOCYTES (test code = 1011) 3.8 % EOSINOPHILS (test code = 1012) 1.8 % BASOPHILS (test code = 1013) 0.3 % IMMATURE GRANULOCYTES (test code = 1036) 0.3 % NUCLEATED RBCS (test code = 1065) 0.0 /100 WBC'S See_Comment [Automated me ssage] The system which generated this result transmitted reference range: 0.0. The reference range was not used to interpret this result as normal/abnormal. PLATELET COUNT (test code = 1015) 390 K/UL 130-400 ABSOLUTE NEUTROPHILS (test code = 1066) 8.49 K/UL 1.50-7.50 H ABSOLUTE LYMPHOCYTES (test code = 1067) 2.49 K/UL 1.00-4.00 ABSOLUTE MONOCYTES (test code = 1068) 0.45 K/UL 0.20-1.00 ABSOLUTE EOSINOPHILS (test code = 1040) 0.21 K/UL 0.00-0.50 ABSOLUTE BASOPHILS (test code = 1069) 0.03 K/UL 0.00-0.20 ABS IMMATURE GRANULOCYTES (test code = 1020) 0.04 K/UL 0.00-0.10 ABS NUCLEATED RBCS (test code = 32094) 0.00 K/UL 0.00-0.11 BLOOD TYPE AND RH (test code = 3901) O POSITIVE A HISTORICAL RECORD CHECK FOR PREVIOUS RESULTS IS NOT PERFORMED.THESE RESULTS SHOULD BE CORRELATED WITH RESULTS OF PRIOR BLOODTYPING AND ANTIBODY SCREEN STUDIES. ANTIBODY SCREEN (test code = 3902) NEGATIVE NEGATIVE A HISTORICAL RECORD CHECK FOR PREVIOUS RESULTS IS NOT PERFORMED.THESE RESULTS SHOULD BE CORRELATED WITH RESULTS OF PRIOR BLOODTYPING AND ANTIBODY SCREEN STUDIES. RUBELLA ANTIBODY SCREEN (test code = 4600) 31 IU/ML SEE BELOW INTERPRETATION RUBELLA IgG NON-REACTIVE/NON-IMM UNE . . . . . . . IU/ML <10 REACTIVE/IMMUNE . . . . . . . . . . . IU/ML >=10 RUBELLA IgG INTERP (test code = 71601) REACTIVE REACTIVE HEPATITIS B SURF AG (test code = 2739) NON-REACTIVE NON-REACTIVE RPR (test code = 86702) NON-REACTIVE NON-REACTIVE RPR TITER (test code = 3500) NOT INDIC. TITER NOT INDIC. HIV 1/2 4TH GEN, RFLX CONF (test code = 3514) NON-REACTIVE NON-REACTIVE HEPATITIS C REFLEX [id number] 03:58:49* Test Item Value Reference Range Interpretation Comme nts HEPATITIS C ANTIBODY (test c ode = 4675) NON-REACTIVE NON-REACTIVE [id number] 03:24:31* Test Item Value Reference Range Interpretation Comme nts RPR RESULT (test code = 3501) NON-REACTIVE NON-REACTIVE RPR TITER (test code = 3500) NOT INDIC. TITER NOT INDIC. [facility] [address] [address] PatientName: ELISEO PEREZ MR #: [id number] : 2000 Age/Sex: 16/F Req #: [id number] Adm Physician: Ordered by: MEGAN JOYNER [employer] Report #: [id number] Location: ER Room/Bed: Procedure: [id number] DX/LOWER LEG LEFT Exam Date: 06/30/17 Exam [...] SELWYN on 06/30/172099 COPY TO: MEGAN JOYNER DNPFOOT LEFT [place] [address] PatientName: ELISEO PEREZ MR #: [id number] : 2000 Age/Sex: 16/F Req #: [id number] Adm Physician: Ordered by: MEGAN JOY[facility] [employer] Report #: [id number] Location: ER Room/Bed: Procedure: [id number] DX/FOOT LEFT COMPLETE Exam Date: 06/30/17 Exam Time: 2007 REPORT STATUS: Signed EXAMINATION: ANKLE 3+ VIEWS LEFT, FOOT LEFT COMPLETE, LOWER LEG LEFT 06/30/2017 7:37 PM COMPARISON: None INDICATION: Fall, rule out fracture DISCUSSION: 3 views of the left ankle (AP, lateral, and oblique)2 views of the left lower leg (AP and lateral) 3 views of the left foot (AP, lateral, and oblique) No fracture or dislocation. Joint spaces are maintained. Soft tissues are unremarkable IMPRESSION: No acute radiographic abnormality of the left ankle, leg, or foot. Eva Jacobs MD Signed by: Dr. Debby Jacobs M.D. on 06/30/2017 9:00 PM Dictated By: EVA JACOBS MD 99 Transcribed By: SELWYN on 06/30/172099 COPY TO: MEGAN JOYNER NPANKLE 3+ VIEWS [place] [address] PatientName: ELISEO PEREZ MR #: [id number] : 2000 Age/Sex: 16/F Req #: [id number] Adm Physician: Ordered by: MEGAN [facility] [employer] Report #: [id number] Location: ER Room/Bed: Procedure: [id number] DX/ANKLE 3+ VIEWS LEFT Exam Date: 06/30/17 Exam Time: 2000 REPORT STATUS: Signed EXAMINATION: ANKLE 3+ VIEWS LEFT, FOOT LEFT COMPLETE, LOWER LEG LEFT 06/30/2017 7:37 PM COMPARISON: NoneINDICATION: Fall, rule out fracture DISCUSSION: 3 views of the left ankle (AP, lateral, and oblique) 2 views of the left lower leg (AP and lateral) 3 views of the left foot (AP, lateral, and oblique)No fracture or dislocation. Joint spaces are maintained. Soft tissues are unremarkable IMPRESSION: No acute radiographic abnormality of the left ankle, leg, or foot. Eva Jacobs MD Signed by: Dr. Natalya Jacobs M.D. on 06/30/2017 9:00 PM Dictated By: EVA JACOBS MD 99 Transcribed By: SELWYN on 06/30/172099 COPY TO: MEGAN JOYNER NP
[2023-09-01] MEDS ORDERED: CEFTRIAXONE 1000 MG/VIAL ONE (22:22)
[2023-09-01] MEDS ORDERED: ACETAMINOPHEN 500 MG TAB ONE (22:22)
[2023-09-01] MEDS ORDERED: ONDANSETRON 4 MG (ODT) TAB ONE (22:23)
[2023-09-01] MEDS ORDERED: WATER FOR INJ,STERILE 10 ML ONE (22:23)
[2023-09-01] MEDS ORDERED: AZITHROMYCIN 250 MG TAB ONE (22:23)
[2023-09-01] MEDS ORDERED: metroNIDAZOLE 500 MG TABLET ONE (22:23)
[2023-09-01 23:46] LABS: Specific Gravity > 1.030 (1.005-1.030)
[2023-09-01 23:51] LABS: Specific Gravity > 1.030 (1.005-1.030); Urine Bacteria None Seen /HPF (<20); Urine Bilirubin NEGATIVE (Negative); Urine Blood 1+ (Negative); Urine Clarity Extremely Turbid (Clear); Urine Color Yellow (Yellow); Urine Culture Reflex Order REFLEXED; Urine Glucose NEGATIVE (Negative); Urine Ketones 1+ (Negative); Urine Micro Reflex YN NO BILL MICROSCOPIC; Urine Mucus 2+ /HPF (None Seen); Urine Nitrite NEGATIVE (Negative); Urine Protein 1+ (Negative); Urine Urobilinogen 1+ (Normal)
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
[2023-09-02 00:59] VITALS: BP 122/83; TEMP 97.2; O2SAT 100
[2023-09-04 22:19] LABS: C.trachomatis RNA,TMA Not Detected (Not Detected); N.gonorrhoeae RNA,TMA Not Detected (Not Detected)
== END 2023-09-02 00:35 | disposition home or self-care (01) ==
LOC: ER 21:50
DX: O9A.311 Physical abuse complicating pregnancy, first trimester (principal); S09.90XA Unspecified injury of head, initial encounter; G44.309 Post-traumatic headache, unspecified, not intractable; Z20.2 Contact with and (suspected) exposure to infections with a predominantly sexual mode of transmission; Z3A.01 Less than 8 weeks gestation of pregnancy
CPT/HCPCS: 87088; 81001; 87086; 80048; 36415; 81025; 84702; 87590; 87490; 96372; 99284; Q0162; J0696